=== PATIENT | female | born 1930 | race African-American/Black ===

== ENCOUNTER 2018-11-14 20:14 | Inpatient (IN) | payer MEDICARE, OTHER ==
[~2018-11-14] VITALS: Ht 172.7 cm; Wt 60.8 kg
[2018-11-14 11:00] VITALS: BP 108/63
[2018-11-14] MEDS ORDERED: ASPIRIN81 MG ORAL (20:19)
[2018-11-14] MEDS ORDERED: CATAPRES0.1 MG ORAL (20:19)
[2018-11-14] MEDS ORDERED: COLACE100 MG ORAL (20:19)
[2018-11-14] MEDS ORDERED: CRANBERRY450 M4 PO (20:19)
[2018-11-14] MEDS ORDERED: LEXAPRO10 MG ORAL (20:26)
[2018-11-14] MEDS ORDERED: ACETAMINOPHEN325 M1 ORAL (20:26)
[2018-11-14] MEDS ORDERED: ROBITUSSIN NIG237 ML PO (20:26)
[2018-11-14] MEDS ORDERED: MULTIVITAMINS1 EAC8 ORAL (20:26)
[2018-11-14] MEDS ORDERED: Nitroglycerin 2% oint pkt TOPIC ONE (20:30)
[2018-11-14] MEDS ORDERED: Sodium Chloride 500ML 550 ML IV SCH (20:30)
[2018-11-14 20:58] VITALS: BP 167/101
[2018-11-14 21:02] LABS: APPEARANCE,URINE SLIGHTLY CLOUDY; BILIRUBIN, URINE NEGATIVE (NEGATIVE); COLOR,URINE PALE YELLOW; GLUCOSE, URINE (UA) NEGATIVE (NEGATIVE); KETONES,URINE NEGATIVE (NEGATIVE); LEUKOCYTE ESTERASE ,URINE 2+ (NEGATIVE); NITRITE,URINE NEGATIVE (NEGATIVE); PH,URINE 7 (4.5-8.0); PROTEIN,URINE NEGATIVE (NEGATIVE); UROBILINOGEN,URINE NORMAL MG/DL (0.0-1.0)
--- NOTE | 2018-11-14 21:02 | NUR ---
ED Nurse Note: [facility] Patient sent to [facility] ED for evaluation of CP by PCP. Patient AOx3, VSS, no s/s of acute distress noted at this time. Patient denies chest pain at this time. Patient seen by ERMD at bedside.
[2018-11-14 21:04] LABS: BASOPHILS % (AUTO) 1.6 % (0.0-2.0); EOSINOPHILS % (AUTO) 3.5 % (0.0-3.0); HEMATOCRIT 38.7 % (37.0-47.0); HEMOGLOBIN 12.4 G/DL (12.0-16.0); LYMPHOCYTES % (AUTO) 20.9 % (20.0-45.0); MEAN CORPUSCULAR VOLUME 93 FL (80-99); MONOCYTES % (AUTO) 9.4 % (1.0-10.0); NEUTROPHILS % (AUTO) 64.6 % (45.0-75.0); PLATELET COUNT 237 K/UL (150-450); RED BLOOD COUNT 4.17 M/UL (4.20-5.40); RED CELL DISTRIBUTION WIDTH 12.4 % (11.6-14.8); WHITE BLOOD COUNT 9.6 K/UL (4.8-10.8)
[2018-11-14 21:13] LABS: ANION GAP 7 mmol/L (5-15); BLOOD UREA NITROGEN 9 mg/dL (7-18); CALCIUM 9.5 MG/DL (8.5-10.1); CARBON DIOXIDE 29 MMOL/L (21-32); CHLORIDE 99 MMOL/L (98-107); CREATININE 0.6 MG/DL (0.55-1.30); SODIUM 135 MMOL/L (136-145)
[2018-11-14 21:18] LABS: ALANINE AMINOTRANSFERASE 21 U/L (12-78); ALBUMIN 2.9 G/DL (3.4-5.0); ALBUMIN/GLOBULIN RATIO 0.6 (1.0-2.7); ALKALINE PHOSPHATASE 114 U/L (46-116); ASPARTATE AMINO TRANSFERASE 21 U/L (15-37); BILIRUBIN,TOTAL 0.3 MG/DL (0.2-1.0); CREATINE KINASE 59 U/L (26-308)
[2018-11-14] MEDS ORDERED: cefTRIAXone 1 GM in NS 55 ML IVPB ONE (21:45)
--- NOTE | 2018-11-14 21:57 | Emergency Room Report ---
History of Present Illness General Chief Complaint: Chest Pain Source: Patient, EMS Present Illness HPI Patient brought by EMS for c/o chest pain. She is pain free now and due to dementia, unable to describe the pain she had very well. Denies cough, dyspnea , sore throat, NVD. Denies NVD, dysuria, joint pain, headache, leg pain. H/O COPD H/O dementia H/O muscle weakness Allergies: Coded Allergies: No Known Allergies (Unverified , 11/14/18) Patient History Limited by: medical condition Past Medical History: see triage record, old chart reviewed Social History: Denies: smoking Social History Narrative never , [facility] Reviewed Nursing Documentation: PMH: Agreed; PSxH: Agreed Nursing Documentation-PMH Hx Hypertension: Yes Hx Neurological Problems: Yes - dementia Review of Systems All Other Systems: limited Physical Exam Vital Signs Date Time Temp Pulse Resp B/P (MAP) Pulse Ox O2 Delivery O2 Flow Rate FiO2 11/14/18 20:03 97.9 62 18 182/70 99 Room Air Sp02 EP Interpretation: reviewed, normal General Appearance: no apparent distress, thin, other - GCS 14, Chronically Ill Head: normocephalic Eyes: bilateral eye normal inspection, bilateral eye PERRL ENT: moist mucus membranes Neck: supple Respiratory: chest non-tender, lungs clear, normal breath sounds Cardiovascular #1: regular rate, rhythm, no edema, no murmur Cardiovascular #2: 2+ radial (L) Gastrointestinal: normal inspection, normal bowel sounds, non tender, no mass, non-distended, scaphoid Genitourinary: no CVA tenderness Musculoskeletal: back normal, normal range of motion, other - atrophy Neurologic: alert, motor strength/tone normal, DTRs symmetric, sensory intact, oriented - X2 Psychiatric: mood/affect normal, other - poor recent memory Skin: normal inspection, warm/dry Medical Decision Making Diagnostic Impression: Primary Impression: Chest pain Qualified Codes: R07.9 - Chest pain, unspecified Additional Impressions: UTI (urinary tract infection) Qualified Codes: N39.0 - Urinary tract infection, site not specified Protein calorie malnutrition Qualified Codes: E44.0 - Moderate protein-calorie malnutrition Dementia Qualified Codes: F03.90 - Unspecified dementia without behavioral disturbance ER Course Patient presents with chest pain. DDX: AMI, ACS, GERD amongst others. Difficult to assess due to dementia and poor ability to remember specifics of event. Evaluation with EKG, CXR, labs. As pain free now, treatment with nitro paste and aspirin. conveyor monitor. EKG with LAD and NSSTTW changes. CXR with increased raymundo. CBC normal. CMP with min low sodium, low albumen. Initial troponin negative. BNP min elevated. UA with pyuria. Rocephin started in ED. Patient continues to be pain free but needs cardiac rule out. Admit telemetry. Dr. Britton requests admit to Dr. Abebe. Laboratory Tests Test 11/14/18 20:45 White Blood Count 9.6 K/UL (4.8-10.8) Red Blood Count 4.17 M/UL (4.20-5.40) L Hemoglobin 12.4 G/DL (12.0-16.0) Hematocrit 38.7 % (37.0-47.0) Mean Corpuscular Volume 93 FL (80-99) Mean Corpuscular Hemoglobin 29.8 PG (27.0-31.0) Mean Corpuscular Hemoglobin Concent 32.2 G/DL (32.0-36.0) Red Cell Distribution Width 12.4 % (11.6-14.8) Platelet Count 237 K/UL (150-450) Mean Platelet Volume 6.5 FL (6.5-10.1) Neutrophils (%) (Auto) 64.6 % (45.0-75.0) Lymphocytes (%) (Auto) 20.9 % (20.0-45.0) Monocytes (%) (Auto) 9.4 % (1.0-10.0) Eosinophils (%) (Auto) 3.5 % (0.0-3.0) H Basophils (%) (Auto) 1.6 % (0.0-2.0) Prothrombin Time 10.2 SEC (9.30-11.50) Prothrombin Time INR 1.0 (0.9-1.1) PTT 28 SEC (23-33) Urine Color Pale yellow Urine Appearance Slightly cloudy Urine pH 7 (4.5-8.0) Urine Specific [place] 1.010 (1.005-1.035) Urine Protein Negative (NEGATIVE) Urine Glucose (UA) Negative (NEGATIVE) Urine Ketones Negative (NEGATIVE) Urine Blood 2+ (NEGATIVE) H Urine Nitrite Negative (NEGATIVE) Urine Bilirubin Negative (NEGATIVE) Urine Urobilinogen Normal MG/DL (0.0-1.0) Urine Leukocyte Esterase 2+ (NEGATIVE) H Urine RBC 10-15 /HPF (0 - 2) H Urine WBC 5-10 /HPF (0 - 2) H Urine Squamous Epithelial Cells Few /LPF (NONE/OCC) Urine Bacteria Many /HPF (NONE) H Sodium Level 135 MMOL/L (136-145) L Potassium Level 4.0 MMOL/L (3.5-5.1) Chloride Level 99 MMOL/L (98-107) Carbon Dioxide Level 29 MMOL/L (21-32) Anion Gap 7 mmol/L (5-15) Blood Urea Nitrogen 9 mg/dL (7-18) Creatinine 0.6 MG/DL (0.55-1.30) Estimate Glomerular Filtration Rate mL/min (>60) Glucose Level 115 MG/DL (74-106) H Calcium Level 9.5 MG/DL (8.5-10.1) Total Bilirubin 0.3 MG/DL (0.2-1.0) Aspartate Amino Transferase (AST) 21 U/L (15-37) Alanine Aminotransferase (ALT) 21 U/L (12-78) Alkaline Phosphatase 114 U/L (46-116) Total Creatine Kinase 59 U/L (26-308) Troponin I 0.012 ng/mL (0.000-0.056) Pro-B-Type Natriuretic Peptide 223 pg/mL (0-125) H Total Protein 7.4 G/DL (6.4-8.2) Albumin 2.9 G/DL (3.4-5.0) L Globulin 4.5 g/dL Albumin/Globulin Ratio 0.6 (1.0-2.7) L EKG Diagnostic Results Rate: normal Rhythm: NSR ST Segments: no acute changes - LAD and NSSTTW changes Rhythm Strip Diag. Results EP Interpretation: yes Rhythm: NSR, no PVC's, no ectopy Chest X-Ray Diagnostic Results Chest X-Ray Diagnostic Results : Chest X-Ray Ordered: Yes # of Views/Limited/Complete: 1 View Indication: Chest Pain EP Interpretation: Yes Interpretation: no effusion, no pneumothorax, other - CHF Last Vital Signs Date Time Temp Pulse Resp B/P (MAP) Pulse Ox O2 Delivery O2 Flow Rate FiO2 11/14/18 20:58 97.9 65 18 167/101 99 Room Air Status: improved Disposition: ADMITTED INPATIENT Condition: Serious Referrals: Matthew Britton MD (PCP) Eligio Frausto MD Nov 14, 2018 21:57
--- NOTE | 2018-11-14 22:45 | NUR ---
NURSE NOTES: Received report from Taran ESCOBEDO from ED.
[2018-11-14 22:53] VITALS: BP 163/73
--- NOTE | 2018-11-14 22:54 | NUR ---
ED Nurse Note: Patient transferred to telemetry unit. Patient transferred on [employer] [employer], connected to beer still runner compounder, by radio television technical director and executive staff assistant. Patient report given to Negra ESCOBEDO at bedside. Patient AOx3, VSS, non ambulatory due to weakness, no s/s of acute distress noted at this time. Patient tolerated transfer well.
[2018-11-14 23:00] VITALS: BP 108/63
[2018-11-15 04:00] VITALS: BP 148/77
[2018-11-15 05:40] VITALS: BP 148/77
[2018-11-15] MEDS: Heparin 5000 units/ml inj SUBQ SCH ×3 (06:16→21:12)
[2018-11-15] MEDS ORDERED: Guaifenesin/DM 10ml syrup ORAL PRN (06:30)
[2018-11-15 07:24] LABS: BASOPHILS % (AUTO) 1.6 % (0.0-2.0); EOSINOPHILS % (AUTO) 5.5 % (0.0-3.0); HEMATOCRIT 37.7 % (37.0-47.0); HEMOGLOBIN 12.4 G/DL (12.0-16.0); LYMPHOCYTES % (AUTO) 19.7 % (20.0-45.0); MEAN CORPUSCULAR VOLUME 91 FL (80-99); MONOCYTES % (AUTO) 7.9 % (1.0-10.0); NEUTROPHILS % (AUTO) 65.3 % (45.0-75.0); PLATELET COUNT 231 K/UL (150-450); RED BLOOD COUNT 4.12 M/UL (4.20-5.40); RED CELL DISTRIBUTION WIDTH 12.5 % (11.6-14.8); WHITE BLOOD COUNT 7.6 K/UL (4.8-10.8)
--- NOTE | 2018-11-15 07:31 | NUR ---
NURSE NOTES: received patient report from raul dupont. patient is on bed. asleep. no acute distress noted. denies pain. aox1-2. bed is in low position. call light within reach. will continue to monitor.
[2018-11-15 07:33] LABS: ALANINE AMINOTRANSFERASE 20 U/L (12-78); ALBUMIN 2.9 G/DL (3.4-5.0); ALBUMIN/GLOBULIN RATIO 0.6 (1.0-2.7); ALKALINE PHOSPHATASE 107 U/L (46-116); ANION GAP 7 mmol/L (5-15); ASPARTATE AMINO TRANSFERASE 22 U/L (15-37); BILIRUBIN,TOTAL 0.4 MG/DL (0.2-1.0); BLOOD UREA NITROGEN 6 mg/dL (7-18); CALCIUM 9.6 MG/DL (8.5-10.1); CARBON DIOXIDE 27 MMOL/L (21-32); CHLORIDE 105 MMOL/L (98-107); CREATININE 0.6 MG/DL (0.55-1.30); PHOSPHORUS 3.3 MG/DL (2.5-4.9); SODIUM 139 MMOL/L (136-145)
[2018-11-15 08:00] VITALS: BP 134/82
[2018-11-15] MEDS: Multivitamin w/Minerals tab ORAL SCH (08:36)
[2018-11-15] MEDS: Aspirin Baby 81mg ORAL SCH (08:36)
[2018-11-15] MEDS: Docusate 100mg cap ORAL SCH (08:44)
--- NOTE | 2018-11-15 10:50 | NUR ---
CASE MANAGEMENT: REVIEW /F BIBA FROM [facility] CC: CHEST PAIN SI: ACS . UTI T 97.9 HR 62 RR 18 BP 182/70 SAT 99% ROOM AIR NA 135 TROPONIN I 0.012 IS: NS IVF BOLUS X1 NITRO TOPICAL X1 ASA PO X1 CEFTRIAXONE IV X1 INTERQUAL CRITERIA MET: PATIENT ADMITTED TO TELEMETRY UNIT 11/14/2018 DCP: PATIENT IS FROM [facility]
--- NOTE | 2018-11-15 11:21 | Diagnostic Imaging Report ---
Indication: Chest pain Technique: One view of the chest Comparison: none Findings: There is bilateral interstitial disease and central bronchial wall thickening and likely bronchiectasis. Some atelectasis or scarring is seen in the right perihilar region No definite focal airspace consolidation. No effusions. The heart is borderline enlarged with a left ventricular hypertrophy configuration. The aorta is tortuous and calcified. Impression: Bilateral interstitial disease, suspect on the basis of chronic fibrotic and/or senescent changes. Acute interstitial edema not completely excludable. Correlation with clinical findings is recommended. Borderline cardiomegaly Right perihilar atelectasis versus scarring
[2018-11-15 12:00] VITALS: BP 121/66
--- NOTE | 2018-11-15 13:04 | History & Physical ---
History and Physical History & Physicial Vincenzo bAebe MD Nov 15, 2018 13:04
--- NOTE | 2018-11-15 14:11 | Cardiac Electrophysiology PN ---
Subjective Subjective [id number] Objective Last 24 Hour Vital Signs Date Time Temp Pulse Resp B/P (MAP) Pulse Ox O2 Delivery O2 Flow Rate FiO2 11/15/18 09:00 Room Air 11/15/18 08:00 72 11/15/18 08:00 96.3 59 18 134/82 (99) 96 11/15/18 04:00 97.2 88 18 148/77 (100) 94 11/14/18 23:00 96.9 62 18 108/63 (78) 96 11/14/18 22:55 97.9 60 21 163/73 100 Room Air 11/14/18 22:55 Room Air 11/14/18 22:53 97.9 60 21 163/73 100 Room Air 11/14/18 20:58 97.9 65 18 167/101 99 Room Air 11/14/18 20:58 62 18 Room Air 11/14/18 20:47 167/101 11/14/18 20:03 97.9 62 18 182/70 99 Room Air Intake and Output 11/14/18 11/15/18 19:00 07:00 # Voids 3 # Bowel Movements 1 Laboratory Tests Test 11/14/18 20:45 11/15/18 06:15 White Blood Count 9.6 K/UL (4.8-10.8) 7.6 K/UL (4.8-10.8) Red Blood Count 4.17 M/UL (4.20-5.40) L 4.12 M/UL (4.20-5.40) L Hemoglobin 12.4 G/DL (12.0-16.0) 12.4 G/DL (12.0-16.0) Hematocrit 38.7 % (37.0-47.0) 37.7 % (37.0-47.0) Mean Corpuscular Volume 93 FL (80-99) 91 FL (80-99) Mean Corpuscular Hemoglobin 29.8 PG (27.0-31.0) 30.1 PG (27.0-31.0) Mean Corpuscular Hemoglobin Concent 32.2 G/DL (32.0-36.0) 32.9 G/DL (32.0-36.0) Red Cell Distribution Width 12.4 % (11.6-14.8) 12.5 % (11.6-14.8) Platelet Count 237 K/UL (150-450) 231 K/UL (150-450) Mean Platelet Volume 6.5 FL (6.5-10.1) 6.4 FL (6.5-10.1) L Neutrophils (%) (Auto) 64.6 % (45.0-75.0) 65.3 % (45.0-75.0) Lymphocytes (%) (Auto) 20.9 % (20.0-45.0) 19.7 % (20.0-45.0) L Monocytes (%) (Auto) 9.4 % (1.0-10.0) 7.9 % (1.0-10.0) Eosinophils (%) (Auto) 3.5 % (0.0-3.0) H 5.5 % (0.0-3.0) H Basophils (%) (Auto) 1.6 % (0.0-2.0) 1.6 % (0.0-2.0) Prothrombin Time 10.2 SEC (9.30-11.50) Prothromb Time International Ratio 1.0 (0.9-1.1) Activated Partial Thromboplast Time 28 SEC (23-33) Urine Color Pale yellow Urine Appearance Slightly cloudy Urine pH 7 (4.5-8.0) Urine Specific [place] 1.010 (1.005-1.035) Urine Protein Negative (NEGATIVE) Urine Glucose (UA) Negative (NEGATIVE) Urine Ketones Negative (NEGATIVE) Urine Blood 2+ (NEGATIVE) H Urine Nitrite Negative (NEGATIVE) Urine Bilirubin Negative (NEGATIVE) Urine Urobilinogen Normal MG/DL (0.0-1.0) Urine Leukocyte Esterase 2+ (NEGATIVE) H Urine RBC 10-15 /HPF (0 - 2) H Urine WBC 5-10 /HPF (0 - 2) H Urine Squamous Epithelial Cells Few /LPF (NONE/OCC) Urine Bacteria Many /HPF (NONE) H Sodium Level 135 MMOL/L (136-145) L 139 MMOL/L (136-145) Potassium Level 4.0 MMOL/L (3.5-5.1) 4.0 MMOL/L (3.5-5.1) Chloride Level 99 MMOL/L (98-107) 105 MMOL/L (98-107) Carbon Dioxide Level 29 MMOL/L (21-32) 27 MMOL/L (21-32) Anion Gap 7 mmol/L (5-15) 7 mmol/L (5-15) Blood Urea Nitrogen 9 mg/dL (7-18) 6 mg/dL (7-18) L Creatinine 0.6 MG/DL (0.55-1.30) 0.6 MG/DL (0.55-1.30) Estimat Glomerular Filtration Rate mL/min (>60) mL/min (>60) Glucose Level 115 MG/DL (74-106) H 85 MG/DL (74-106) Calcium Level 9.5 MG/DL (8.5-10.1) 9.6 MG/DL (8.5-10.1) Total Bilirubin 0.3 MG/DL (0.2-1.0) 0.4 MG/DL (0.2-1.0) Aspartate Amino Transf (AST/SGOT) 21 U/L (15-37) 22 U/L (15-37) Alanine Aminotransferase (ALT/SGPT) 21 U/L (12-78) 20 U/L (12-78) Alkaline Phosphatase 114 U/L (46-116) 107 U/L (46-116) Total Creatine Kinase 59 U/L (26-308) Troponin I 0.012 ng/mL (0.000-0.056) 0.017 ng/mL (0.000-0.056) Pro-B-Type Natriuretic Peptide 223 pg/mL (0-125) H 269 pg/mL (0-125) H Total Protein 7.4 G/DL (6.4-8.2) 7.6 G/DL (6.4-8.2) Albumin 2.9 G/DL (3.4-5.0) L 2.9 G/DL (3.4-5.0) L Globulin 4.5 g/dL 4.7 g/dL Albumin/Globulin Ratio 0.6 (1.0-2.7) L 0.6 (1.0-2.7) L Phosphorus Level 3.3 MG/DL (2.5-4.9) Magnesium Level 1.8 MG/DL (1.8-2.4) Microbiology Date/Time Source Procedure Growth Status 11/14/18 20:45 Urine,Clean Catch Urine Culture - Preliminary Resulted Buzz Rodrigues MD Nov 15, 2018 14:11
[2018-11-15] MEDS: cefTRIAXone 1 GM in D5W 50 ML IVPB SCH (14:58)
[2018-11-15 16:00] VITALS: BP 153/90
--- NOTE | 2018-11-15 18:30 | History and Physical Report ---
DATE OF ADMISSION: 11/14/2018 CHIEF COMPLAINT: Transferred from the [facility] due to chest pain. 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 The patient stated the chest pain radiated to the chin. No nausea or vomiting. Level of pain was noted to be 6/10. The patient is a poor historian. Most of the history is taken from [facility] documentation as well as the ER chart. Shortly after initial evaluation in the emergency, the patient was admitted to the hospital with chest pain, possible acute coronary syndrome as well as urinary tract infection. PAST MEDICAL HISTORY/PAST SURGICAL HISTORY: As above, history of COPD, oropharyngeal dysphagia, dementia, history of severe protein-calorie malnutrition, paroxysmal atrial fibrillation, osteoarthritis, hypertensive urgency, degenerative joint disease of the spine, and prior history of encephalopathy. MEDICATIONS: At the nursing facility is significant for aspirin 81 mg daily, clonidine 0.1 mg every six hours p.r.n. for systolic greater than 160, Colace 100 mg once a day, cranberry tablets, Lexapro 10 mg, multivitamin, Robitussin DM p.r.n., and p.r.n. ALLERGIES: No known drug allergies. SOCIAL HISTORY: half-way resident. No smoking, alcohol, or drugs. FAMILY HISTORY: Noncontributory. REVIEW OF SYSTEMS: Very limited secondary to the patient's status. No fever or chills. No nausea or vomiting. Complained about the back pain, arthritis, and joint pain. Denies any loss of consciousness. Denies any fall or head trauma. PHYSICAL EXAMINATION: VITAL SIGNS: On admission from the ER, temperature 97.9, pulse 62, respirations 18, and blood pressure 182/70. GENERAL: The patient is awake and responsive, in no acute distress, forgetful, and chronic ill-looking. HEAD AND NECK: Pupils are equal and reactive to light. Extraocular movements intact. Neck was supple. No JVD. Mouth has poor dentition. Neck was supple. No JVD. LUNGS: Good air entry. No wheezes or rales. Decreased air in the bases. HEART: S1, S2. Distant heart sounds. No murmurs, gallops, or rubs appreciated. ABDOMEN: Soft, nondistended, and nontender. Positive bowel sounds. EXTREMITIES: No cyanosis, clubbing, or edema. NEUROLOGIC: Cranial nerves II through XII grossly intact. The patient is moving all the extremities spontaneously. Gait was not assessed due to the patient's status. RECTAL: Refused and deferred. GENITOURINARY: Refused and deferred. PSYCHIATRIC: Mood and affect is intact. LABORATORY AND DIAGNOSTIC DATA: On admission from the ER, WBC of 9.6, hemoglobin 12, hematocrit 38, and platelet 237,000. Sodium 135, potassium 4.0, chloride 99, bicarbonate 29, BUN 9, and creatinine 0.6. Glucose is 115. Calcium is 9.5. First troponin is 0.012, second troponin 0.017. Pro-BNP of 223. PT 10, INR 1.0, and PTT 28. UA with + 2 blood, negative nitrite, +2 leukocytes, and many bacteria. Chest x-ray shows borderline cardiomegaly, bilateral interstitial disease suspected on the basis of chronic fibrotic and/or changes acute interstitial edema not completely excluded. ASSESSMENT: 1. Chest pain, possible acute coronary syndrome. 2. Paroxysmal atrial fibrillation. 3. Hypertension. 4. History of advanced dementia. 5. Hyponatremia. 6. Urinary tract infection. PLAN: 1. Admit the patient to monitored unit. 2. We will follow up with Dr. Rodrigues from Cardiology and Dr. Britton from Nephrology. 3. Broad spectrum antibiotic with Rocephin. 4. Monitor serial cardiac enzymes. 5. Code status, Full Code at this time. 6. DVT prophylaxis, heparin subcutaneous. Vincenzo Abebe M.D. DR: LEANDRO JOB#: [id number] CC:
--- NOTE | 2018-11-15 19:00 | Consultation ---
DATE OF CONSULTATION: 11/15/2018 CARDIOLOGY CONSULTATION CONSULTING PHYSICIAN: Buzz Rodrigues M.D. REFERRING PHYSICIAN: Vincenzo Abebe M.D. REASON FOR CONSULTATION: Chest pain and accelerated hypertension. HISTORY OF PRESENT ILLNESS: The patient is an 88-year-old lady with history of hypertension and dementia, was brought in from long-term for chest pain by paramedics. The patient also has history of COPD. The patient's blood pressure in the ER was 182/70, pulse was 62. The patient was admitted and a Cardiology consultation was obtained for further evaluation and management. REVIEW OF SYSTEMS: Negative other than what is mentioned in the history of present illness PAST MEDICAL HISTORY: As mentioned above. FAMILY HISTORY: Noncontributory. SOCIAL HISTORY: senior living resident. Does not smoke or drink alcohol. PHYSICAL EXAMINATION: VITAL SIGNS: Blood pressure was 162/76, currently 134/82; pulse 69; respirations 18; and temperature 96.3. HEAD AND NECK: No JVD or carotid bruits. LUNGS: Clear. CARDIOVASCULAR: Regular S1 and S2 with no gallop or murmur. ABDOMEN: Soft. EXTREMITIES: No pitting edema. LABORATORY AND DIAGNOSTIC DATA: Her labs show white count of 7.7, hemoglobin 12.4, hematocrit 37.7, and platelet count 231,000. Sodium 139, potassium 4.0, BUN 6, and creatinine 0.6. Troponin is negative x2. ASSESSMENT AND PLAN: 1. Chest pain. The pain is atypical. The patient was ruled out for myocardial infarction. Currently, she does not have any chest pain. We will get echocardiogram to evaluate for ejection fraction and wall motion abnormality. In the meantime continue the patient on aspirin 81 mg daily. 2. Hypertension. Start the patient on Lopressor 25 mg b.i.d. to chest pain as well. 3. Dementia. 4. Questionable history of atrial fibrillation, currently remain in sinus rhythm. Thank you very much, Dr. Abebe, for allowing me to participate in the care of this patient. Please do not hesitate to contact me for any questions regarding my evaluation. Buzz Rodrigues M.D. DR: JONA JOB#: [id number] CC:
--- NOTE | 2018-11-15 19:32 | NUR ---
HAND-OFF: Report given to joseilto dupont.
--- NOTE | 2018-11-15 19:50 | NUR ---
NURSE NOTES: Pt received from GREGG Muñoz alert and oriented x4 with no s/s of pain, SOB, or n/v. IV site lost per night RN "pt d/mitzy IV in her confusion". RN will attempt to put in IV for patient at a later time. Bed in lowest position, call light and belongings within reach.
[2018-11-15 20:00] VITALS: BP 131/77
[2018-11-16] VITALS: BP 145/88
[2018-11-16 04:00] VITALS: BP 131/67
[2018-11-16] MEDS: Heparin 5000 units/ml inj SUBQ SCH ×3 (05:47→21:23)
--- NOTE | 2018-11-16 07:11 | Cardiology Report ---
APPROVED REPORT EXAM: Two-dimensional and M-mode echocardiogram with Doppler and color Doppler. INDICATION Bradycardia M-Mode DIMENSIONS IVSd0.7 (0.7-1.1cm)Left Atrium (MM)3.5 (1.6-4.0cm) LVDd4.8 (3.5-5.6cm)Aortic Root3.1 (2.0-3.7cm) PWd0.7 (0.7-1.1cm)Aortic Cusp Exc.1.9 (1.5-2.0cm) LVDs3.0 (2.5-4.0cm) PWs1.0 cm Technically difficult study due to poor apical windows. Study quality precludes accurate assessment of regional wall motion. Normal left ventricular chamber size, systolic function and wall motion to extent visualized. Left ventricular ejection fraction estimated to be 60 %. No evidence of left ventricular hypertrophy. No evidence of pericardial effusion. All other cardiac chamber sizes are within normal limits. Mild focal aortic valve sclerosis with adequate cusp excursion. Mildly thickened mitral valve leaflets with normal excursion. Mild mitral annulus and aortic root calcification. Pulmonic valve not well visualized. Normal tricuspid valve structure. Subcostal views not obtainable. A color flow and spectral Doppler study was performed and revealed: Mild aortic insufficiency. No mitral regurgitation. Mitral diastolic velocities suggest mild left ventricular diastolic dysfunction (Grade I). Mild tricuspid regurgitation. Tricuspid systolic velocities suggests peak right ventricular systolic pressure of 37 mmHg, consistent with mild pulmonary hypertension. Mild pulmonic regurgitation present.
[2018-11-16 07:14] LABS: BASOPHILS % (AUTO) 2.1 % (0.0-2.0); EOSINOPHILS % (AUTO) 3.7 % (0.0-3.0); HEMOGLOBIN 12.1 G/DL (12.0-16.0); LYMPHOCYTES % (AUTO) 19.1 % (20.0-45.0); MEAN CORPUSCULAR VOLUME 91 FL (80-99); NEUTROPHILS % (AUTO) 68.1 % (45.0-75.0); PLATELET COUNT 230 K/UL (150-450); RED BLOOD COUNT 4.06 M/UL (4.20-5.40); RED CELL DISTRIBUTION WIDTH 12.4 % (11.6-14.8); WHITE BLOOD COUNT 7.9 K/UL (4.8-10.8)
--- NOTE | 2018-11-16 07:25 | NUR ---
HAND-OFF: Report given to GREGG Valencia.
--- NOTE | 2018-11-16 07:35 | NUR ---
NURSE NOTES: Report received from GREGG Sargent. Patient awake. AO x 1. In RA. Denies any pain or SOB. IV patent. Bed on lowest position, side rails upx2, brakes engaged. Call light within easy reach.
[2018-11-16 08:00] VITALS: BP 116/70
[2018-11-16] MEDS ORDERED: LORazepam Inj 2mg/ml 1ml IV PRN (08:00)
[2018-11-16 08:18] LABS: ALANINE AMINOTRANSFERASE 14 U/L (12-78); ALBUMIN/GLOBULIN RATIO 0.8 (1.0-2.7); ALKALINE PHOSPHATASE 112 U/L (46-116); ANION GAP 7 mmol/L (5-15); ASPARTATE AMINO TRANSFERASE 22 U/L (15-37); BILIRUBIN,TOTAL 0.7 MG/DL (0.2-1.0); BLOOD UREA NITROGEN 11 mg/dL (7-18); CALCIUM 9.2 MG/DL (8.5-10.1); CARBON DIOXIDE 30 MMOL/L (21-32); CHLORIDE 102 MMOL/L (98-107); CHOLESTEROL 207 MG/DL (< 200); CREATININE 0.6 MG/DL (0.55-1.30); HDL CHOLESTEROL 49 MG/DL (40-60); POTASSIUM 4.2 MMOL/L (3.5-5.1); SODIUM 138 MMOL/L (136-145); TRIGLYCERIDES 94 MG/DL (30-150)
[2018-11-16] MEDS: Docusate 100mg cap ORAL SCH (09:00)
[2018-11-16] MEDS: Multivitamin w/Minerals tab ORAL SCH (09:17)
[2018-11-16] MEDS: Aspirin Baby 81mg ORAL SCH (09:18)
[2018-11-16 12:00] VITALS: BP 133/78
--- NOTE | 2018-11-16 14:06 | Cardiac Electrophysiology PN ---
Assessment/Plan Assessment/Plan 1. Chest pain. The pain is atypical. The patient was ruled out for myocardial infarction. Currently, she does not have any chest pain. Echo EF 60%. On aspirin 81 mg daily.Stress test on Sunday 2. Hypertension.On Lasix 20 daily 3. Dementia. 4. Questionable history of atrial fibrillation, currently remain in sinus rhythm. SHERRY RN Subjective Subjective Comfortable in NAD. In SR with no arrhythmias. Pleasantly confused Objective Last 24 Hour Vital Signs Date Time Temp Pulse Resp B/P (MAP) Pulse Ox O2 Delivery O2 Flow Rate FiO2 11/16/18 12:00 58 11/16/18 12:00 97.8 63 18 133/78 (96) 95 11/16/18 09:00 Room Air 11/16/18 08:00 97.7 62 18 116/70 (85) 100 11/16/18 08:00 69 11/16/18 04:00 61 11/16/18 04:00 97.5 72 18 131/67 (88) 98 11/16/18 00:00 97.5 83 18 145/88 (107) 98 11/16/18 00:00 66 11/15/18 21:00 Room Air 11/15/18 20:00 97.0 68 17 131/77 (95) 97 11/15/18 20:00 88 11/15/18 16:00 63 11/15/18 16:00 96.9 66 18 153/90 (111) 98 Intake and Output 11/15/18 11/16/18 19:00 07:00 Intake Total 390 ml 100 ml Output Total 700 ml 450 ml Balance -310 ml -350 ml Intake Oral 390 ml 100 ml Output Urine Total 700 ml 450 ml Laboratory Tests Test 11/16/18 06:15 White Blood Count 7.9 K/UL (4.8-10.8) Red Blood Count 4.06 M/UL (4.20-5.40) L Hemoglobin 12.1 G/DL (12.0-16.0) Hematocrit 37.0 % (37.0-47.0) Mean Corpuscular Volume 91 FL (80-99) Mean Corpuscular Hemoglobin 29.9 PG (27.0-31.0) Mean Corpuscular Hemoglobin Concent 32.7 G/DL (32.0-36.0) Red Cell Distribution Width 12.4 % (11.6-14.8) Platelet Count 230 K/UL (150-450) Mean Platelet Volume 6.0 FL (6.5-10.1) L Neutrophils (%) (Auto) 68.1 % (45.0-75.0) Lymphocytes (%) (Auto) 19.1 % (20.0-45.0) L Monocytes (%) (Auto) 7.0 % (1.0-10.0) Eosinophils (%) (Auto) 3.7 % (0.0-3.0) H Basophils (%) (Auto) 2.1 % (0.0-2.0) H Sodium Level 138 MMOL/L (136-145) Potassium Level 4.2 MMOL/L (3.5-5.1) Chloride Level 102 MMOL/L (98-107) Carbon Dioxide Level 30 MMOL/L (21-32) Anion Gap 7 mmol/L (5-15) Blood Urea Nitrogen 11 mg/dL (7-18) Creatinine 0.6 MG/DL (0.55-1.30) Estimat Glomerular Filtration Rate mL/min (>60) Glucose Level 90 MG/DL (74-106) Calcium Level 9.2 MG/DL (8.5-10.1) Phosphorus Level 3.0 MG/DL (2.5-4.9) Magnesium Level 1.8 MG/DL (1.8-2.4) Total Bilirubin 0.7 MG/DL (0.2-1.0) Aspartate Amino Transf (AST/SGOT) 22 U/L (15-37) Alanine Aminotransferase (ALT/SGPT) 14 U/L (12-78) Alkaline Phosphatase 112 U/L (46-116) Troponin I 0.000 ng/mL (0.000-0.056) Total Protein 7.0 G/DL (6.4-8.2) Albumin 3.0 G/DL (3.4-5.0) L Globulin 4.0 g/dL Albumin/Globulin Ratio 0.8 (1.0-2.7) L Triglycerides Level 94 MG/DL (30-150) Cholesterol Level 207 MG/DL (< 200) H LDL Cholesterol 144 mg/dL (<100) H HDL Cholesterol 49 MG/DL (40-60) Cholesterol/HDL Ratio 4.2 (3.3-4.4) Thyroid Stimulating Hormone (TSH) 1.740 uiU/mL (0.358-3.740) Free Thyroxine 1.14 NG/DL (0.76-1.46) Microbiology Date/Time Source Procedure Growth Status 11/14/18 20:45 Urine,Clean Catch Urine Culture - Preliminary Gram Negative Aravind Resulted Objective HEAD AND NECK: No JVD or carotid bruits. LUNGS: Clear. CARDIOVASCULAR: Regular S1 and S2 with no gallop or murmur. ABDOMEN: Soft. EXTREMITIES: No pitting edema. Buzz Rodrigues MD Nov 16, 2018 14:06
--- NOTE | 2018-11-16 14:19 | Internal Med Progress Note ---
Subjective Date of Service: Nov 16, 2018 Physician Name Jase De La Torre Attending Physician Vincenzo Abebe MD Current Medications Medications (Trade) Dose Ordered Sig/Abiel Route PRN Reason Start Time Stop Time Status Last Admin Dose Admin Acetaminophen (Tylenol) 325 mg Q4H PRN ORAL Mild Pain (Pain Scale 1-3) 11/15/18 01:00 12/15/18 00:59 Aspirin (ASA) 81 mg DAILY ORAL 11/15/18 09:00 12/15/18 08:59 11/16/18 09:18 Ceftriaxone Sodium 1 gm/ Dextrose 50 ml @ 100 mls/hr Q24H IVPB 11/15/18 14:00 11/22/18 13:59 11/15/18 14:58 Clonidine HCl (Catapres Tab) 0.1 mg Q6H PRN ORAL For High Blood Pressure 11/15/18 01:00 12/15/18 00:59 Docusate Sodium (Colace) 100 mg DAILY ORAL 11/15/18 09:00 12/15/18 08:59 11/15/18 08:44 Escitalopram Oxalate (Lexapro) 10 mg DAILY ORAL 11/15/18 09:00 12/15/18 08:59 11/16/18 09:18 Furosemide (Lasix) 20 mg DAILY IV 11/15/18 09:00 12/15/18 08:59 11/16/18 09:18 Guaifenesin/ Dextromethorphan (Robitussin DM Syrup) 10 ml Q4H PRN ORAL For Cough 11/15/18 06:30 12/15/18 06:29 Heparin Sodium (Porcine) (Heparin 5000 units/ml) 5,000 units EVERY 8 HOURS SUBQ 11/15/18 06:00 12/15/18 05:59 11/16/18 05:47 Lorazepam (Ativan 2mg/ml 1ml) 0.5 mg Q6H PRN IV Agitation 11/16/18 08:00 11/23/18 07:59 Multivitamins Therapeutic (Therapeutic Multivitamin) 1 ea DAILY ORAL 11/15/18 09:00 12/15/18 08:59 11/16/18 09:17 Regadenoson (Lexiscan) 0.4 mg ONCE PRN IV stress test 11/17/18 09:00 11/18/18 18:00 Allergies: Coded Allergies: No Known Allergies (Unverified , 11/14/18) ROS Limited/Unobtainable: Yes Subjective 88 YO F admitted with chest pain. Cover for Int Dougie-Dr Abebe Objective Last Vital Signs Date Time Temp Pulse Resp B/P (MAP) Pulse Ox O2 Delivery O2 Flow Rate FiO2 11/16/18 12:00 58 11/16/18 12:00 97.8 18 133/78 (96) 95 11/16/18 09:00 Room Air Laboratory Tests Test 11/16/18 06:15 White Blood Count 7.9 K/UL (4.8-10.8) Red Blood Count 4.06 M/UL (4.20-5.40) L Hemoglobin 12.1 G/DL (12.0-16.0) Hematocrit 37.0 % (37.0-47.0) Mean Corpuscular Volume 91 FL (80-99) Mean Corpuscular Hemoglobin 29.9 PG (27.0-31.0) Mean Corpuscular Hemoglobin Concent 32.7 G/DL (32.0-36.0) Red Cell Distribution Width 12.4 % (11.6-14.8) Platelet Count 230 K/UL (150-450) Mean Platelet Volume 6.0 FL (6.5-10.1) L Neutrophils (%) (Auto) 68.1 % (45.0-75.0) Lymphocytes (%) (Auto) 19.1 % (20.0-45.0) L Monocytes (%) (Auto) 7.0 % (1.0-10.0) Eosinophils (%) (Auto) 3.7 % (0.0-3.0) H Basophils (%) (Auto) 2.1 % (0.0-2.0) H Sodium Level 138 MMOL/L (136-145) Potassium Level 4.2 MMOL/L (3.5-5.1) Chloride Level 102 MMOL/L (98-107) Carbon Dioxide Level 30 MMOL/L (21-32) Anion Gap 7 mmol/L (5-15) Blood Urea Nitrogen 11 mg/dL (7-18) Creatinine 0.6 MG/DL (0.55-1.30) Estimat Glomerular Filtration Rate mL/min (>60) Glucose Level 90 MG/DL (74-106) Calcium Level 9.2 MG/DL (8.5-10.1) Phosphorus Level 3.0 MG/DL (2.5-4.9) Magnesium Level 1.8 MG/DL (1.8-2.4) Total Bilirubin 0.7 MG/DL (0.2-1.0) Aspartate Amino Transf (AST/SGOT) 22 U/L (15-37) Alanine Aminotransferase (ALT/SGPT) 14 U/L (12-78) Alkaline Phosphatase 112 U/L (46-116) Troponin I 0.000 ng/mL (0.000-0.056) Total Protein 7.0 G/DL (6.4-8.2) Albumin 3.0 G/DL (3.4-5.0) L Globulin 4.0 g/dL Albumin/Globulin Ratio 0.8 (1.0-2.7) L Triglycerides Level 94 MG/DL (30-150) Cholesterol Level 207 MG/DL (< 200) H LDL Cholesterol 144 mg/dL (<100) H HDL Cholesterol 49 MG/DL (40-60) Cholesterol/HDL Ratio 4.2 (3.3-4.4) Thyroid Stimulating Hormone (TSH) 1.740 uiU/mL (0.358-3.740) Free Thyroxine 1.14 NG/DL (0.76-1.46) Microbiology Date/Time Source Procedure Growth Status 11/14/18 20:45 Urine,Clean Catch Urine Culture - Preliminary Gram Negative Aravind Resulted Intake and Output 11/15/18 11/16/18 19:00 07:00 Intake Total 390 ml 100 ml Output Total 700 ml 450 ml Balance -310 ml -350 ml Intake Oral 390 ml 100 ml Output Urine Total 700 ml 450 ml Objective PHYSICAL EXAMINATION: GENERAL: The patient is awake and responsive, in no acute distress, forgetful, and chronic ill-looking. HEAD AND NECK: Pupils are equal and reactive to light. Extraocular movements intact. Neck was supple. No JVD. Mouth has poor dentition. Neck was supple. No JVD. LUNGS: Good air entry. No wheezes or rales. Decreased air in the bases. HEART: S1, S2. Distant heart sounds. No murmurs, gallops, or rubs appreciated. ABDOMEN: Soft, nondistended, and nontender. Positive bowel sounds. EXTREMITIES: No cyanosis, clubbing, or edema. NEUROLOGIC: Cranial nerves II through XII grossly intact. The patient is moving all the extremities spontaneously. Gait was not assessed due to the patient's status. RECTAL: Refused and deferred. GENITOURINARY: Refused and deferred. PSYCHIATRIC: Mood and affect is intact. Assessment/Plan Assessment/Plan ASSESSMENT: 1. Chest pain, possible acute coronary syndrome. 2. Paroxysmal atrial fibrillation. 3. Hypertension. 4. History of advanced dementia. 5. Hyponatremia. 6. Urinary tract infection. PLAN: 1. Admit the patient to monitored unit. 2. We will follow up with Dr. Rodrigues from Cardiology and Dr. Britton from Nephrology. 3. Broad spectrum antibiotic with Rocephin. 4. Monitor serial cardiac enzymes. 5. Code status, Full Code at this time. 6. DVT prophylaxis, heparin subcutaneous. Jase De La Torre MD Nov 16, 2018 14:19
[2018-11-16] MEDS: cefTRIAXone 1 GM in D5W 50 ML IVPB SCH (15:14)
[2018-11-16 16:00] VITALS: BP 121/70
--- NOTE | 2018-11-16 17:04 | NUR ---
PT Note PT dwaine completed, treatment initiated. Patient can benefit from PT services to address deficits in ROM, balance, strength to improve her functional mobility. Recommend for patient to bed DC'd back to SNF. Addendum: 11/16/18 at 1705 by JUANITA ESPINO PT Amended: Links added.
--- NOTE | 2018-11-16 19:38 | NUR ---
HAND-OFF: Report given to GREGG Pendleton. Patient in stable condition. Addendum: 11/16/18 at 1940 by Annie Dhaliwal RN HAND-OFF: Report given to GREGG Sethi. Patient in stable condition.
--- NOTE | 2018-11-16 19:44 | NUR ---
NURSE NOTES: Report received from GREGG Valencia. Pt is lying comfortably in bed in semi-fowlers position with no signs of distress. Pt is A+Ox2 and denies pain/SOB. IV site is patent, intact, and saline locked. Respirations are even and unlabored on room air. Bed is at lowest position, brakes engaged, siderailsx2, bed alarm on, and call light within reach. Pt is in stable condition at this time; will continue to monitor.
[2018-11-16 20:00] VITALS: BP 128/65
[2018-11-17] VITALS: BP 133/74
[2018-11-17 04:00] VITALS: BP 159/80
[2018-11-17] MEDS: Heparin 5000 units/ml inj SUBQ SCH ×3 (06:04→22:00)
--- NOTE | 2018-11-17 07:24 | NUR ---
HAND-OFF: Report given to GREGG Valencia. Pt is in stable condition; plan of care endorsed.
--- NOTE | 2018-11-17 07:24 | NUR ---
NURSE NOTES: Report received from GREGG Nathan. Pt is lying comfortably in bed in semi-fowlers position with no signs of distress. Pt is AOx1-2. In RA, denies pain or SOB. IV site is patent, intact, and saline locked. Bed at lowest position, brakes engaged, siderails upx2, bed alarm on, and call light within reach.
[2018-11-17 07:50] LABS: BASOPHILS % (AUTO) 1.7 % (0.0-2.0); EOSINOPHILS % (AUTO) 5.2 % (0.0-3.0); HEMATOCRIT 39.4 % (37.0-47.0); HEMOGLOBIN 12.8 G/DL (12.0-16.0); LYMPHOCYTES % (AUTO) 19.2 % (20.0-45.0); MEAN CORPUSCULAR VOLUME 92 FL (80-99); MONOCYTES % (AUTO) 9.4 % (1.0-10.0); NEUTROPHILS % (AUTO) 64.4 % (45.0-75.0); PLATELET COUNT 210 K/UL (150-450); RED CELL DISTRIBUTION WIDTH 12.8 % (11.6-14.8); WHITE BLOOD COUNT 6.7 K/UL (4.8-10.8)
[2018-11-17 08:00] VITALS: BP 125/73
[2018-11-17 08:24] LABS: ANION GAP 4 mmol/L (5-15); BLOOD UREA NITROGEN 14 mg/dL (7-18); CARBON DIOXIDE 30 MMOL/L (21-32); CHLORIDE 103 MMOL/L (98-107); CREATININE 0.6 MG/DL (0.55-1.30); POTASSIUM 4.1 MMOL/L (3.5-5.1); SODIUM 136 MMOL/L (136-145)
[2018-11-17 08:36] LABS: CALCIUM 9.6 MG/DL (8.5-10.1)
[2018-11-17] MEDS ORDERED: Lexiscan 0.4mg/5ml syringe IV PRN (09:00)
[2018-11-17] MEDS: Multivitamin w/Minerals tab ORAL SCH (09:40)
[2018-11-17] MEDS: Docusate 100mg cap ORAL SCH (09:40)
[2018-11-17] MEDS: Aspirin Baby 81mg ORAL SCH (09:40)
[2018-11-17 12:00] VITALS: BP 125/72
[2018-11-17] MEDS ORDERED: Docusate 100mg/10ml Liq ORAL SCH (14:00)
[2018-11-17] MEDS: cefTRIAXone 1 GM in D5W 50 ML IVPB SCH (14:22)
--- NOTE | 2018-11-17 15:17 | Internal Med Progress Note ---
Subjective Date of Service: Nov 17, 2018 Physician Name Jase De La Torre Attending Physician Vincenzo Abebe MD Current Medications Medications (Trade) Dose Ordered Sig/Abiel Route PRN Reason Start Time Stop Time Status Last Admin Dose Admin Acetaminophen (Tylenol) 325 mg Q4H PRN ORAL Mild Pain (Pain Scale 1-3) 11/15/18 01:00 12/15/18 00:59 Aspirin (ASA) 81 mg DAILY ORAL 11/15/18 09:00 12/15/18 08:59 11/17/18 09:40 Ceftriaxone Sodium 1 gm/ Dextrose 50 ml @ 100 mls/hr Q24H IVPB 11/15/18 14:00 11/22/18 13:59 11/17/18 14:22 Clonidine HCl (Catapres Tab) 0.1 mg Q6H PRN ORAL For High Blood Pressure 11/15/18 01:00 12/15/18 00:59 Docusate Sodium (Colace) 100 mg DAILY ORAL 11/18/18 09:00 12/18/18 08:59 Escitalopram Oxalate (Lexapro) 10 mg DAILY ORAL 11/15/18 09:00 12/15/18 08:59 11/17/18 09:40 Furosemide (Lasix) 20 mg DAILY IV 11/15/18 09:00 12/15/18 08:59 11/17/18 09:41 Guaifenesin/ Dextromethorphan (Robitussin DM Syrup) 10 ml Q4H PRN ORAL For Cough 11/15/18 06:30 12/15/18 06:29 Heparin Sodium (Porcine) (Heparin 5000 units/ml) 5,000 units EVERY 8 HOURS SUBQ 11/15/18 06:00 12/15/18 05:59 11/17/18 14:28 Lorazepam (Ativan 2mg/ml 1ml) 0.5 mg Q6H PRN IV Agitation 11/16/18 08:00 11/23/18 07:59 Multivitamins Therapeutic (Therapeutic Multivitamin) 1 ea DAILY ORAL 11/15/18 09:00 12/15/18 08:59 11/17/18 09:40 Regadenoson (Lexiscan) 0.4 mg ONCE PRN IV stress test 11/17/18 09:00 11/18/18 18:00 Allergies: Coded Allergies: No Known Allergies (Unverified , 11/14/18) ROS Limited/Unobtainable: No Constitutional: Reports: no symptoms HEENT: Reports: no symptoms Cardiovascular: Reports: no symptoms Respiratory: Reports: no symptoms Gastrointestinal/Abdominal: Reports: nausea Genitourinary: Reports: no symptoms Neurologic/Psychiatric: Reports: no symptoms Subjective 88 YO F admitted with chest pain. Cover for Int Dougie-Dr Abebe. C/O nausea Objective Last Vital Signs Date Time Temp Pulse Resp B/P (MAP) Pulse Ox O2 Delivery O2 Flow Rate FiO2 11/17/18 12:00 56 11/17/18 12:00 97.0 20 125/72 (89) 94 11/17/18 09:00 Room Air Laboratory Tests Test 11/17/18 06:02 White Blood Count 6.7 K/UL (4.8-10.8) Red Blood Count 4.30 M/UL (4.20-5.40) Hemoglobin 12.8 G/DL (12.0-16.0) Hematocrit 39.4 % (37.0-47.0) Mean Corpuscular Volume 92 FL (80-99) Mean Corpuscular Hemoglobin 29.7 PG (27.0-31.0) Mean Corpuscular Hemoglobin Concent 32.4 G/DL (32.0-36.0) Red Cell Distribution Width 12.8 % (11.6-14.8) Platelet Count 210 K/UL (150-450) Mean Platelet Volume 5.6 FL (6.5-10.1) L Neutrophils (%) (Auto) 64.4 % (45.0-75.0) Lymphocytes (%) (Auto) 19.2 % (20.0-45.0) L Monocytes (%) (Auto) 9.4 % (1.0-10.0) Eosinophils (%) (Auto) 5.2 % (0.0-3.0) H Basophils (%) (Auto) 1.7 % (0.0-2.0) Sodium Level 136 MMOL/L (136-145) Potassium Level 4.1 MMOL/L (3.5-5.1) Chloride Level 103 MMOL/L (98-107) Carbon Dioxide Level 30 MMOL/L (21-32) Anion Gap 4 mmol/L (5-15) L Blood Urea Nitrogen 14 mg/dL (7-18) Creatinine 0.6 MG/DL (0.55-1.30) Estimat Glomerular Filtration Rate mL/min (>60) Glucose Level 91 MG/DL (74-106) Calcium Level 9.6 MG/DL (8.5-10.1) Microbiology Date/Time Source Procedure Growth Status 11/14/18 21:30 Nasal Nares MRSA Culture - Final NO METHICILLIN RESISTANT STAPH AUREUS... Complete 11/14/18 20:45 Urine,Clean Catch Urine Culture - Final Escherichia Coli Complete 11/14/18 21:30 Rectum - Final NO CARBAPENEM-RESISTANT ENTEROBACTERI... Complete 11/14/18 21:30 Rectum VRE Culture - Final NO VANCOMYCIN RESISTANT ENTEROCOCCUS ... Complete Intake and Output 11/16/18 11/17/18 19:00 07:00 Intake Total 200 ml Output Total 900 ml Balance -700 ml Intake Oral 200 ml Output Urine Total 900 ml # Voids 4 1 # Bowel Movements 2 1 Objective PHYSICAL EXAMINATION: GENERAL: The patient is awake and responsive, in no acute distress, forgetful, and chronic ill-looking. HEAD AND NECK: Pupils are equal and reactive to light. Extraocular movements intact. Neck was supple. No JVD. Mouth has poor dentition. Neck was supple. No JVD. LUNGS: Good air entry. No wheezes or rales. Decreased air in the bases. HEART: S1, S2. Distant heart sounds. No murmurs, gallops, or rubs appreciated. ABDOMEN: Soft, nondistended, and nontender. Positive bowel sounds. EXTREMITIES: No cyanosis, clubbing, or edema. NEUROLOGIC: Cranial nerves II through XII grossly intact. The patient is moving all the extremities spontaneously. Gait was not assessed due to the patient's status. RECTAL: Refused and deferred. GENITOURINARY: Refused and deferred. PSYCHIATRIC: Mood and affect is intact. Assessment/Plan Assessment/Plan ASSESSMENT: 1. Chest pain, possible acute coronary syndrome. 2. Paroxysmal atrial fibrillation. 3. Hypertension. 4. History of advanced dementia. 5. Hyponatremia. 6. Urinary tract infection. 7. Nausea PLAN: 1. Admit the patient to monitored unit. 2. We will follow up with Dr. Rodrigues from Cardiology and Dr. Britton from Nephrology. 3. Broad spectrum antibiotic with Rocephin. 4. Monitor serial cardiac enzymes. 5. Code status, Full Code at this time. 6. DVT prophylaxis, heparin subcutaneous. Jase De La Torre MD Nov 17, 2018 15:17
[2018-11-17 16:00] VITALS: BP 124/70
--- NOTE | 2018-11-17 16:23 | NUR ---
CASE MANAGEMENT: REVIEW 11/17/2018 SI: ACS . UTI T 97 HR 60 B/P 125/72 SATS 94% ON RA NO LABS TODAY IS: LASIX IV QD ASA PO QD LEXAPRO PO QD CEFTRIAXONE IV Q24H PLAN OF CARE: CXR STRESS TEST W/ MEDS
--- NOTE | 2018-11-17 19:35 | NUR ---
HAND-OFF: Report given to GREGG Nathan. Patient in stable condition.
[2018-11-17 20:00] VITALS: BP 131/78
[2018-11-18] VITALS: BP 145/72
[2018-11-18 04:00] VITALS: BP 155/62
[2018-11-18] MEDS: Heparin 5000 units/ml inj SUBQ SCH ×5 (06:40→23:12)
--- NOTE | 2018-11-18 07:28 | NUR ---
HAND-OFF: Report given to GREGG Muñoz. Pt is in stable condition; plan of care endorsed.
--- NOTE | 2018-11-18 07:29 | NUR ---
NURSE NOTES: Left message with Dr. Rodrigues regarding pt's family refusing cardiac stress test. MD aware and okay to D/C order.
--- NOTE | 2018-11-18 07:32 | NUR ---
NURSE NOTES: received patient report from fadia dupont. patient is on bed awake.no acute distress noted. comfortably eating breakfast. will continue to monitor.
[2018-11-18 08:00] VITALS: BP 120/59
[2018-11-18 08:29] LABS: BASOPHILS % (AUTO) 1.4 % (0.0-2.0); EOSINOPHILS % (AUTO) 7.5 % (0.0-3.0); HEMATOCRIT 39.1 % (37.0-47.0); HEMOGLOBIN 12.7 G/DL (12.0-16.0); LYMPHOCYTES % (AUTO) 13.7 % (20.0-45.0); MEAN CORPUSCULAR VOLUME 91 FL (80-99); MONOCYTES % (AUTO) 9.9 % (1.0-10.0); NEUTROPHILS % (AUTO) 67.5 % (45.0-75.0); PLATELET COUNT 217 K/UL (150-450); RED BLOOD COUNT 4.27 M/UL (4.20-5.40); RED CELL DISTRIBUTION WIDTH 12.8 % (11.6-14.8); WHITE BLOOD COUNT 6.4 K/UL (4.8-10.8)
[2018-11-18] MEDS: Aspirin Baby 81mg ORAL SCH (08:38)
[2018-11-18] MEDS: Multivitamin w/Minerals tab ORAL SCH (08:38)
[2018-11-18 08:44] LABS: ANION GAP 7 mmol/L (5-15); BLOOD UREA NITROGEN 9 mg/dL (7-18); CALCIUM 9.6 MG/DL (8.5-10.1); CARBON DIOXIDE 28 MMOL/L (21-32); CHLORIDE 99 MMOL/L (98-107); CREATININE 0.6 MG/DL (0.55-1.30); SODIUM 134 MMOL/L (136-145)
[2018-11-18] MEDS ORDERED: Docusate 100mg/10ml Liq ORAL SCH (09:00)
--- NOTE | 2018-11-18 09:57 | Cardiac Electrophysiology PN ---
Assessment/Plan Assessment/Plan 1. Chest pain. The pain is atypical. The patient was ruled out for myocardial infarction. Currently, she does not have any chest pain. Echo EF 60%. On aspirin 81 mg daily.Family Stress test 2. Hypertension. DC Lasix 3. Dementia. 4. Questionable history of atrial fibrillation, currently remain in sinus rhythm. SHERRY RN Subjective Subjective Comfortable in NAD. In SR with no arrhythmias. Pleasantly confused. Granddaughter at bedside and refused stress test. Objective Last 24 Hour Vital Signs Date Time Temp Pulse Resp B/P (MAP) Pulse Ox O2 Delivery O2 Flow Rate FiO2 11/18/18 08:55 Room Air 11/18/18 08:00 96.3 64 18 120/59 (79) 92 11/18/18 07:23 89 11/18/18 04:00 97.9 69 20 155/62 (93) 96 11/18/18 04:00 65 11/18/18 00:00 66 11/18/18 00:00 97.3 72 20 145/72 (96) 94 11/17/18 21:00 Room Air 11/17/18 20:00 97.7 64 22 131/78 (95) 97 11/17/18 20:00 66 11/17/18 16:00 97.6 62 20 124/70 (88) 95 11/17/18 16:00 71 11/17/18 12:00 56 11/17/18 12:00 97.0 60 20 125/72 (89) 94 Intake and Output 11/17/18 11/18/18 18:59 06:59 Intake Total 120 ml 50 ml Balance 120 ml 50 ml Intake Oral 120 ml 50 ml # Voids 2 Laboratory Tests Test 11/18/18 07:05 White Blood Count 6.4 K/UL (4.8-10.8) Red Blood Count 4.27 M/UL (4.20-5.40) Hemoglobin 12.7 G/DL (12.0-16.0) Hematocrit 39.1 % (37.0-47.0) Mean Corpuscular Volume 91 FL (80-99) Mean Corpuscular Hemoglobin 29.8 PG (27.0-31.0) Mean Corpuscular Hemoglobin Concent 32.6 G/DL (32.0-36.0) Red Cell Distribution Width 12.8 % (11.6-14.8) Platelet Count 217 K/UL (150-450) Mean Platelet Volume 6.3 FL (6.5-10.1) L Neutrophils (%) (Auto) 67.5 % (45.0-75.0) Lymphocytes (%) (Auto) 13.7 % (20.0-45.0) L Monocytes (%) (Auto) 9.9 % (1.0-10.0) Eosinophils (%) (Auto) 7.5 % (0.0-3.0) H Basophils (%) (Auto) 1.4 % (0.0-2.0) Sodium Level 134 MMOL/L (136-145) L Potassium Level 4.0 MMOL/L (3.5-5.1) Chloride Level 99 MMOL/L (98-107) Carbon Dioxide Level 28 MMOL/L (21-32) Anion Gap 7 mmol/L (5-15) Blood Urea Nitrogen 9 mg/dL (7-18) Creatinine 0.6 MG/DL (0.55-1.30) Estimat Glomerular Filtration Rate mL/min (>60) Glucose Level 96 MG/DL (74-106) Calcium Level 9.6 MG/DL (8.5-10.1) Objective HEAD AND NECK: No JVD or carotid bruits. LUNGS: Clear. CARDIOVASCULAR: Regular S1 and S2 with no gallop or murmur. ABDOMEN: Soft. EXTREMITIES: No pitting edema. Buzz Rodrigues MD Nov 18, 2018 09:57
--- NOTE | 2018-11-18 11:00 | Diagnostic Imaging Report ---
Indication: Cough Technique: One view of the chest Comparison: 11/14/2018 Findings: Bronchial wall thickening and atelectasis at the right lung base persists. The heart size is borderline enlarged. The aorta is tortuous and calcified. Linear opacities in the left perihilar region persists. The pleural spaces are grossly clear. Findings are unchanged Impression: Unchanged, over 3 days, findings as above.
--- NOTE | 2018-11-18 11:23 | NUR ---
ST NOTE: BESIDE SWALLOW EVAL RECEIVED BEDSIDE SWALLOW EVAL CHART REVIEWED PRIOR THE EVAL PT IS A 88-YEAR-OLD FEMALE WHO WAS ADMITTED DUE TO CHEST PAIN. DYSPHAGIA RISK FACTORS: H/O DYSPHAGIA, DEMENTIA, COPD, SEVERE PROTEIN-CALORIE MALNUTRITION. PLOF: PT RESIDES AT SNF. PER CHART, PT WAS ON PUREE WITH THIN LIQUIDS. PT IS FULL CODE. CURRENT STATUS: PT SEEN AT BEDSIDE IN AM WITH PT'S GRANDDAUGHTER AT BEDSIDE. PT ALERT, COOPERATIVE, FOLLOWS DIRECTIONS, SEEMS [id number]. PT WITH NC(1L). PER PT AND PT'S GRANDDAUGHTER, PT DISLIKES THICKENED LIQUIDS AND WOULD NOT DRINK THE LIQUIDS. 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 MILD INCREASED ORAL TRANSIT TIME AND OROPHARYNGEAL TRANSIT TIME, FAIR LARYNGEAL ELEVATION, NO OVERT S/S OF ASPIRATION. DUE TO PT HAS H/O DEMENTIA, PT HAS RISK FOR (SILENT) ASPIRATION. RECOMMENDATIONS: 1. FOR QUALITY OF LIFE, CONTINUE ORAL DIET. DUE TO PT DISLIKES THICKENED LIQUIDS, CHANGED DIET TO MOIST PUREE WITH THIN LIQUIDS. 2. STRICT ASPIRATION PRECAUTIONS WITH 1TO1 SUPERVISION 3. VIDEOSWALLOW STUDY IF NEEDED IP OR OP D/W PT AND GRANDDAUGHTER. POSTED ASPIRATION PRECAUTIONS SIGN.
[2018-11-18 12:00] VITALS: BP 118/62
[2018-11-18] MEDS: cefTRIAXone 1 GM in D5W 50 ML IVPB SCH (14:01)
--- NOTE | 2018-11-18 14:22 | NUR ---
NURSE NOTES: left a message to dr cevallos regarding patients Na level of 134. awaits new order.
--- NOTE | 2018-11-18 15:07 | Internal Med Progress Note ---
Subjective Date of Service: Nov 18, 2018 Physician Name Jase De La Torre Attending Physician Vincenzo Abebe MD Current Medications Medications (Trade) Dose Ordered Sig/Abiel Route PRN Reason Start Time Stop Time Status Last Admin Dose Admin Acetaminophen (Tylenol) 325 mg Q4H PRN ORAL Mild Pain (Pain Scale 1-3) 11/15/18 01:00 12/15/18 00:59 Aspirin (ASA) 81 mg DAILY ORAL 11/15/18 09:00 12/15/18 08:59 11/18/18 08:38 Ceftriaxone Sodium 1 gm/ Dextrose 50 ml @ 100 mls/hr Q24H IVPB 11/15/18 14:00 11/22/18 13:59 11/18/18 14:01 Clonidine HCl (Catapres Tab) 0.1 mg Q6H PRN ORAL For High Blood Pressure 11/15/18 01:00 12/15/18 00:59 Docusate Sodium (Colace) 100 mg DAILY ORAL 11/18/18 09:00 12/18/18 08:59 11/18/18 08:38 Escitalopram Oxalate (Lexapro) 10 mg DAILY ORAL 11/15/18 09:00 12/15/18 08:59 11/18/18 08:38 Guaifenesin/ Dextromethorphan (Robitussin DM Syrup) 10 ml Q4H PRN ORAL For Cough 11/15/18 06:30 12/15/18 06:29 Heparin Sodium (Porcine) (Heparin 5000 units/ml) 5,000 units EVERY 8 HOURS SUBQ 11/15/18 06:00 12/15/18 05:59 11/18/18 14:03 Lorazepam (Ativan 2mg/ml 1ml) 0.5 mg Q6H PRN IV Agitation 11/16/18 08:00 11/23/18 07:59 Multivitamins Therapeutic (Therapeutic Multivitamin) 1 ea DAILY ORAL 11/15/18 09:00 12/15/18 08:59 11/18/18 08:38 Regadenoson (Lexiscan) 0.4 mg ONCE PRN IV stress test 11/17/18 09:00 11/18/18 18:00 Allergies: Coded Allergies: No Known Allergies (Unverified , 11/14/18) ROS Limited/Unobtainable: No Constitutional: Reports: no symptoms HEENT: Reports: no symptoms Cardiovascular: Reports: no symptoms Respiratory: Reports: no symptoms Gastrointestinal/Abdominal: Reports: nausea Genitourinary: Reports: no symptoms Neurologic/Psychiatric: Reports: no symptoms Subjective 88 YO F admitted with chest pain. Cover for Int Dougie-Dr Abebe. Objective Last Vital Signs Date Time Temp Pulse Resp B/P (MAP) Pulse Ox O2 Delivery O2 Flow Rate FiO2 11/18/18 12:00 96.5 62 18 118/62 (80) 91 11/18/18 08:55 Room Air Laboratory Tests Test 11/18/18 07:05 White Blood Count 6.4 K/UL (4.8-10.8) Red Blood Count 4.27 M/UL (4.20-5.40) Hemoglobin 12.7 G/DL (12.0-16.0) Hematocrit 39.1 % (37.0-47.0) Mean Corpuscular Volume 91 FL (80-99) Mean Corpuscular Hemoglobin 29.8 PG (27.0-31.0) Mean Corpuscular Hemoglobin Concent 32.6 G/DL (32.0-36.0) Red Cell Distribution Width 12.8 % (11.6-14.8) Platelet Count 217 K/UL (150-450) Mean Platelet Volume 6.3 FL (6.5-10.1) L Neutrophils (%) (Auto) 67.5 % (45.0-75.0) Lymphocytes (%) (Auto) 13.7 % (20.0-45.0) L Monocytes (%) (Auto) 9.9 % (1.0-10.0) Eosinophils (%) (Auto) 7.5 % (0.0-3.0) H Basophils (%) (Auto) 1.4 % (0.0-2.0) Sodium Level 134 MMOL/L (136-145) L Potassium Level 4.0 MMOL/L (3.5-5.1) Chloride Level 99 MMOL/L (98-107) Carbon Dioxide Level 28 MMOL/L (21-32) Anion Gap 7 mmol/L (5-15) Blood Urea Nitrogen 9 mg/dL (7-18) Creatinine 0.6 MG/DL (0.55-1.30) Estimat Glomerular Filtration Rate mL/min (>60) Glucose Level 96 MG/DL (74-106) Calcium Level 9.6 MG/DL (8.5-10.1) Intake and Output 11/17/18 11/18/18 19:00 07:00 Intake Total 120 ml 50 ml Balance 120 ml 50 ml Intake Oral 120 ml 50 ml # Voids 2 Objective PHYSICAL EXAMINATION: GENERAL: The patient is awake and responsive, in no acute distress, forgetful, and chronic ill-looking. HEAD AND NECK: Pupils are equal and reactive to light. Extraocular movements intact. Neck was supple. No JVD. Mouth has poor dentition. Neck was supple. No JVD. LUNGS: Good air entry. No wheezes or rales. Decreased air in the bases. HEART: S1, S2. Distant heart sounds. No murmurs, gallops, or rubs appreciated. ABDOMEN: Soft, nondistended, and nontender. Positive bowel sounds. EXTREMITIES: No cyanosis, clubbing, or edema. NEUROLOGIC: Cranial nerves II through XII grossly intact. The patient is moving all the extremities spontaneously. Gait was not assessed due to the patient's status. RECTAL: Refused and deferred. GENITOURINARY: Refused and deferred. PSYCHIATRIC: Mood and affect is intact. Assessment/Plan Assessment/Plan ASSESSMENT: 1. Atypical Chest pain 2. Paroxysmal atrial fibrillation. 3. Hypertension. 4. History of advanced dementia. 5. Hyponatremia. 6. Urinary tract infection. 7. Nausea PLAN: 1. Transfer to Med/surg 2. We will follow up with Dr. Rodrigues from Cardiology and Dr. Britton from Nephrology. 3. Broad spectrum antibiotic with Rocephin. 4. Monitor serial cardiac enzymes. 5. Code status, Full Code at this time. 6. DVT prophylaxis, heparin subcutaneous. 7. UTI=E. Coli-continue ceftriaxone Jase De La Torre MD Nov 18, 2018 15:07
[2018-11-18 16:00] VITALS: BP 145/89
--- NOTE | 2018-11-18 16:42 | NUR ---
NURSE NOTES: dr cevallos acknowledged the report for Na level 134.no new orders received.
--- NOTE | 2018-11-18 19:10 | NUR ---
NURSE NOTES: Received pt. and report from GREGG Muñoz. Observe pt. asleep in bed. IV site intact, asymptomatic, and patent. Bed is in the lowest position and locked. Call light within reach. No acute distress noted at this time. Pt. has order to be transfer to Med Surg. Awaiting room assignment. conveyor monitor removed. Will continue plan of care until transfer.
--- NOTE | 2018-11-18 19:18 | NUR ---
HAND-OFF: Report given to lucrecia dupont.
[2018-11-18 20:00] VITALS: BP 153/88
--- NOTE | 2018-11-18 22:05 | NUR ---
TRANSFER TO FLOOR: Patient transferred to [facility], room [address] De La Torre's order. Pt. transferred to floor without incident. Report given to LUCILA Ramires. Belongings list checked and orders transferred. Called granddaughter, Aleena, and left a voicemail regarding transferred. Plan of care endorsed.
--- NOTE | 2018-11-18 22:10 | NUR ---
NURSE NOTES:Patient received from MY Jessica Patient in bed awake, alert and oriented x3. patient denies any pain . no sob/no n/v noted . patient incontinent of urine . kept clean and dry at all times . RFA g#22 H/L patent and intact . call light within reach . bed in low position at all times . will continue to monitor patient . Addendum: 11/19/18 at 0018 by JAMES OLEARY LVN Patient skin is intact . no personal belongings .Elvie Chen (granddaughter) notified and aware patient location 303 bed 1. Addendum: 11/20/18 at 1831 by JAMES OLEARY LVN Patient from [address] [place], [place] [address]etry room 202 bed1 to 303 bed 1
[2018-11-19] VITALS (7 sets, daily range): BP systolic 126–153; BP diastolic 68–77
--- NOTE | 2018-11-19 01:20 | Consultation ---
History of Present Illness General Chief Complaint: Chest Pain Present Illness HPI 88-year-old female with past medical history of advanced dementia, and degenerative joint disease of the spine, knees, paroxysmal atrial fibrillation, hypertension, COPD, , who presented to the hospital from a snf [facility] for chest pain. the pt is well known to me from . the pt has been anxious and depressed. the pt has been withdrawn the pt is unable to provide hx. Allergies: Coded Allergies: No Known Allergies (Unverified , 11/14/18) Medication History Scheduled Aspirin* (Aspirin*), 81 MG ORAL DAILY, (Reported) Clonidine Hcl* (Catapres*), 0.1 MG ORAL EVERY 6 HOURS, (Reported) Cranberry Fruit Concentrate (Cranberry), 450 MG PO BID, (Reported) Docusate Sodium* (Colace*), 100 MG ORAL DAILY, (Reported) Escitalopram Oxalate* (Lexapro*), 10 MG ORAL DAILY, (Reported) Multivitamin With Minerals (Multivitamins With Minerals*), 1 TAB ORAL DAILY, ( Reported) Scheduled PRN Acetaminophen* (Acetaminophen 325MG Tablet*), 325 MG ORAL Q4H PRN for Mild Pain (Pain Scale 1-3), (Reported) Dextromethorphan Hb/Doxylamine (Robitussin Nighttime Cough Dm), 10 ML PO EVERY 4 HOURS PRN for For Cough, (Reported) Patient History Limited by: medical condition History Provided By: Patient, Medical Record, PMD Healthcare decision maker Resuscitation status Full Code Advanced Directive on File Past Medical/Surgical History Past Medical/Surgical History: (1) ACS (acute coronary syndrome) (2) Dementia (3) Protein calorie malnutrition (4) UTI (urinary tract infection) (5) Chest pain Review of Systems Psychiatric: Reports: prior hx, anxiety, depressed feelings, emotional problems Physical Exam General Appearance: alert, confused Neurologic: depressed affect Last 24 Hour Vital Signs Date Time Temp Pulse Resp B/P (MAP) Pulse Ox O2 Delivery O2 Flow Rate FiO2 11/19/18 00:00 97.4 78 20 126/70 (88) 97 11/18/18 22:00 Room Air 11/18/18 21:00 Room Air 11/18/18 20:00 97.7 68 18 153/88 (109) 94 11/18/18 16:00 63 11/18/18 16:00 96.3 72 18 145/89 (107) 98 11/18/18 12:00 96.5 62 18 118/62 (80) 91 11/18/18 12:00 56 11/18/18 08:55 Room Air 11/18/18 08:00 96.3 64 18 120/59 (79) 92 11/18/18 07:23 89 11/18/18 04:00 97.9 69 20 155/62 (93) 96 11/18/18 04:00 65 Intake and Output 11/18/18 11/19/18 19:00 07:00 Intake Total 730 ml 240 ml Output Total 800 ml 200 ml Balance -70 ml 40 ml Intake Oral 630 ml 240 ml IV Total 100 ml Output Urine Total 800 ml 200 ml # Voids 1 2 Laboratory Tests Test 11/18/18 07:05 White Blood Count 6.4 K/UL (4.8-10.8) Red Blood Count 4.27 M/UL (4.20-5.40) Hemoglobin 12.7 G/DL (12.0-16.0) Hematocrit 39.1 % (37.0-47.0) Mean Corpuscular Volume 91 FL (80-99) Mean Corpuscular Hemoglobin 29.8 PG (27.0-31.0) Mean Corpuscular Hemoglobin Concent 32.6 G/DL (32.0-36.0) Red Cell Distribution Width 12.8 % (11.6-14.8) Platelet Count 217 K/UL (150-450) Mean Platelet Volume 6.3 FL (6.5-10.1) L Neutrophils (%) (Auto) 67.5 % (45.0-75.0) Lymphocytes (%) (Auto) 13.7 % (20.0-45.0) L Monocytes (%) (Auto) 9.9 % (1.0-10.0) Eosinophils (%) (Auto) 7.5 % (0.0-3.0) H Basophils (%) (Auto) 1.4 % (0.0-2.0) Sodium Level 134 MMOL/L (136-145) L Potassium Level 4.0 MMOL/L (3.5-5.1) Chloride Level 99 MMOL/L (98-107) Carbon Dioxide Level 28 MMOL/L (21-32) Anion Gap 7 mmol/L (5-15) Blood Urea Nitrogen 9 mg/dL (7-18) Creatinine 0.6 MG/DL (0.55-1.30) Estimat Glomerular Filtration Rate mL/min (>60) Glucose Level 96 MG/DL (74-106) Calcium Level 9.6 MG/DL (8.5-10.1) Height (Feet): 5 Height (Inches): 8.00 Weight (Pounds): 134 Medications Current Medications Medications (Trade) Dose Ordered Sig/Abiel Route PRN Reason Start Time Stop Time Status Last Admin Dose Admin Acetaminophen (Tylenol) 325 mg Q4H PRN ORAL Mild Pain (Pain Scale 1-3) 11/19/18 01:00 12/15/18 00:59 Aspirin (ASA) 81 mg DAILY ORAL 11/19/18 09:00 12/15/18 08:59 Ceftriaxone Sodium 1 gm/ Dextrose 50 ml @ 100 mls/hr Q24H IVPB 11/19/18 14:00 11/22/18 13:59 Clonidine HCl (Catapres Tab) 0.1 mg Q6H PRN ORAL For High Blood Pressure 11/19/18 01:00 12/15/18 00:59 Docusate Sodium (Colace) 100 mg DAILY ORAL 11/19/18 09:00 12/18/18 08:59 Escitalopram Oxalate (Lexapro) 10 mg DAILY ORAL 11/19/18 09:00 12/15/18 08:59 Guaifenesin/ Dextromethorphan (Robitussin DM Syrup) 10 ml Q4H PRN ORAL For Cough 11/19/18 02:30 12/15/18 06:29 Heparin Sodium (Porcine) (Heparin 5000 units/ml) 5,000 units EVERY 8 HOURS SUBQ 11/18/18 22:45 12/15/18 05:59 Lorazepam (Ativan 2mg/ml 1ml) 0.5 mg Q6H PRN IV Agitation 11/19/18 02:00 11/23/18 07:59 Multivitamins Therapeutic (Therapeutic Multivitamin) 1 ea DAILY ORAL 11/19/18 09:00 12/15/18 08:59 Assessment/Plan Problem List: (1) MDD (major depressive disorder) ICD Codes: F32.9 - Major depressive disorder, single episode, unspecified SNOMED: 242633029 (2) Dementia with behavioral disturbance ICD Codes: F03.91 - Unspecified dementia with behavioral disturbance SNOMED: 4076648371603 (3) Dementia ICD Codes: F03.90 - Unspecified dementia without behavioral disturbance SNOMED: 73291450 Qualifiers: Qualified Codes: F03.90 - Unspecified dementia without behavioral disturbance Assessment/Plan lexapro 10mg qam Gus Soto MD Nov 19, 2018 01:19
[2018-11-19] MEDS ORDERED: LORazepam Inj 2mg/ml 1ml IV PRN (02:00)
[2018-11-19] MEDS ORDERED: Guaifenesin/DM 10ml syrup ORAL PRN (02:30)
[2018-11-19] MEDS: Heparin 5000 units/ml inj SUBQ SCH ×3 (06:00→23:43)
--- NOTE | 2018-11-19 07:40 | NUR ---
NURSE NOTES: WALKING ROUNDS DONE WITH OUTGOING RN. PATIENT AWAKE IN BED.QUESTIONS ANSWERED; NEEDS MET. ATE BREAKFAST WITH RESTAURANT SERVER ASSISTANCE. TOLERATED WELL. DISCUSSED PLAN OF CARE FOR THE ACKNOWLEDGED UNDERSTANDING. CALL LIGHT WITHIN REACH. WILL CONTINUE TO MONITOR.
--- NOTE | 2018-11-19 07:40 | NUR ---
HAND-OFF: Report given to kimberli Lopez
[2018-11-19 07:52] LABS: EOSINOPHILS % (AUTO) 6.9 % (0.0-3.0); HEMOGLOBIN 12.5 G/DL (12.0-16.0); LYMPHOCYTES % (AUTO) 11.8 % (20.0-45.0); MEAN CORPUSCULAR VOLUME 91 FL (80-99); MONOCYTES % (AUTO) 14.4 % (1.0-10.0); NEUTROPHILS % (AUTO) 64.8 % (45.0-75.0); PLATELET COUNT 189 K/UL (150-450); RED BLOOD COUNT 4.27 M/UL (4.20-5.40); RED CELL DISTRIBUTION WIDTH 12.7 % (11.6-14.8); WHITE BLOOD COUNT 6.8 K/UL (4.8-10.8)
[2018-11-19 08:01] LABS: ANION GAP 4 mmol/L (5-15); BLOOD UREA NITROGEN 7 mg/dL (7-18); CALCIUM 9.5 MG/DL (8.5-10.1); CARBON DIOXIDE 30 MMOL/L (21-32); CHLORIDE 97 MMOL/L (98-107); CREATININE 0.7 MG/DL (0.55-1.30); POTASSIUM 4.7 MMOL/L (3.5-5.1); SODIUM 131 MMOL/L (136-145)
[2018-11-19] MEDS: Docusate 100mg/10ml Liq ORAL SCH (09:28)
[2018-11-19] MEDS: Multivitamin w/Minerals tab ORAL SCH (09:29)
[2018-11-19] MEDS: Aspirin Baby 81mg ORAL SCH (09:29)
--- NOTE | 2018-11-19 14:05 | Internal Med Progress Note ---
Subjective Date of Service: Nov 19, 2018 Physician Name Jase De La Torre Attending Physician Vincenzo Abebe MD Current Medications Medications (Trade) Dose Ordered Sig/Abiel Route PRN Reason Start Time Stop Time Status Last Admin Dose Admin Acetaminophen (Tylenol) 325 mg Q4H PRN ORAL Mild Pain (Pain Scale 1-3) 11/19/18 01:00 12/15/18 00:59 Aspirin (ASA) 81 mg DAILY ORAL 11/19/18 09:00 12/15/18 08:59 11/19/18 09:29 Ceftriaxone Sodium 1 gm/ Dextrose 50 ml @ 100 mls/hr Q24H IVPB 11/19/18 14:00 11/22/18 13:59 Clonidine HCl (Catapres Tab) 0.1 mg Q6H PRN ORAL For High Blood Pressure 11/19/18 01:00 12/15/18 00:59 Docusate Sodium (Colace) 100 mg DAILY ORAL 11/19/18 09:00 12/18/18 08:59 11/19/18 09:28 Escitalopram Oxalate (Lexapro) 10 mg DAILY ORAL 11/19/18 09:00 12/15/18 08:59 11/19/18 09:29 Guaifenesin/ Dextromethorphan (Robitussin DM Syrup) 10 ml Q4H PRN ORAL For Cough 11/19/18 02:30 12/15/18 06:29 11/19/18 03:20 Heparin Sodium (Porcine) (Heparin 5000 units/ml) 5,000 units EVERY 8 HOURS SUBQ 11/18/18 22:45 12/15/18 05:59 Lorazepam (Ativan 2mg/ml 1ml) 0.5 mg Q6H PRN IV Agitation 11/19/18 02:00 11/23/18 07:59 Multivitamins Therapeutic (Therapeutic Multivitamin) 1 ea DAILY ORAL 11/19/18 09:00 12/15/18 08:59 11/19/18 09:29 Allergies: Coded Allergies: No Known Allergies (Unverified , 11/14/18) ROS Limited/Unobtainable: No Constitutional: Reports: no symptoms HEENT: Reports: no symptoms Cardiovascular: Reports: no symptoms Respiratory: Reports: no symptoms Gastrointestinal/Abdominal: Reports: no symptoms Genitourinary: Reports: no symptoms Neurologic/Psychiatric: Reports: no symptoms Subjective 88 YO F admitted with chest pain. Cover for Int Dougie-Dr Abebe. Objective Last Vital Signs Date Time Temp Pulse Resp B/P (MAP) Pulse Ox O2 Delivery O2 Flow Rate FiO2 11/19/18 11:51 97.7 64 20 135/72 (93) 98 11/19/18 09:00 Room Air Laboratory Tests Test 11/19/18 07:25 White Blood Count 6.8 K/UL (4.8-10.8) Red Blood Count 4.27 M/UL (4.20-5.40) Hemoglobin 12.5 G/DL (12.0-16.0) Hematocrit 39.0 % (37.0-47.0) Mean Corpuscular Volume 91 FL (80-99) Mean Corpuscular Hemoglobin 29.4 PG (27.0-31.0) Mean Corpuscular Hemoglobin Concent 32.2 G/DL (32.0-36.0) Red Cell Distribution Width 12.7 % (11.6-14.8) Platelet Count 189 K/UL (150-450) Mean Platelet Volume 6.5 FL (6.5-10.1) Neutrophils (%) (Auto) 64.8 % (45.0-75.0) Lymphocytes (%) (Auto) 11.8 % (20.0-45.0) L Monocytes (%) (Auto) 14.4 % (1.0-10.0) H Eosinophils (%) (Auto) 6.9 % (0.0-3.0) H Basophils (%) (Auto) 2.0 % (0.0-2.0) Sodium Level 131 MMOL/L (136-145) L Potassium Level 4.7 MMOL/L (3.5-5.1) Chloride Level 97 MMOL/L (98-107) L Carbon Dioxide Level 30 MMOL/L (21-32) Anion Gap 4 mmol/L (5-15) L Blood Urea Nitrogen 7 mg/dL (7-18) Creatinine 0.7 MG/DL (0.55-1.30) Estimat Glomerular Filtration Rate mL/min (>60) Glucose Level 94 MG/DL (74-106) Calcium Level 9.5 MG/DL (8.5-10.1) Intake and Output 11/18/18 11/19/18 18:59 06:59 Intake Total 730 ml 720 ml Output Total 800 ml 400 ml Balance -70 ml 320 ml Intake Oral 630 ml 720 ml IV Total 100 ml Output Urine Total 800 ml 400 ml # Voids 1 5 Objective PHYSICAL EXAMINATION: GENERAL: The patient is awake and responsive, in no acute distress, forgetful, and chronic ill-looking. HEAD AND NECK: Pupils are equal and reactive to light. Extraocular movements intact. Neck was supple. No JVD. Mouth has poor dentition. Neck was supple. No JVD. LUNGS: Good air entry. No wheezes or rales. Decreased air in the bases. HEART: S1, S2. Distant heart sounds. No murmurs, gallops, or rubs appreciated. ABDOMEN: Soft, nondistended, and nontender. Positive bowel sounds. EXTREMITIES: No cyanosis, clubbing, or edema. NEUROLOGIC: Cranial nerves II through XII grossly intact. The patient is moving all the extremities spontaneously. Gait was not assessed due to the patient's status. RECTAL: Refused and deferred. GENITOURINARY: Refused and deferred. PSYCHIATRIC: Mood and affect is intact. Assessment/Plan Assessment/Plan ASSESSMENT: 1. Atypical Chest pain 2. Paroxysmal atrial fibrillation. 3. Hypertension. 4. History of advanced dementia. 5. Hyponatremia. 6. Urinary tract infection. 7. Nausea PLAN: 1. Transfer to Med/surg 2. We will follow up with Dr. Rodrigues from Cardiology and Dr. Britton from Nephrology. 3. Broad spectrum antibiotic with Rocephin. 4. Monitor serial cardiac enzymes. 5. Code status, Full Code at this time. 6. DVT prophylaxis, heparin subcutaneous. 7. UTI=E. Coli-continue ceftriaxone 8. Discharge planning Jase De La Torre MD Nov 19, 2018 14:05
[2018-11-19] MEDS: cefTRIAXone 1 GM in D5W 50 ML IVPB SCH (14:26)
--- NOTE | 2018-11-19 15:47 | Cardiac Electrophysiology PN ---
Assessment/Plan Assessment/Plan 1. Chest pain. The pain is atypical. Ruled out for myocardial infarction. Currently, she does not have any chest pain. Echo EF 60%. On aspirin 81 mg daily.Family refused Stress test 2. Hypertension. 3. Dementia. 4. Questionable history of atrial fibrillation, currently remain in sinus rhythm. DW RN DC planning to SNIF tomorrow Subjective Subjective Comfortable in NAD. Pleasantly confused.Family refused stress test. Objective Last 24 Hour Vital Signs Date Time Temp Pulse Resp B/P (MAP) Pulse Ox O2 Delivery O2 Flow Rate FiO2 11/19/18 11:51 97.7 64 20 135/72 (93) 98 11/19/18 09:00 Room Air 11/19/18 08:00 97.1 68 20 135/73 (93) 100 11/19/18 04:00 97.8 72 20 130/77 (94) 98 11/19/18 00:02 97.4 78 20 126/70 (88) 97 11/18/18 22:00 Room Air 11/18/18 21:00 Room Air 11/18/18 20:00 97.7 68 18 153/88 (109) 94 11/18/18 16:00 63 11/18/18 16:00 96.3 72 18 145/89 (107) 98 Intake and Output 11/18/18 11/19/18 19:00 07:00 Intake Total 730 ml 720 ml Output Total 800 ml 400 ml Balance -70 ml 320 ml Intake Oral 630 ml 720 ml IV Total 100 ml Output Urine Total 800 ml 400 ml # Voids 1 5 Laboratory Tests Test 11/19/18 07:25 White Blood Count 6.8 K/UL (4.8-10.8) Red Blood Count 4.27 M/UL (4.20-5.40) Hemoglobin 12.5 G/DL (12.0-16.0) Hematocrit 39.0 % (37.0-47.0) Mean Corpuscular Volume 91 FL (80-99) Mean Corpuscular Hemoglobin 29.4 PG (27.0-31.0) Mean Corpuscular Hemoglobin Concent 32.2 G/DL (32.0-36.0) Red Cell Distribution Width 12.7 % (11.6-14.8) Platelet Count 189 K/UL (150-450) Mean Platelet Volume 6.5 FL (6.5-10.1) Neutrophils (%) (Auto) 64.8 % (45.0-75.0) Lymphocytes (%) (Auto) 11.8 % (20.0-45.0) L Monocytes (%) (Auto) 14.4 % (1.0-10.0) H Eosinophils (%) (Auto) 6.9 % (0.0-3.0) H Basophils (%) (Auto) 2.0 % (0.0-2.0) Sodium Level 131 MMOL/L (136-145) L Potassium Level 4.7 MMOL/L (3.5-5.1) Chloride Level 97 MMOL/L (98-107) L Carbon Dioxide Level 30 MMOL/L (21-32) Anion Gap 4 mmol/L (5-15) L Blood Urea Nitrogen 7 mg/dL (7-18) Creatinine 0.7 MG/DL (0.55-1.30) Estimat Glomerular Filtration Rate mL/min (>60) Glucose Level 94 MG/DL (74-106) Calcium Level 9.5 MG/DL (8.5-10.1) Objective HEAD AND NECK: No JVD or carotid bruits. LUNGS: Clear. CARDIOVASCULAR: Regular S1 and S2 with no gallop or murmur. ABDOMEN: Soft. EXTREMITIES: No pitting edema. Buzz Rodrigues MD Nov 19, 2018 15:47
[2018-11-19] MEDS ORDERED: Tubing IV Secondary IV ONE (17:44)
[2018-11-19] MEDS ORDERED: NS 275ml ONE (17:45)
--- NOTE | 2018-11-19 19:12 | NUR ---
NURSE NOTES: PATIENT REMAINS STABLE. APPETITE VERY GOOD.TURN SCHEDULE IN PROGRESS. SEEN BY DR. GILMAN. PER MD, PATIENT WILL BE DC'D TO SNF TOMORROW PLANNED.
--- NOTE | 2018-11-19 19:40 | NUR ---
HAND-OFF: Report given to NAA ODOM RN.
[2018-11-20] VITALS: BP 136/73
[2018-11-20 04:00] VITALS: BP 109/65
--- NOTE | 2018-11-20 06:00 | NUR ---
pt refused take weight
[2018-11-20] MEDS: Heparin 5000 units/ml inj SUBQ SCH ×2 (06:29→14:56)
--- NOTE | 2018-11-20 07:30 | NUR ---
HAND OFF TO GABRIELE ESCOBEDO
--- NOTE | 2018-11-20 07:30 | NUR ---
NURSE NOTES: Patient is in bed and awake. Patient denies pain at this time. Patient is stable with no s/s acute distress. Patient is in bed in locked and lowest position and call light within reach. All safety measures provided. Will continue to monitor.
[2018-11-20 08:00] VITALS: BP 129/60
[2018-11-20] MEDS: Docusate 100mg/10ml Liq ORAL SCH (08:35)
[2018-11-20] MEDS: Aspirin Baby 81mg ORAL SCH (08:36)
[2018-11-20] MEDS: Multivitamin w/Minerals tab ORAL SCH (08:36)
[2018-11-20 09:19] LABS: BASOPHILS % (AUTO) 2.4 % (0.0-2.0); EOSINOPHILS % (AUTO) 7.8 % (0.0-3.0); HEMATOCRIT 38.7 % (37.0-47.0); HEMOGLOBIN 12.5 G/DL (12.0-16.0); LYMPHOCYTES % (AUTO) 21.5 % (20.0-45.0); MEAN CORPUSCULAR VOLUME 92 FL (80-99); MONOCYTES % (AUTO) 15.8 % (1.0-10.0); NEUTROPHILS % (AUTO) 52.6 % (45.0-75.0); PLATELET COUNT 177 K/UL (150-450); RED BLOOD COUNT 4.22 M/UL (4.20-5.40); RED CELL DISTRIBUTION WIDTH 12.9 % (11.6-14.8); WHITE BLOOD COUNT 5.7 K/UL (4.8-10.8)
[2018-11-20 09:32] LABS: ANION GAP 6 mmol/L (5-15); BLOOD UREA NITROGEN 5 mg/dL (7-18); CALCIUM 9.4 MG/DL (8.5-10.1); CARBON DIOXIDE 30 MMOL/L (21-32); CHLORIDE 94 MMOL/L (98-107); CREATININE 0.7 MG/DL (0.55-1.30); POTASSIUM 4.1 MMOL/L (3.5-5.1); SODIUM 130 MMOL/L (136-145)
[2018-11-20 12:00] VITALS: BP 126/64
--- NOTE | 2018-11-20 12:49 | General Progress Note ---
Assessment/Plan Problem List: (1) MDD (major depressive disorder) ICD Codes: F32.9 - Major depressive disorder, single episode, unspecified SNOMED: 137883160 (2) Dementia with behavioral disturbance ICD Codes: F03.91 - Unspecified dementia with behavioral disturbance SNOMED: 0042894621442 (3) Dementia ICD Codes: F03.90 - Unspecified dementia without behavioral disturbance SNOMED: 17916713 Qualifiers: Qualified Codes: F03.90 - Unspecified dementia without behavioral disturbance Assessment/Plan lexapro 10mg qam ativan prn Subjective Neurologic/Psychiatric: Reports: anxiety, depressed Allergies: Coded Allergies: No Known Allergies (Unverified , 11/14/18) Subjective the pt is the same episodes of agitation Objective Last 24 Hour Vital Signs Date Time Temp Pulse Resp B/P (MAP) Pulse Ox O2 Delivery O2 Flow Rate FiO2 11/20/18 12:00 97.7 59 18 126/64 (84) 96 11/20/18 09:00 Room Air 11/20/18 08:00 97.8 60 18 129/60 (83) 96 11/20/18 04:00 97.6 66 20 109/65 (80) 96 11/20/18 00:00 97.5 71 20 136/73 (94) 98 11/19/18 21:00 Room Air 11/19/18 20:00 97.1 64 20 153/68 (96) 97 11/19/18 16:00 97.6 63 20 144/76 (98) 99 Intake and Output 11/19/18 11/20/18 18:59 06:59 Intake Total 650 ml 100 ml Output Total 200 ml 700 ml Balance 450 ml -600 ml Intake Oral 600 ml 100 ml IV Total 50 ml Output Urine Total 200 ml 700 ml # Voids 2 Laboratory Tests 11/20/18 08:55: White Blood Count 5.7, Red Blood Count 4.22, Hemoglobin 12.5, Hematocrit 38.7, Mean Corpuscular Volume 92, Mean Corpuscular Hemoglobin 29.7, Mean Corpuscular Hemoglobin Concent 32.4, Red Cell Distribution Width 12.9, Platelet Count 177, Mean Platelet Volume 6.6, Neutrophils (%) (Auto) 52.6, Lymphocytes (%) (Auto) 21.5, Monocytes (%) (Auto) 15.8H, Eosinophils (%) (Auto) 7.8H, Basophils (%) ( Auto) 2.4H, Sodium Level 130L, Potassium Level 4.1, Chloride Level 94L, Carbon Dioxide Level 30, Anion Gap 6, Blood Urea Nitrogen 5L, Creatinine 0.7, Estimat Glomerular Filtration Rate , Glucose Level 98, Calcium Level 9.4 Height (Feet): 5 Height (Inches): 8.00 Weight (Pounds): 134 General Appearance: alert, confused Gus Randle MD Nov 20, 2018 12:49
--- NOTE | 2018-11-20 13:13 | Cardiac Electrophysiology PN ---
Assessment/Plan Assessment/Plan 1. Atypical Chest pain. Ruled out for myocardial infarction. Currently, she does not have any chest pain. Echo EF 60%. On aspirin 81 mg daily.Family refused Stress test 2. Hypertension. 3. Dementia. 4. Questionable history of atrial fibrillation, currently remain in sinus rhythm. SHERRY RN DC planning to SNIF today Subjective Subjective Comfortable in NAD. Pleasantly confused. Objective Last 24 Hour Vital Signs Date Time Temp Pulse Resp B/P (MAP) Pulse Ox O2 Delivery O2 Flow Rate FiO2 11/20/18 12:00 97.7 59 18 126/64 (84) 96 11/20/18 09:00 Room Air 11/20/18 08:00 97.8 60 18 129/60 (83) 96 11/20/18 04:00 97.6 66 20 109/65 (80) 96 11/20/18 00:00 97.5 71 20 136/73 (94) 98 11/19/18 21:00 Room Air 11/19/18 20:00 97.1 64 20 153/68 (96) 97 11/19/18 16:00 97.6 63 20 144/76 (98) 99 Intake and Output 11/19/18 11/20/18 18:59 06:59 Intake Total 650 ml 100 ml Output Total 200 ml 700 ml Balance 450 ml -600 ml Intake Oral 600 ml 100 ml IV Total 50 ml Output Urine Total 200 ml 700 ml # Voids 2 Laboratory Tests Test 11/20/18 08:55 White Blood Count 5.7 K/UL (4.8-10.8) Red Blood Count 4.22 M/UL (4.20-5.40) Hemoglobin 12.5 G/DL (12.0-16.0) Hematocrit 38.7 % (37.0-47.0) Mean Corpuscular Volume 92 FL (80-99) Mean Corpuscular Hemoglobin 29.7 PG (27.0-31.0) Mean Corpuscular Hemoglobin Concent 32.4 G/DL (32.0-36.0) Red Cell Distribution Width 12.9 % (11.6-14.8) Platelet Count 177 K/UL (150-450) Mean Platelet Volume 6.6 FL (6.5-10.1) Neutrophils (%) (Auto) 52.6 % (45.0-75.0) Lymphocytes (%) (Auto) 21.5 % (20.0-45.0) Monocytes (%) (Auto) 15.8 % (1.0-10.0) H Eosinophils (%) (Auto) 7.8 % (0.0-3.0) H Basophils (%) (Auto) 2.4 % (0.0-2.0) H Sodium Level 130 MMOL/L (136-145) L Potassium Level 4.1 MMOL/L (3.5-5.1) Chloride Level 94 MMOL/L (98-107) L Carbon Dioxide Level 30 MMOL/L (21-32) Anion Gap 6 mmol/L (5-15) Blood Urea Nitrogen 5 mg/dL (7-18) L Creatinine 0.7 MG/DL (0.55-1.30) Estimat Glomerular Filtration Rate mL/min (>60) Glucose Level 98 MG/DL (74-106) Calcium Level 9.4 MG/DL (8.5-10.1) Objective HEAD AND NECK: No JVD . LUNGS: Clear. CARDIOVASCULAR: Regular S1 and S2 with no gallop or murmur. ABDOMEN: Soft. EXTREMITIES: No pitting edema. Buzz Rodrigues MD Nov 20, 2018 13:13
[2018-11-20] MEDS: cefTRIAXone 1 GM in D5W 50 ML IVPB SCH (14:55)
[2018-11-20] MEDS ORDERED: ACETAMINOPHEN325 M1 ORAL (15:24)
[2018-11-20] MEDS ORDERED: CEFTRIAXON1 GM/50 ML IV (15:30)
[2018-11-20] MEDS ORDERED: CLONIDINE HCL0.1 MG PO (15:31)
[2018-11-20] MEDS ORDERED: LEXAPRO10 MG ORAL (15:32)
[2018-11-20] MEDS ORDERED: DOCUSATE SODIU100 M2 ORAL (15:32)
[2018-11-20] MEDS ORDERED: ADULT ROBITUSS118 ML ORAL (15:33)
[2018-11-20] MEDS ORDERED: HEPARIN SO5000 UNIT2 SUBQ (15:34)
[2018-11-20] MEDS ORDERED: MULTIVITAMINS1 EAC8 ORAL (15:35)
[2018-11-20] MEDS ORDERED: LORAZEPAM0.5 MG ORAL (15:35)
[2018-11-20] MEDS ORDERED: SODIUM CHLORIDE50 M1 IV (15:39)
[2018-11-20 16:00] VITALS: BP 122/73
--- NOTE | 2018-11-20 16:57 | NUR ---
CASE MANAGEMENT: REVIEW SI: ACS T 97.7 HR 59 RR 18 BP 126/64 SAT 96% ROOM AIR MONO 15.8 EOS 7.8 BASO 2.4 IS: NS IVF @50ML/HR CEFTRIAXONE IV Q24HR ASA PO QD MED/SURG STATUS DCP: PATIENT IS FROM [facility]
--- NOTE | 2018-11-20 17:00 | NUR ---
CASE MANAGEMENT: DCPNOTE UPON DISCHARGE PATIENT WILL TRANSFER BACK TO [facility] [phone] [facility] ROOM [address] PATIENT AND FAMILY CHARITY POLANCO [phone] IN AGREEMENT TO TRANSFER BACK TO THIS FACILITY TRANSPORTATION VIA [facility] [id number] ETA 18:00
--- NOTE | 2018-11-20 17:36 | NUR ---
NURSE NOTES: Patient to be transferred to [facility] per doctor's order. Gave report to Terry ESCOBEDO at [facility]. Will continue to monitor patient until transfer.
--- NOTE | 2018-11-20 17:49 | Internal Med Progress Note ---
Subjective Date of Service: Nov 20, 2018 Physician Name Jase De La Torre Attending Physician Vincenzo Abebe MD Current Medications Medications (Trade) Dose Ordered Sig/Abiel Route PRN Reason Start Time Stop Time Status Last Admin Dose Admin Acetaminophen (Tylenol) 325 mg Q4H PRN ORAL Mild Pain (Pain Scale 1-3) 11/19/18 01:00 12/15/18 00:59 Aspirin (ASA) 81 mg DAILY ORAL 11/19/18 09:00 12/15/18 08:59 11/20/18 08:36 Ceftriaxone Sodium 1 gm/ Dextrose 50 ml @ 100 mls/hr Q24H IVPB 11/19/18 14:00 11/22/18 13:59 11/20/18 14:55 Clonidine HCl (Catapres Tab) 0.1 mg Q6H PRN ORAL For High Blood Pressure 11/19/18 01:00 12/15/18 00:59 Docusate Sodium (Colace) 100 mg DAILY ORAL 11/19/18 09:00 12/18/18 08:59 11/20/18 08:35 Escitalopram Oxalate (Lexapro) 10 mg DAILY ORAL 11/19/18 09:00 12/15/18 08:59 11/20/18 08:36 Guaifenesin/ Dextromethorphan (Robitussin DM Syrup) 10 ml Q4H PRN ORAL For Cough 11/19/18 02:30 12/15/18 06:29 11/19/18 03:20 Heparin Sodium (Porcine) (Heparin 5000 units/ml) 5,000 units EVERY 8 HOURS SUBQ 11/18/18 22:45 12/15/18 05:59 11/20/18 14:56 Lorazepam (Ativan 2mg/ml 1ml) 0.5 mg Q6H PRN IV Agitation 11/19/18 02:00 11/23/18 07:59 Multivitamins Therapeutic (Therapeutic Multivitamin) 1 ea DAILY ORAL 11/19/18 09:00 12/15/18 08:59 11/20/18 08:36 Sodium Chloride 1,000 ml @ 50 mls/hr Q20H IV 11/20/18 11:00 12/20/18 10:59 11/20/18 11:25 Allergies: Coded Allergies: No Known Allergies (Unverified , 12/27/18) ROS Limited/Unobtainable: No Constitutional: Reports: no symptoms HEENT: Reports: no symptoms Cardiovascular: Reports: no symptoms Respiratory: Reports: no symptoms Gastrointestinal/Abdominal: Reports: no symptoms Genitourinary: Reports: no symptoms Neurologic/Psychiatric: Reports: no symptoms Subjective 88 YO F admitted with chest pain. Now UTI. Cover for Int Dougie-Dr Abebe. Objective Last Vital Signs Date Time Temp Pulse Resp B/P (MAP) Pulse Ox O2 Delivery O2 Flow Rate FiO2 11/20/18 16:00 97.9 66 19 122/73 (89) 98 11/20/18 09:00 Room Air Laboratory Tests Test 11/20/18 08:55 White Blood Count 5.7 K/UL (4.8-10.8) Red Blood Count 4.22 M/UL (4.20-5.40) Hemoglobin 12.5 G/DL (12.0-16.0) Hematocrit 38.7 % (37.0-47.0) Mean Corpuscular Volume 92 FL (80-99) Mean Corpuscular Hemoglobin 29.7 PG (27.0-31.0) Mean Corpuscular Hemoglobin Concent 32.4 G/DL (32.0-36.0) Red Cell Distribution Width 12.9 % (11.6-14.8) Platelet Count 177 K/UL (150-450) Mean Platelet Volume 6.6 FL (6.5-10.1) Neutrophils (%) (Auto) 52.6 % (45.0-75.0) Lymphocytes (%) (Auto) 21.5 % (20.0-45.0) Monocytes (%) (Auto) 15.8 % (1.0-10.0) H Eosinophils (%) (Auto) 7.8 % (0.0-3.0) H Basophils (%) (Auto) 2.4 % (0.0-2.0) H Sodium Level 130 MMOL/L (136-145) L Potassium Level 4.1 MMOL/L (3.5-5.1) Chloride Level 94 MMOL/L (98-107) L Carbon Dioxide Level 30 MMOL/L (21-32) Anion Gap 6 mmol/L (5-15) Blood Urea Nitrogen 5 mg/dL (7-18) L Creatinine 0.7 MG/DL (0.55-1.30) Estimat Glomerular Filtration Rate mL/min (>60) Glucose Level 98 MG/DL (74-106) Calcium Level 9.4 MG/DL (8.5-10.1) Intake and Output 11/19/18 11/20/18 18:59 06:59 Intake Total 650 ml 100 ml Output Total 200 ml 700 ml Balance 450 ml -600 ml Intake Oral 600 ml 100 ml IV Total 50 ml Output Urine Total 200 ml 700 ml # Voids 2 Objective PHYSICAL EXAMINATION: GENERAL: The patient is awake and responsive, in no acute distress, forgetful, and chronic ill-looking. HEAD AND NECK: Pupils are equal and reactive to light. Extraocular movements intact. Neck was supple. No JVD. Mouth has poor dentition. Neck was supple. No JVD. LUNGS: Good air entry. No wheezes or rales. Decreased air in the bases. HEART: S1, S2. Distant heart sounds. No murmurs, gallops, or rubs appreciated. ABDOMEN: Soft, nondistended, and nontender. Positive bowel sounds. EXTREMITIES: No cyanosis, clubbing, or edema. NEUROLOGIC: Cranial nerves II through XII grossly intact. The patient is moving all the extremities spontaneously. Gait was not assessed due to the patient's status. RECTAL: Refused and deferred. GENITOURINARY: Refused and deferred. PSYCHIATRIC: Mood and affect is intact. Assessment/Plan Assessment/Plan ASSESSMENT: 1. Atypical Chest pain 2. Paroxysmal atrial fibrillation. 3. Hypertension. 4. History of advanced dementia. 5. Hyponatremia. 6. Urinary tract infection. 7. Nausea PLAN: 1. Transfer to Med/surg 2. We will follow up with Dr. Rodrigues from Cardiology and Dr. Britton from Nephrology. 3. Broad spectrum antibiotic with Rocephin. 4. Monitor serial cardiac enzymes. 5. Code status, Full Code at this time. 6. DVT prophylaxis, heparin subcutaneous. 7. UTI=E. Coli-continue ceftriaxone 8. Discharge to [facility] long-term [facility] Jase De La Torre MD Nov 20, 2018 17:49
--- NOTE | 2018-11-20 18:37 | NUR ---
NURSE NOTES: patient removed her IV, no complications noted. Patient denies pain and discomfort. Cleaned IV site, no dressing needed. Will continue to monitor.
--- NOTE | 2018-11-20 19:07 | Pulmonology Progress Note ---
Assessment/Plan Problems: (1) Costochondritis (2) Dementia with behavioral disturbance (3) MDD (major depressive disorder) (4) ACS (acute coronary syndrome) (5) Protein calorie malnutrition (6) Dementia Assessment/Plan symptomatic treatment on DVT prophylaxis, low risk for PE respiratory treatment check electrolytes, Na. pain management pt/ot f/u by psych Subjective ROS Limited/Unobtainable: No Constitutional: Reports: no symptoms HEENT: Repors: no symptoms Respiratory: Reports: no symptoms Allergies: Coded Allergies: No Known Allergies (Unverified , 11/14/18) Objective Last 24 Hour Vital Signs Date Time Temp Pulse Resp B/P (MAP) Pulse Ox O2 Delivery O2 Flow Rate FiO2 11/20/18 16:00 97.9 66 19 122/73 (89) 98 11/20/18 12:00 97.7 59 18 126/64 (84) 96 11/20/18 09:00 Room Air 11/20/18 08:00 97.8 60 18 129/60 (83) 96 11/20/18 04:00 97.6 66 20 109/65 (80) 96 11/20/18 00:00 97.5 71 20 136/73 (94) 98 11/19/18 21:00 Room Air 11/19/18 20:00 97.1 64 20 153/68 (96) 97 Intake and Output 11/19/18 11/20/18 19:00 07:00 Intake Total 650 ml 100 ml Output Total 200 ml 700 ml Balance 450 ml -600 ml Intake Oral 600 ml 100 ml IV Total 50 ml Output Urine Total 200 ml 700 ml # Voids 2 General Appearance: WD/WN, no acute distress HEENT: normocephalic, atraumatic Respiratory/Chest: chest wall non-tender, lungs clear Cardiovascular: normal peripheral pulses, normal rate Abdomen: normal bowel sounds, no organomegaly Genitourinary: normal external genitalia Laboratory Tests 11/20/18 08:55: White Blood Count 5.7, Red Blood Count 4.22, Hemoglobin 12.5, Hematocrit 38.7, Mean Corpuscular Volume 92, Mean Corpuscular Hemoglobin 29.7, Mean Corpuscular Hemoglobin Concent 32.4, Red Cell Distribution Width 12.9, Platelet Count 177, Mean Platelet Volume 6.6, Neutrophils (%) (Auto) 52.6, Lymphocytes (%) (Auto) 21.5, Monocytes (%) (Auto) 15.8H, Eosinophils (%) (Auto) 7.8H, Basophils (%) ( Auto) 2.4H, Sodium Level 130L, Potassium Level 4.1, Chloride Level 94L, Carbon Dioxide Level 30, Anion Gap 6, Blood Urea Nitrogen 5L, Creatinine 0.7, Estimat Glomerular Filtration Rate , Glucose Level 98, Calcium Level 9.4 Current Medications Medications (Trade) Dose Ordered Sig/Abiel Route PRN Reason Start Time Stop Time Status Last Admin Dose Admin Acetaminophen (Tylenol) 325 mg Q4H PRN ORAL Mild Pain (Pain Scale 1-3) 11/19/18 01:00 12/15/18 00:59 Aspirin (ASA) 81 mg DAILY ORAL 11/19/18 09:00 12/15/18 08:59 11/20/18 08:36 Ceftriaxone Sodium 1 gm/ Dextrose 50 ml @ 100 mls/hr Q24H IVPB 11/19/18 14:00 11/22/18 13:59 11/20/18 14:55 Clonidine HCl (Catapres Tab) 0.1 mg Q6H PRN ORAL For High Blood Pressure 11/19/18 01:00 12/15/18 00:59 Docusate Sodium (Colace) 100 mg DAILY ORAL 11/19/18 09:00 12/18/18 08:59 11/20/18 08:35 Escitalopram Oxalate (Lexapro) 10 mg DAILY ORAL 11/19/18 09:00 12/15/18 08:59 11/20/18 08:36 Guaifenesin/ Dextromethorphan (Robitussin DM Syrup) 10 ml Q4H PRN ORAL For Cough 11/19/18 02:30 12/15/18 06:29 11/19/18 03:20 Heparin Sodium (Porcine) (Heparin 5000 units/ml) 5,000 units EVERY 8 HOURS SUBQ 11/18/18 22:45 12/15/18 05:59 11/20/18 14:56 Lorazepam (Ativan 2mg/ml 1ml) 0.5 mg Q6H PRN IV Agitation 11/19/18 02:00 11/23/18 07:59 Multivitamins Therapeutic (Therapeutic Multivitamin) 1 ea DAILY ORAL 1/1/19 09:00 12/15/18 08:59 11/20/18 08:36 Sodium Chloride 1,000 ml @ 50 mls/hr Q20H IV 11/20/18 11:00 12/20/18 10:59 11/20/18 11:25 Aaron Nash MD Nov 20, 2018 19:07
--- NOTE | 2018-11-20 19:46 | NUR ---
HAND-OFF: Report given to Kellie ESCOBEDO. Patient is stable.
[2018-11-20 20:00] VITALS: BP 134/69
--- NOTE | 2018-11-20 21:33 | NUR ---
NURSE NOTES: Pt discharged via [facility] w/ [facility]. Pt VSS, no pain, no signs of distress. Belongings w/ Pt & belongings list signed. Pt in stable condition.
--- NOTE | 2018-11-21 10:32 | Discharge Summary ---
Discharge Summary Discharge Summary _ DATE OF ADMISSION: 11/14/2018 DATE OF DISCHARGE: 11/20/2018 DISCHARGED BY: Dr. Vincenzo Abebe CONSULTANTS: Dr. 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 Patient stated chest pain radiated to the chin. There was no nausea or vomiting. Level of pain was noted to be 6 out of 10. Patient is a poor historian. On evaluation at the ED, blood pressure was 182/70, pulse rate 62, she was saturating 99% on room air. 1. EKG showed LAD with NSSTTW changes. Chest x-ray showed bilateral interstitial disease. CBC was normal. CMP showed sodium level 135. Troponin was negative. BNP 223. Albumin 2.9. Urinalysis with 2+ blood, negative nitrite, 2+ leukocyte esterase, 10-15 RBC, 5-10 WBC and many bacteria. She was given Nitropaste and aspirin. She was then admitted for evaluation of chest pain, possible acute coronary syndrome. She was admitted to the telemetry. She was given broad-spectrum antibiotics with Rocephin. She was given IV hydration. Cardiac evaluation was done. Troponin was negative x2. Chest pain was atypical. Patient was ruled out for NE. She was continued on aspirin 81 mg daily and Lasix for blood pressure control. Echocardiogram done showed ejection fraction of 60%. She was ordered Lexiscan stress test however family refused. She remained in sinus rhythm on the monitor. She underwent speech therapy. She had mild or worsened oropharyngeal dysphasia. She was recommended moist pured diet with thin liquids. Strict aspiration precaution. Patient was anxious and depressed. Psychiatrist was consulted. She was diagnosed with dementia. She was given Lexapro every morning and Ativan as needed. Patient was assessed to be low risk for PE. She was given DVT prophylaxis. She was given respiratory treatment. Urine showed growth of E. coli which is pansensitive. She remained chest pain- free. She was eventually discharged back to [facility]. FINAL DIAGNOSES: Atypical chest pain, ruled out for myocardial infarction E. coli UTI Questionable history of atrial fibrillation, in sinus rhythm. hypertension advanced dementia Hyponatremia Major depressive disorder DISPOSITION: Patient was discharged to a SNF. DISCHARGE MEDICATIONS: Refer to Discharge Medication List. I have been assigned to dictate discharge summary on this account, and I was not involved in the patient's management. Nettie Daniels NP Nov 21, 2018 10:32
== END 2018-11-20 21:45 | DRG 313 ==
LOC: EDBD 20:14 → EMR 20:25 → 2E 20:50 → EDBEDREQ 21:02 → 2E 11-15 06:06 → 3E 11-18 22:09
DX: R07.89 Other chest pain (principal); E87.1 Hypo-osmolality and hyponatremia; N39.0 Urinary tract infection, site not specified; R13.12 Dysphagia, oropharyngeal phase; B96.20 Unspecified Escherichia coli [E. coli] as the cause of diseases classified elsewhere; I10 Essential (primary) hypertension; F03.90 Unspecified dementia, unspecified severity, without behavioral disturbance, psychotic disturbance, mood disturbance, and anxiety; F32.9 Major depressive disorder, single episode, unspecified; J44.9 Chronic obstructive pulmonary disease, unspecified; I48.91 Unspecified atrial fibrillation; Z79.82 Long term (current) use of aspirin
CPT/HCPCS: 36415; 71045; 80048; 80053; 80061; 81003; 82550; 83735; 83880; 84100; 84439; 84443; 84484; 85025; 85610; 85730; 87081; 87086; 87181; 93005; 93306; 96361; 96365; 99285

== ENCOUNTER 2019-06-04 14:34 | Inpatient (IN) | payer MEDICARE, OTHER ==
[~2019-06-04] VITALS: Ht 165.1 cm; Wt 57.3 kg
[~2019-06-04 14:34] MED LIST: ACETAMINOPHEN325 M1 ORAL; ADULT ROBITUSS118 ML ORAL; ASPIRIN81 MG ORAL; CATAPRES0.1 MG ORAL; CEFTRIAXON1 GM/50 ML IV; CLONIDINE HCL0.1 MG PO; COLACE100 MG ORAL; CRANBERRY450 M4 PO; DOCUSATE SODIU100 M2 ORAL; HEPARIN SO5000 UNIT2 SUBQ; LEXAPRO10 MG ORAL; LORAZEPAM0.5 MG ORAL; MULTIVITAMINS1 EAC8 ORAL; ROBITUSSIN NIG237 ML PO; SODIUM CHLORIDE50 M1 IV
--- NOTE | 2019-06-04 14:44 | NUR ---
ED Nurse Note: Pt BIBA from [facility] due to "not able to eat anything since today". Pt appears combative, uncooperative at arrival. Vital signs stable. Will cont to monitor.
--- NOTE | 2019-06-04 14:51 | Emergency Room Report ---
History of Present Illness General Chief Complaint: Generalized Weakness Source: Medical Record Present Illness HPI 89 old female history of dementia hypertension, presents with failure to thrive , patient not tolerating p.o. at retirement, patient refusing to eat, patient has no complaints however history is limited to her dementia. No history of fevers per EMS. Allergies: Coded Allergies: No Known Allergies (Unverified , 06/04/19) Patient History Past Medical History: see triage record Reviewed Nursing Documentation: PMH: Agreed; PSxH: Agreed Nursing Documentation-PMH Past Medical History: No History, Except For Hx Cardiac Problems: Yes - A-fib, CP, Hx Hypertension: Yes Hx COPD: Yes Hx Gastrointestinal Problems: Yes - Dysphagia Hx Neurological Problems: Yes - Degenerative diseases of Nervous system Hx Dementia: Yes Review of Systems All Other Systems: limited - Demented patient Physical Exam Vital Signs Date Time Temp Pulse Resp B/P (MAP) Pulse Ox O2 Delivery O2 Flow Rate FiO2 06/04/19 14:35 98.2 78 16 130/70 (90) 96 Room Air Sp02 EP Interpretation: reviewed, normal General Appearance: no apparent distress, alert, cachetic Head: normocephalic, atraumatic Eyes: bilateral eye PERRL, bilateral eye EOMI ENT: uvula midline, dry mucus membranes Neck: supple, thyroid normal, supple/symm/no masses Respiratory: lungs clear, no respiratory distress, no retraction, no accessory muscle use Cardiovascular #1: normal peripheral pulses, regular rate, rhythm, no edema, no gallop, no murmur Gastrointestinal: non tender, soft, no guarding, no rebound Musculoskeletal: normal inspection Neurologic: alert, other - Moving all 4 extremities, Psychiatric: mood/affect normal Skin: no rash, warm/dry Medical Decision Making Diagnostic Impression: Primary Impression: Failure to thrive Additional Impression: Lactic acid acidosis ER Course 89-year-old female possible history of COPD, hypertension, dementia presents with not eating x1 day, patient is uncooperative, history is limited, however she has a elevated lactic acid, and positive urine ketones, which is consistent with her history of not eating. Lactic acid improved with hydration Patient admitted to Dr. Padilla Laboratory Tests Test 06/04/19 15:20 06/04/19 16:20 06/04/19 17:50 White Blood Count 8.4 K/UL (4.8-10.8) Red Blood Count 4.40 M/UL (4.20-5.40) Hemoglobin 12.6 G/DL (12.0-16.0) Hematocrit 40.5 % (37.0-47.0) Mean Corpuscular Volume 92 FL (80-99) Mean Corpuscular Hemoglobin 28.6 PG (27.0-31.0) Mean Corpuscular Hemoglobin Concent 31.1 G/DL (32.0-36.0) L Red Cell Distribution Width 14.8 % (11.6-14.8) Platelet Count 313 K/UL (150-450) Mean Platelet Volume 6.0 FL (6.5-10.1) L Neutrophils (%) (Auto) 58.3 % (45.0-75.0) Lymphocytes (%) (Auto) 29.0 % (20.0-45.0) Monocytes (%) (Auto) 8.5 % (1.0-10.0) Eosinophils (%) (Auto) 1.6 % (0.0-3.0) Basophils (%) (Auto) 2.7 % (0.0-2.0) H Prothrombin Time 10.5 SEC (9.30-11.50) Prothrombin Time INR 1.0 (0.9-1.1) PTT 26 SEC (23-33) Sodium Level 139 MMOL/L (136-145) Potassium Level 5.0 MMOL/L (3.5-5.1) Chloride Level 106 MMOL/L (98-107) Carbon Dioxide Level 22 MMOL/L (21-32) Anion Gap 11 mmol/L (5-15) Blood Urea Nitrogen 8 mg/dL (7-18) Creatinine 0.7 MG/DL (0.55-1.30) Estimate Glomerular Filtration Rate mL/min (>60) Glucose Level 99 MG/DL (74-106) Lactic Acid Level 2.50 mmol/L (0.4-2.0) H 1.20 mmol/L (0.66-2.22) Calcium Level 9.5 MG/DL (8.5-10.1) Phosphorus Level 3.2 MG/DL (2.5-4.9) Magnesium Level 2.0 MG/DL (1.8-2.4) Total Bilirubin 0.6 MG/DL (0.2-1.0) Aspartate Amino Transferase (AST) 38 U/L (15-37) H Alanine Aminotransferase (ALT) 13 U/L (12-78) Alkaline Phosphatase 107 U/L (46-116) Total Creatine Kinase 166 U/L (26-308) Creatine Kinase MB 4.1 NG/ML (0.0-3.6) H Creatine Kinase MB Relative Index 2.4 Troponin I 0.054 ng/mL (0.000-0.056) Pro-B-Type Natriuretic Peptide 857 pg/mL (0-125) H Total Protein 8.0 G/DL (6.4-8.2) Albumin 3.2 G/DL (3.4-5.0) L Globulin 4.8 g/dL Albumin/Globulin Ratio 0.7 (1.0-2.7) L Lipase 76 U/L (73-393) Urine Color Pale yellow Urine Appearance Clear Urine pH 7 (4.5-8.0) Urine Specific [place] 1.010 (1.005-1.035) Urine Protein Negative (NEGATIVE) Urine Glucose (UA) Negative (NEGATIVE) Urine Ketones 2+ (NEGATIVE) H Urine Blood Negative (NEGATIVE) Urine Nitrite Negative (NEGATIVE) Urine Bilirubin Negative (NEGATIVE) Urine Urobilinogen Normal MG/DL (0.0-1.0) Urine Leukocyte Esterase Negative (NEGATIVE) EKG Diagnostic Results EKG Time: 17:26 EP Interpretation: 92 Rate: normal Rhythm: NSR ST Segments: no acute changes ASA given to the pt in ED: No Rhythm Strip Diag. Results Rhythm Strip Time: 17:32 EP Interpretation: yes Rate: 90 Rhythm: NSR, no PVC's, no ectopy Last Vital Signs Date Time Temp Pulse Resp B/P (MAP) Pulse Ox O2 Delivery O2 Flow Rate FiO2 06/04/19 14:35 98.2 78 16 130/70 (90) 96 Room Air Disposition: ADMITTED INPATIENT Condition: Improved Nav Haines M.D. Jun 04, 2019 14:51
--- NOTE | 2019-06-04 15:23 | NUR ---
attempted to take EKG, patient became combative. ERMD notified.
--- NOTE | 2019-06-04 15:23 | NUR ---
ED Nurse Note: Pt is really aggresive toward staffs verbally and trying to scratch staffs.
[2019-06-04] MEDS ORDERED: DiphenhydrAMINE 50mg/ml Inj IVP ONE (15:30)
[2019-06-04] MEDS ORDERED: LORazepam Inj 2mg/ml 1ml IV ONE (15:30)
[2019-06-04 15:48] LABS: BASOPHILS % (AUTO) 2.7 % (0.0-2.0); EOSINOPHILS % (AUTO) 1.6 % (0.0-3.0); HEMATOCRIT 40.5 % (37.0-47.0); HEMOGLOBIN 12.6 G/DL (12.0-16.0); MEAN CORPUSCULAR VOLUME 92 FL (80-99); MONOCYTES % (AUTO) 8.5 % (1.0-10.0); NEUTROPHILS % (AUTO) 58.3 % (45.0-75.0); PLATELET COUNT 313 K/UL (150-450); RED CELL DISTRIBUTION WIDTH 14.8 % (11.6-14.8); WHITE BLOOD COUNT 8.4 K/UL (4.8-10.8)
--- NOTE | 2019-06-04 15:51 | Diagnostic Imaging Report ---
Indication: Dyspnea Comparison: 11/17/2018 A single view chest radiograph was obtained. Findings: There is some prominence of the interstitium and pulmonary vascularity but this is unchanged from last study. Heart is also prominent. Aorta is moderately calcified and enlarged. The bones are osteopenic. IMPRESSION: Some degree of mild chronic CHF is not excluded. Correlate clinically. No significant change.
[2019-06-04 15:55] LABS: ANION GAP 11 mmol/L (5-15); BLOOD UREA NITROGEN 8 mg/dL (7-18); CALCIUM 9.5 MG/DL (8.5-10.1); CARBON DIOXIDE 22 MMOL/L (21-32); CHLORIDE 106 MMOL/L (98-107); CREATININE 0.7 MG/DL (0.55-1.30); SODIUM 139 MMOL/L (136-145)
--- NOTE | 2019-06-04 16:00 | NUR ---
PAGED DR HSU REGARDING ADMISSION
[2019-06-04 16:15] LABS: ALANINE AMINOTRANSFERASE 13 U/L (12-78); ALBUMIN 3.2 G/DL (3.4-5.0); ALBUMIN/GLOBULIN RATIO 0.7 (1.0-2.7); ALKALINE PHOSPHATASE 107 U/L (46-116); ASPARTATE AMINO TRANSFERASE 38 U/L (15-37); BILIRUBIN,TOTAL 0.6 MG/DL (0.2-1.0); CKMB 4.1 NG/ML (0.0-3.6); CREATINE KINASE 166 U/L (26-308); PHOSPHORUS 3.2 MG/DL (2.5-4.9)
[2019-06-04 16:47] LABS: APPEARANCE,URINE CLEAR; BILIRUBIN, URINE NEGATIVE (NEGATIVE); COLOR,URINE PALE YELLOW; GLUCOSE, URINE (UA) NEGATIVE (NEGATIVE); KETONES,URINE 2+ (NEGATIVE); LEUKOCYTE ESTERASE ,URINE NEGATIVE (NEGATIVE); NITRITE,URINE NEGATIVE (NEGATIVE); PH,URINE 7 (4.5-8.0); PROTEIN,URINE NEGATIVE (NEGATIVE); UROBILINOGEN,URINE NORMAL MG/DL (0.0-1.0)
[2019-06-04 17:12] VITALS: BP 149/74
--- NOTE | 2019-06-04 17:59 | NUR ---
PAGED DR HSU FOR ADMISSION
[2019-06-04 18:06] VITALS: BP 132/79
--- NOTE | 2019-06-04 18:10 | NUR ---
ED Nurse Note: Aleena Nino, grand daughter,
--- NOTE | 2019-06-04 18:35 | NUR ---
NURSE NOTES: telephone report was received from Lakisha ESCOBEDO from ER.Patient is Tele overflow under the care of Dr Beltran. Patient is not on the floor yet. Patient will come up @ 1900 per instruction by KANNAN Samuels.will endorse accordingly.
--- NOTE | 2019-06-04 18:36 | NUR ---
ED Nurse Note: Report given to GREGG Muñoz at ext [phone]. Pt to be transfered to room 237-1 on [facility] per protocol after 1900 per GONZALO RN's instruction.
--- NOTE | 2019-06-04 19:20 | NUR ---
NURSE NOTES: Patient arrived via gurney from the ED. On room air and does not show signs and symptoms of pain and distress. Linens are changed, patient is cleaned. New gown and vascular manager placed. Bed on lowest position and bed alarm is activated. Will call Dr. Merrill for admitting orders. Patient report received from GREGG JIMENEZ. Will initiate plan of care
--- NOTE | 2019-06-04 19:27 | NUR ---
HAND-OFF: Report given to funmilayo dupont.
[2019-06-04] MEDS ORDERED: HydrALAZINE 25mg tab ORAL PRN (19:45)
[2019-06-04 20:00] VITALS: BP 140/94
[2019-06-04] MEDS: D5 1/2NS 1,000 ML IV SCH (20:33)
[2019-06-04] MEDS: Heparin 5000 units/ml inj SUBQ SCH (20:34)
[2019-06-05] VITALS: BP 145/79
[2019-06-05 04:00] VITALS: BP 133/72
[2019-06-05 04:59] LABS: BASOPHILS % (AUTO) 1.4 % (0.0-2.0); EOSINOPHILS % (AUTO) 2.4 % (0.0-3.0); HEMATOCRIT 35.8 % (37.0-47.0); HEMOGLOBIN 11.1 G/DL (12.0-16.0); LYMPHOCYTES % (AUTO) 22.8 % (20.0-45.0); MEAN CORPUSCULAR VOLUME 92 FL (80-99); NEUTROPHILS % (AUTO) 62.5 % (45.0-75.0); PLATELET COUNT 247 K/UL (150-450); RED BLOOD COUNT 3.89 M/UL (4.20-5.40); RED CELL DISTRIBUTION WIDTH 15.3 % (11.6-14.8); WHITE BLOOD COUNT 5.9 K/UL (4.8-10.8)
[2019-06-05 05:22] LABS: AMMONIA < 10 umol/L (11-32)
[2019-06-05 05:25] LABS: ALANINE AMINOTRANSFERASE 13 U/L (12-78); ALBUMIN 2.8 G/DL (3.4-5.0); ALBUMIN/GLOBULIN RATIO 0.8 (1.0-2.7); ALKALINE PHOSPHATASE 88 U/L (46-116); ANION GAP 12 mmol/L (5-15); ASPARTATE AMINO TRANSFERASE 44 U/L (15-37); BILIRUBIN,TOTAL 0.8 MG/DL (0.2-1.0); BLOOD UREA NITROGEN 6 mg/dL (7-18); CALCIUM 8.6 MG/DL (8.5-10.1); CARBON DIOXIDE 24 MMOL/L (21-32); CHLORIDE 103 MMOL/L (98-107); CHOLESTEROL 186 MG/DL (< 200); CREATININE 0.5 MG/DL (0.55-1.30); FERRITIN 30 NG/ML (8-388); GAMMA GLUTAMYL TRANSPEPTIDASE < 3 U/L (5-85); HDL CHOLESTEROL 42 MG/DL (40-60); PHOSPHORUS 2.4 MG/DL (2.5-4.9); POTASSIUM 2.9 MMOL/L (3.5-5.1); SODIUM 139 MMOL/L (136-145); TRIGLYCERIDES 64 MG/DL (30-150)
[2019-06-05 05:57] LABS: % IRON SATURATION 12 % (15-50); IRON 30 ug/dL (50-175); TOTAL IRON BINDING CAPACITY 246 ug/dL (250-450)
--- NOTE | 2019-06-05 07:10 | NUR ---
HAND-OFF: Report given to GREGG ALMANZA.
--- NOTE | 2019-06-05 07:11 | NUR ---
NURSE NOTES: Received report from GREGG Sheffield. Observed patient in bed, asleep, arousable to verbal stimuli. Patient on room air, no acute respiratory distress noted. electronic device monitor shows sinus rhythm. NPO at this time per MD order. Left forearm 22g intact, patent, and wrapped with IV fluids running at prescribed rate. No c/o pain/discomfort at this time. Safety precautions in place - bed locked, alarmed, and in lowest position, padded side rails up x3, and call light left within reach. Will continue to monitor patient.
[2019-06-05 08:00] VITALS: BP 142/94
[2019-06-05] MEDS ORDERED: LORazepam Inj 2mg/ml 1ml IV PRN ×2 (08:45→19:00)
[2019-06-05] MEDS ORDERED: Aspirin Baby 81mg ORAL SCH (09:00)
[2019-06-05] MEDS: Docusate 100mg cap ORAL SCH ×2 (09:15→12:40)
[2019-06-05] MEDS: Heparin 5000 units/ml inj SUBQ SCH ×2 (09:28→22:14)
--- NOTE | 2019-06-05 09:42 | NUR ---
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 LACTIC ACID ACIDOSIS VS: BP 130/70, P 93, T 98.3, RR 16, SpO2 96 AST 38, LACTIC ACID 2.50 IS:LORAZEPAM 1mg IV BENADRYL 25mg IVP NS x1L IV ADMITTED TO [facility] DCP: RETURN TO [facility]
[2019-06-05] MEDS ORDERED: cefTRIAXone 1 GM in D5W 55 ML IVPB SCH (10:00)
--- NOTE | 2019-06-05 11:13 | NUR ---
RD ASSESSMENT & RECOMMENDATIONS SEE CARE ACTIVITY FOR COMPLETE ASSESSMENT DAILY ESTIMATED NEEDS: Needs based on Cardiac, advanced age 59kg 25-30 kcals/kg 1956-0124 total kcals 1-1.2 g protein/kg 57-68 g total protein 20-25 mL/kg 2372-1826 total fluid mLs NUTRITION DIAGNOSIS: Altered nutrition related lab values r/t clinical status as evidenced by low lyes: K 2.9, MG 1.7, Phos 2.4. CURRENT DIET:NPO PO DIET RECOMMENDATIONS: LOW NA diet, texture per PHYSICAL THERAPY TEACHER ADDITIONAL RECOMMENDATIONS: 1) Obtain a calibrated bed scale wt 2) Replete lytes ELECTRONIC WARFARE TECHNICIAN diet 3) Non oral TF recs if part of POC w/ poor po intake 4) Rec Ensure w/ diet order Monitor BG/ need for carb control supplement
[2019-06-05 12:00] VITALS: BP 113/56
--- NOTE | 2019-06-05 14:10 | NUR ---
NURSE NOTES: Unable to do swallow eval, Dr Britton at bedside, informed and made aware.
--- NOTE | 2019-06-05 14:53 | History & Physical ---
History and Physical History & Physicial 89 old female history of dementia hypertension, presents with failure to thrive , patient not tolerating p.o. at [facility], patient refusing to eat, patient has no complaints however history is limited to her dementia. No history of fevers per EMS. No Known Allergies (Unverified , 06/04/19) Past Medical History: No History, Except For Hx Cardiac Problems: Yes - A-fib, CP, Hx Hypertension: Yes Hx COPD: Yes Hx Gastrointestinal Problems: Yes - Dysphagia Hx Neurological Problems: Yes - Degenerative diseases of Nervous system Hx Dementia: Yes PAST MEDICAL HISTORY/PAST SURGICAL HISTORY: As above, history of COPD, oropharyngeal dysphagia, dementia, history of severe protein-calorie malnutrition, paroxysmal atrial fibrillation, osteoarthritis, hypertension , degenerative joint disease of the spine, and prior history of encephalopathy. Encephalopathy Elevated lactic acid FTT malnutrition PAF HTN ? UTI Per orders [facility] # [id number] Matthew Britton MD Jun 05, 2019 14:53
[2019-06-05] MEDS: D5 1/2NS 1,000 ML IV SCH ×2 (15:30→19:00)
--- NOTE | 2019-06-05 15:59 | NUR ---
SPEECH PATHOLOGY: S: PATIENT CHART REVIEWED, PATIENT SEEN AT BEDSIDE. O: BEDSIDE SWALLOW EVALUATION A: PATIENT SEDATED SECONDARY TO AGITATION/RESTLESSNESS AND UNABLE TO SAFELY PARTICIPATE IN P.O. TRIALS THIS AFTERNOON. P: BSE DEFERRED TO 06/06/19
[2019-06-05 16:00] VITALS: BP 126/60
[2019-06-05] MEDS ORDERED: Potassium Phosphate 20 MM in NS 275 ML IV ONE ×2 (16:00→19:00)
--- NOTE | 2019-06-05 18:00 | NUR ---
TRANSFER TO FLOOR: Patient transferred to telemetry room 201-1. Report given to Gayatri. Belongings list acknowledged and signed by receiving nurse. Aleena, granddaughter aware of transfer. Patient in stable condition.
[2019-06-05] MEDS ORDERED: HydrALAZINE 25mg tab ORAL PRN (19:00)
--- NOTE | 2019-06-05 19:27 | NUR ---
NURSE NOTES: received pt from GONZALO GREGG Benitez. pt sleeping and calm. Pt on alarm security or surveillance monitor no signs of distress cardiac or respiratory. bed is locked and in lowest position. Side rails are padded. Call light is in lowest position. Iv is running pt has 3 IV sites they are all patent.
--- NOTE | 2019-06-05 19:47 | Consultation ---
Consult Note Consult Note NEUROLOGY CONSULTATION: Full note dictated #[id number] 89-year-old, black lady, of unknown handedness, with past history of hypertension, chronic obstructive pulmonary disease, dementia of unknown type, protein calorie malnutrition, who lives in the group home. She was hospitalized for an alteration in her mental state. Unfortunately it is unclear as to what her baseline mental state is. ON EXAM: Awake but not alert. Unable to cooperate for further mental status testing. Significantly aphasic. Significantly dysarthric. Keeps eyes closed. Significantly negativistic when eyes are pried open. Quadriparetic with the left side being weaker than the right Globally absent deep tendon reflexes. Equivocal plantar responses bilaterally. IMPRESSION: Patient with unknown baseline mental state who was brought in for an altered mental state. Significant cognitive and motor dysfunction noted. Focal neurological findings more marked over the left body than right body. Laboratory data revealed anemia, hypoalbuminemia. RECOMMENDATIONS: CT of brain without contrast to evaluate for intracranial pathology EEG to evaluate degree and type of cerebral dysfunction. Treatment of medical problems as per Dr. Britton. Treatment of agitation with neuroleptics rather than benzodiazepines. Michael Lovett M.D., M.S.P.H. Michael Lovett MD Jun 05, 2019 19:47
[2019-06-05 20:00] VITALS: BP 145/78
--- NOTE | 2019-06-05 20:41 | NUR ---
HAND-OFF: Report given to Magdalena ESCOBEDO. pt is stable an on restrains because pt was pulling out multiple IV's.
--- NOTE | 2019-06-05 20:43 | NUR ---
NURSE NOTES: Received a Tele over flow pt from GONZALO. While in the process of transferring meds from GONZALO to tele. seroquel was discontinued by another nurse. Therefore, I was not able to give pt seroquel so pt had to be put on restrains since there was no other way to prevent pt to take off multiple Iv's.
--- NOTE | 2019-06-05 20:44 | NUR ---
NURSE NOTES: Pt is lying awake, supine, appears restless and agitated. Pt on farm service adviser no signs of distress cardiac or respiratory. bed is locked and in lowest position. Side rails are padded. Call light within reach. Iv is running pt has 3 IV sites, all patent. will continue to monitor patient.
--- NOTE | 2019-06-05 22:15 | Consultation ---
DATE OF CONSULTATION: 06/05/2019 NEUROLOGY CONSULTATION CONSULTING PHYSICIAN: Michael Lovett M.D. REFERRING PHYSICIAN: Matthew Britton M.D. HISTORY: Ms Elvie Hunt is an 89-year-old, black lady, of unknown handedness, with a past history of hypertension, chronic obstructive pulmonary disease, dementia of unknown type, and protein-calorie malnutrition, who lives in a long-term. She was hospitalized for alteration in the mental state. Unfortunately, it is unclear as to what her baseline mental state is. It was thought that she may have had an infectious process and as a result of that she has been started on antibiotics. This consultation was requested to evaluate the patient for her altered mental state. PAST MEDICAL HISTORY: Significant for hypertension, chronic obstructive pulmonary disease, dementia of unknown type, and protein-calorie malnutrition. FAMILY HISTORY: Unavailable. PERSONAL HISTORY: Home: She lives in a long-term. Work: Unknown. Habits: Unknown. MEDICATIONS: Ceftriaxone, aspirin 81 mg daily, DSS, Seroquel 25 mg twice a day, heparin for DVT prophylaxis, pantoprazole, Tylenol p.r.n., hydralazine p.r.n., and lorazepam p.r.n. PHYSICAL EXAMINATION: GENERAL: She is a well-developed, lean and cachectic looking black lady, lying in bed quite restless at times, mumbling and not making any sense. VITAL SIGNS: Pulse 69/minute, blood pressure 126/60 mmHg, respirations 20/minute, and temperature 97 degrees Fahrenheit. HEAD: Nnormocephalic and atraumatic. EENT:Examination benign except for inability to examine her eyes because she kept her eyes shut and would not open them. NECK: No neck rigidity was observed. NEUROLOGICAL EXAMINATION: MENTAL STATUS EXAMINATION: She was awake, but not alert. She was unable to cooperate for further mental status testing. SPEECH: She was dysarthric. LANGUAGE: She had problems with comprehension, repetition, and expression of language and spoke in a jargon. CRANIAL NERVES EXAMINATION: II: Could not be tested because she kept her eyes closed and was significantly negativistic when attempts were made to open her eyes. III, IV & : Could not be tested because she kept her eyes shut. V & VII: The corneal reflexes were present, but diminished on the left side compared to the right. In addition, she also had flattening of the left nasolabial fold. VIII: She seemed to be able to hear. IX & X: The gag reflex was present, but diminished. XI: The sternocleidomastoids and trapezii did function. XII: The tongue was in the midline. MOTOR SYSTEM: The tone was increased in all four extremities with a combination of spasticity and gegenhalten. Examination of muscle mass revealed generalized muscle wasting. Examination of power was impossible to perform on individual muscle groups. She seemed to be quadriparetic with the left side being weaker than the right and the lower extremities being weaker than the upper extremities. SENSORY EXAMINATION: She responded appropriately to deep pain. She was unable to cooperate for other sensory modalities. REFLEXES: 0 at the biceps, triceps, brachioradialis, knees, and ankles. The plantar responses were equivocal bilaterally. COORDINATION, STANCE & GAIT: Could not be tested. DIAGNOSTIC IMPRESSION: 1. Ms Elvie Hunt is an 89-year-old, black lady, of unknown handedness, who does have a past history of hypertension, chronic obstructive pulmonary disease, dementia of unknown type, and protein-calorie malnutrition, who lives in a long-term. She was hospitalized for an alteration in her mental state. Unfortunately, it is unclear what her baseline mental state is. 2. On neurological examination at this time, she is awake but not alert. She is unable to cooperate for further mental status testing. She is significantly dysarthric and aphasic. She keeps her eyes closed and is quite negativistic when attempts are made to open her eyes. She has left greater than right quadriparesis associated with spasticity in all four extremities and in addition gegenhalten. The deep tendon reflexes are globally absent and her plantar responses are equivocal. 3. Laboratory data obtained thus far have revealed that she was anemic with a hemoglobin of 11.1 G. The chemistry panel revealed that she was hypokalemic with a potassium of 2.9. The BUN was low at 6 and creatinine was low at 0.5. Her phosphorus was low at 2.4. Magnesium was low at 1.7. Her AST was elevated at 44. Her ammonia was less than 10. Her CRP was elevated at 2.3. Her proBNP was elevated at 1425. Her Albumin was low at 2.8. Her B12 level was normal at 853. Her folate was normal at 16.7. Her TSH was normal at 0.62. Her urinalysis revealed a negative leukocyte esterase. Unfortunately, there is no cell count performed on the urine. 4. The patient's history and neurological examination are most consistent with significant alteration in her mental state. However, unfortunately it is unclear as to what her baseline mental state is. She also exhibits significant cognitive and motor dysfunction. She does have focal neurological findings with her left body affected more than the right and the lower extremities affected more than the upper extremities. 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 She may now have a superimposed encephalopathy. RECOMMENDATIONS: 1. Agree with management thus far. 2. Treatment of behavioral problems with neuroleptics rather than benzodiazepines. 3. A CT scan of the brain will be ordered to evaluate the patient for intracranial pathology. 4. An EEG will be ordered to evaluate the patient for the degree and type of cerebral dysfunction. 5. The patient will be observed closely and depending on how she fares over the next day or so, further recommendations will be given. Thank you for entrusting me with the care of Ms. Hunt. I shall her follow with you. Michael Lovett M.D., M.S.P.H. DR: SILKE JOB#: [id number] MTDD
[2019-06-06] VITALS: BP 106/67
[2019-06-06 04:00] VITALS: BP 135/63
--- NOTE | 2019-06-06 06:36 | NUR ---
CASE MANAGEMENT:REVIEW 06/06/19 SI: ENCEPHALOPATHY. FTT. MALNUTRITION 97.4 89 22 106/67 92% ON RA IS: IV ROCEPHIN QD ASA PO QD HEPARIN SQ Q12 PROTONIX PO QD IPU412/HR : TELEMETRY STATUS DCP: FROM [facility]
--- NOTE | 2019-06-06 07:24 | NUR ---
HAND-OFF: Report given to GREGG Mortensen .
--- NOTE | 2019-06-06 07:59 | NUR ---
NURSE NOTES: Patient is asleep. No s/s of distress. Patient is on room air. Side rails are upx3 and padded. Bed is locked and in lowest position. Will continue to monitor.
[2019-06-06 08:00] VITALS: BP 111/79
[2019-06-06] MEDS: Heparin 5000 units/ml inj SUBQ SCH ×2 (08:26→20:43)
[2019-06-06] MEDS: Docusate 100mg cap ORAL SCH ×3 (08:29→17:48)
[2019-06-06] MEDS: Aspirin Baby 81mg ORAL SCH (08:29)
[2019-06-06] MEDS: cefTRIAXone 1 GM in D5W 55 ML IVPB SCH (09:46)
[2019-06-06] MEDS ORDERED: D5 1/2NS 1000ml IV ONE (11:13)
[2019-06-06] MEDS ORDERED: Tubing IV Secondary IV ONE (11:13)
[2019-06-06] MEDS ORDERED: D5W 275ml ONE (11:13)
[2019-06-06] MEDS ORDERED: NS 275ml ONE (11:18)
[2019-06-06] MEDS: D5 1/2NS 1,000 ML IV SCH (11:21)
--- NOTE | 2019-06-06 11:43 | Diagnostic Imaging Report ---
Indications: Altered mental status Technique: Spiral acquisitions obtained through the brain. Angled axial and coronal 5 x 5 mm slices were reconstructed. Total dose length product 1548.51 mGycm. CTDI vol(s) 70.38 mGy. Dose reduction achieved using automated exposure control Comparison: None. Findings: Low-attenuation is seen in the right occipital lobe extending cephalad into the adjacent posterior parasagittal parietal lobe, likely representing a late subacute infarct. There is minimal local mass effect, manifested by attenuation of the adjacent sulci. There is no associated hemorrhage. There is encephalomalacia of the high left posterior parietal lobe. There is fairly intense low attenuation of the periventricular deep white matter posteriorly, less intense periventricular deep white matter low-attenuation generally. There is a small focus of encephalomalacia in the high left frontal lobe extending to the cortex. There is marked enlargement of the ventricles and to a lesser extent the extra-axial CSF spaces, ventriculomegaly slightly out of proportion to the degree of cortical volume loss. The remainder the shannon-white differentiation is preserved. No acute intracranial hemorrhage. No midline shift. Impression: Low-attenuation in the right occipital and posterior parietal lobes with slight mass effect manifested by attenuation of the adjacent sulci. 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 Ventriculomegaly. Probably secondary to central volume loss, but somewhat out of proportion to the degree of sulcal dilatation and the possibility of normal pressure hydrocephalus should be considered Negative for acute intracranial bleed or mass effect The CT scanner at [facility] is accredited by the [employer] and the scans are performed using protocols designed to limit radiation exposure to as low as reasonably achievable to attain images of sufficient resolution adequate for diagnostic evaluation.
--- NOTE | 2019-06-06 11:55 | General Progress Note ---
Assessment/Plan Problem List: (1) Lactic acid acidosis Assessment & Plan: ? UTI ICD Codes: E87.2 - Acidosis SNOMED: 23028884 (2) Failure to thrive SNOMED: 33354611 (3) Acute encephalopathy ICD Codes: G93.40 - Encephalopathy, unspecified SNOMED: 93518222, 915581388 (4) Dementia with behavioral disturbance ICD Codes: F03.91 - Unspecified dementia with behavioral disturbance SNOMED: 7478510864850 Status: unchanged Status Narrative Encephalopathy Elevated lactic acid FTT malnutrition PAF HTN ? UTI Assessment/Plan: Per orders Neuro appreciated ST eval Rocephin Subjective ROS Limited/Unobtainable: No Constitutional: Reports: malaise, weakness Allergies: Coded Allergies: No Known Allergies (Unverified , 06/04/19) Objective Last 24 Hour Vital Signs Date Time Temp Pulse Resp B/P (MAP) Pulse Ox O2 Delivery O2 Flow Rate FiO2 06/06/19 08:00 78 06/06/19 08:00 Room Air 06/06/19 08:00 96.3 75 18 111/79 (90) 100 06/06/19 04:00 88 06/06/19 04:00 97.9 86 20 135/63 (87) 92 06/06/19 00:00 76 06/06/19 00:00 97.4 89 22 106/67 (80) 91 06/05/19 21:00 Room Air 06/05/19 20:00 97.2 98 22 145/78 (100) 92 06/05/19 20:00 86 06/05/19 16:00 97.0 69 20 126/60 (82) 98 06/05/19 15:13 70 06/05/19 12:00 97.6 64 20 113/56 (75) 100 Intake and Output 06/05/19 06/06/19 19:00 07:00 Intake Total 1104.80279 ml Balance 1104.25550 ml Intake IV Total 1104.74465 ml # Voids 2 2 # Bowel Movements 1 1 Height (Feet): 5 Height (Inches): 5.00 Weight (Pounds): 126 General Appearance: mild distress Neck: limited range of motion Cardiovascular: tachycardia Respiratory/Chest: decreased breath sounds Abdomen: distended Matthew Britton MD Jun 06, 2019 11:55
[2019-06-06 12:00] VITALS: BP 121/60
--- NOTE | 2019-06-06 12:19 | NUR ---
REFERRED BY DR HSU FOR A SWALLOW EVALUATION, TOO LETHARGIC YESTERDAY. SEE FULL REPORT IN ST CARE ACTIVITY SECTION. DYSPHAGIA RISK FACTORS FOR THIS 89 Y.O. 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 H/O dementia, op dysphagia, COPD, ENCEPHALOPATHY, PROTEIN-ERIN MALNUTRTION, CP, AF. NO POLST NOR AD IN CHART REGARDING TF PREFERENCES GRANDDTRS NOT SURE ABOUT FEEDING TUBE AT THIS TIME. AT [facility] SEEN FOR SWALLOW EVAL 10/2018 AND HAD DYSPHAGIA BUT APPEARED TO TOLERATE PUREED AND NECTAR THICK LIQUIDS MORE SAFELY. SINCE PT REFUSED NECTAR THICK LIQUIDS, PATIENT UPGRADED TO THIN LIQUIDS AND HAD GOOD INTAKE PRIOR TO D/C. MOD BARIUM SWALLOW STUDY WAS ORDERED BUT NOT COMPLETED DUE TO SCHEDULE CONFLICTS. AT SNF ON A NINI VEGAN PUREED AND THIN LIQUID DIET (THOUGH DISLIKES IT) NOW NPO EXCEPT ICE CHIPS AND MEDS NONE GIVEN PER TAKE DOWN SORTER SAID SHE HAS BEEN EATING WELL AND HAS BEEN ON PUREED DIET FOR A LONG TIME. PRESENTLY THE PATIENT IS UNABLE TO TOLERATE PO TRIALS DUE TO NOT ALERT (PER RNALFONSO, SHE MAY HAVE HAD ATIVAN MORE RECENTLY SINCE SHE WAS AGITATED AND TRYING TO GET OUT OF THE BED. PER FAMILY, THE PATIENT DID NOT HAVE PROBLEMS WITH THIN LIQUIDS AND PUREED FOOD AT THE SNF BUT DISLIKED NECTAR THICK LIQUIDS (SO UPGRADED TO THIN). PT HAS A H/O COUGHING W/O PO (HAS COPD BUT NO H/O SMOKING PER FAMILY). FAMILY DID NOT HAVE A LOT OF INFORMATION ON HER DEMENTIA DIAGNOSIS BUT PATIENT WAS ABLE TO COMMUNICATE HER NEEDS SO HER STAGE IS NOT ADVANCED AND SHE LIKES TO EAT AND HAS A GOOD APPETITE. EDENTULOUS NO DENTURES AND HAS SPONTANEOUS COUGH W/O PO FOR A LONG TIME PER FAMILY. DID NOT WAKE UP NOR OPEN EYES AND ON ROOM AIR. INITIAL IMPRESSIONS: NOT ALERT FOR PO INTAKE (DAY 3 NO PO) HIGH RISK FOR PERSISTENT AND WORSENED (HAD LATE SUBACUTE CVA AND H/O MULTIPLE PRIOR CVAS) DYSPHAGIA AND SILENT ASPIRATION RECOMMENDATIONS: CONSERVATIVELY, CONSIDER NGT SMALL 12 UPPER SORBIAN IF PT IS STILL NOT ALERT FOR PO INTAKE OVER THE WEEKEND AND IF FAMILY IS RECEPTIVE. MODIFIED BARIUM SWALLOW STUDY TO FURTHER ASSESS SWALLOW, DETERMINE SILENT ASP RISK AND ETIOLOGY, AND ATTEMPT TRIAL TX TECHNIQUES. DYSPHAGIA MANAGEMENT AND TX AND COG-COM EVAL/TX D/W GREGG HAMILTON AND AND LEFT MESSAGE WITH DR HSU. Addendum: 06/06/19 at 1232 by FABIO CASTRO BREWER HELPER PER DR ARACELIS SOLANO TO INSERT NGT FOR NOW LEFT MESSAGE WITH RD FOR FORMULA
--- NOTE | 2019-06-06 12:55 | NUR ---
NURSE NOTES: Patient not alert enough to participate in PO trials with ST. Dr. Britton notified. New order received to inset NGT.
--- NOTE | 2019-06-06 13:34 | NUR ---
RD ASSESSMENT & RECOMMENDATIONS SEE CARE ACTIVITY FOR COMPLETE ASSESSMENT DAILY ESTIMATED NEEDS: Needs based on Cardiac, advanced age 59kg 25-30 kcals/kg 8887-8013 total kcals 1-1.2 g protein/kg 57-68 g total protein 20-25 mL/kg 9053-3538 total fluid mLs NUTRITION DIAGNOSIS: Altered nutrition related lab values r/t clinical status as evidenced by low lyes: K 2.9, MG 1.7, Phos 2.4. CURRENT DIET: NPO ENTERAL NUTRITION RECOMMENDATIONS: Glucerna 1.2 @50ml /hr x24 hrs to provide 1200ml, 1440 kcal, 72g pro, 966ml free H2O - Obtain GI access, initiate Glucerna 1.2 @20ml for 6 hrs - Advance as tolerated 10ml/hr q4-6 hrs to goal - Flush per MD/ HOB over 30 degrees ------- ADDITIONAL RECOMMENDATIONS: 1) Obtain a calibrated bed scale wt 2) Replete lytes DEPUTY CHIEF MAGISTRATE diet 3) Non oral TF recs if part of POC w/ poor po intake 4) MONITOR LYTES CLOSELY W/ TF/ AT HIGH RISK FOR REFEEDING MONITOR BG/ NEED FOR NISS
--- NOTE | 2019-06-06 13:55 | Neurology Progress Note ---
Interim History Interim History Interim History Ms. Hunt is calm today. As per Dr Britton her baseline is being calm and unable to communicate in a meaningful manner. She is unable to tell me how she feels. She follows a few non-verbal commands but cannot follow verbal commands. She continues to be cognitively impoverished. She continues to be motorically challenged. Review of Systems Neuro Review of Systems Unable to obtain. Objective Physical Exam Last Vital Signs Date Time Temp Pulse Resp B/P (MAP) Pulse Ox O2 Delivery O2 Flow Rate FiO2 06/06/19 12:00 78 06/06/19 12:00 97.2 20 121/60 (80) 97 06/06/19 08:00 Room Air Neurologic Exam Objective PHYSICAL EXAMINATION: GENERAL: She is a well-developed, lean and cachectic looking black lady, lying in bed, calmly, in no acute distress. HEAD: Normocephalic and atraumatic. EENT:Examination benign except for inability to examine her eyes because she kept her eyes shut and would not open them. NECK: No neck rigidity was observed. NEUROLOGICAL EXAMINATION: MENTAL STATUS EXAMINATION: She was awake, but not alert. She was unable to cooperate for further mental status testing. SPEECH: She was dysarthric. LANGUAGE: She had problems with comprehension, repetition, and expression of language and spoke in a jargon. CRANIAL NERVES EXAMINATION: II: Could not be tested because she kept her eyes closed and was significantly negativistic when attempts were made to open her eyes. III, IV & : Could not be tested because she kept her eyes shut. V & VII: The corneal reflexes were present, but diminished on the left side compared to the right. In addition, she also had flattening of the left nasolabial fold. VIII: She seemed to be able to hear. IX & X: The gag reflex was present, but diminished. XI: The sternocleidomastoids and trapezii did function. XII: The tongue was in the midline. MOTOR SYSTEM: The tone was increased in all four extremities with a combination of spasticity and gegenhalten. Examination of muscle mass revealed generalized muscle wasting. Examination of power was impossible to perform on individual muscle groups. She was quadriparetic with the left side being weaker than the right and the lower extremities being weaker than the upper extremities. SENSORY EXAMINATION: She responded appropriately to deep pain. She was unable to cooperate for other sensory modalities. REFLEXES: 0 at the biceps, triceps, brachioradialis, knees, and ankles. The plantar responses were equivocal bilaterally. COORDINATION, STANCE & GAIT: Could not be tested. Impression/Recommendations Diagnostic Impression 1. Ms Elvie Hunt is an 89-year-old, black lady, of unknown handedness, who does have a past history of hypertension, chronic obstructive pulmonary disease, dementia of unknown type, and protein-calorie malnutrition, who lives in a mcc. She was hospitalized for an alteration in her mental state. 2. She is calm today. As per Dr Britton her baseline is being calm and unable to communicate in a meaningful manner. She is unable to tell me how she feels. She follows a few non-verbal commands but cannot follow verbal commands. She continues to be cognitively impoverished. She continues to be motorically challenged. 3. On neurological examination at this time, she is awake but not alert. She is unable to cooperate for further mental status testing. She is significantly dysarthric and aphasic. She keeps her eyes closed and is quite negativistic when attempts are made to open her eyes. She has left greater than right quadriparesis associated with spasticity in all four extremities and in addition gegenhalten. The deep tendon reflexes are globally absent and her plantar responses are equivocal. 4. Laboratory data on my initial evaluation revealed that she was anemic with a hemoglobin of 11.1 G. The chemistry panel revealed that she was hypokalemic with a potassium of 2.9. The BUN was low at 6 and creatinine was low at 0.5. Her phosphorus was low at 2.4. Magnesium was low at 1.7. Her AST was elevated at 44. Her ammonia was less than 10. Her CRP was elevated at 2.3. Her proBNP was elevated at 1425. Her Albumin was low at 2.8. Her B12 level was normal at 853. Her folate was normal at 16.7. Her TSH was normal at 0.62. Her urinalysis revealed a negative leukocyte esterase. Unfortunately, there is no cell count performed on the urine. Further laboratory tests were benign. 5. The CT of the brain done on 06/06/19 revealed low-attenuation in the right occipital and posterior parietal lobes with slight mass effect manifested by attenuation of the adjacent sulci, the appearance is highly suggestive of a nonhemorrhagic late subacute occipital/parietal infarct. 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 Extensive chronic deep white matter microvascular ischemic changes noted. 6. The patient's history and neurological examination are most consistent with a significant decline in her mental state. She also exhibits significant cognitive and motor dysfunction. She does have focal neurological findings with her left body affected more than the right and the lower extremities affected more than the upper extremities. The patient has an underlying primary degenerative dementia and superadded cerebrovascular disease. She may now have a superimposed encephalopathy which may be due to a recent right parieto- occipital infarct. Recommendations 1. Continue present management. 2. Treatment of behavioral problems with neuroleptics rather than benzodiazepines. 3. Await EEG to evaluate the patient for the degree and type of cerebral dysfunction. 4. Observe. Michael Lovett M.D., M.S.P.H. Michael Lovett MD Jun 06, 2019 13:55
--- NOTE | 2019-06-06 14:18 | NUR ---
SWALLOW/SPEECH THERAPY NOTE: REFERRED BY DR HSU FOR A SWALLOW EVALUATION, TOO LETHARGIC YESTERDAY. SEE FULL REPORT IN ST CARE ACTIVITY SECTION. DYSPHAGIA RISK FACTORS FOR THIS 89 Y.O. 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 H/O dementia, op dysphagia, COPD, ENCEPHALOPATHY, PROTEIN-ERIN MALNUTRTION, CP, AF. NO POLST NOR AD IN CHART REGARDING TF PREFERENCES GRANDDTRS NOT SURE ABOUT FEEDING TUBE AT THIS TIME. AT [facility] SEEN FOR SWALLOW EVAL 10/2018 AND HAD DYSPHAGIA BUT APPEARED TO TOLERATE PUREED AND NECTAR THICK LIQUIDS MORE SAFELY. SINCE PT REFUSED NECTAR THICK LIQUIDS, PATIENT UPGRADED TO THIN LIQUIDS AND HAD GOOD INTAKE PRIOR TO D/C. MOD BARIUM SWALLOW STUDY WAS ORDERED BUT NOT COMPLETED DUE TO SCHEDULE CONFLICTS. AT SNF ON A NINI VEGAN PUREED AND THIN LIQUID DIET (THOUGH DISLIKES IT) NOW NPO EXCEPT ICE CHIPS AND MEDS NONE GIVEN PER JEWELSMITH SAID SHE HAS BEEN EATING WELL AND HAS BEEN ON PUREED DIET FOR A LONG TIME. PRESENTLY THE PATIENT IS UNABLE TO TOLERATE PO TRIALS DUE TO NOT ALERT (PER RNALFONSO, SHE MAY HAVE HAD ATIVAN MORE RECENTLY SINCE SHE WAS AGITATED AND TRYING TO GET OUT OF THE BED. PER FAMILY, THE PATIENT DID NOT HAVE PROBLEMS WITH THIN LIQUIDS AND PUREED FOOD AT THE SNF BUT DISLIKED NECTAR THICK LIQUIDS (SO UPGRADED TO THIN). PT HAS A H/O COUGHING W/O PO (HAS COPD BUT NO H/O SMOKING PER FAMILY). FAMILY DID NOT HAVE A LOT OF INFORMATION ON HER DEMENTIA DIAGNOSIS BUT PATIENT WAS ABLE TO COMMUNICATE HER NEEDS SO HER STAGE IS NOT ADVANCED AND SHE LIKES TO EAT AND HAS A GOOD APPETITE. EDENTULOUS NO DENTURES AND HAS SPONTANEOUS COUGH W/O PO FOR A LONG TIME PER FAMILY. DID NOT WAKE UP NOR OPEN EYES AND ON ROOM AIR. INITIAL IMPRESSIONS: NOT ALERT FOR PO INTAKE (DAY 3 NO PO) HIGH RISK FOR PERSISTENT AND WORSENED (HAD LATE SUBACUTE CVA AND H/O MULTIPLE PRIOR CVAS) DYSPHAGIA AND SILENT ASPIRATION RECOMMENDATIONS: CONSERVATIVELY, CONSIDER NGT SMALL 12 GERMAN IF PT IS STILL NOT ALERT FOR PO INTAKE OVER THE WEEKEND AND IF FAMILY IS RECEPTIVE. MODIFIED BARIUM SWALLOW STUDY TO FURTHER ASSESS SWALLOW, DETERMINE SILENT ASP RISK AND ETIOLOGY, AND ATTEMPT TRIAL TX TECHNIQUES. DYSPHAGIA MANAGEMENT AND TX AND COG-COM EVAL/TX D/W GREGG HAMILTON AND FAMILY AND LEFT MESSAGE WITH DR HSU. ADDENDUM: PATIENT MORE ALERT IN AFTERNOON. SINCE RN SAID SHE WAS UNABLE TO GET NGT IN ON FOUR ATTEMPTS, GAVE HER PO TRIALS OF NECTAR THICK LIQUIDS. S/S OF A MILD-MODERATE OROPHARYNGEAL DYSPHAGIA WITH MILD-MODERATE INCREASED TRANSIT TIMES. PATIENT SWALLOWED 2 TIMES WITH 3-5 SECOND DELAYS BUT OVERT S/S OF ASPIRATION. WILL HOLD ON PUREED PO TRIALS SINCE SHE TAKES SO LONG TO SWALLOW NECTAR THICK LIQUID TSP LEVEL. MILD DECREASE IN HYOLARYNGEAL EXCURSION. HAS MIN TEETH AND NO DENTURES. PLAN: HOLD OFF ON NGT FOR NOW, INITIATE LIQUIFIED PUREED LIKE NECTAR THICK SOUP DIET (NO THIN LIQUIDS) AND TSP ONLY VEGAN NINI PER PRIOR SETTING. SEND HIGH ERIN SUP AND COMPLETE CALORIE COUNT PER RD
--- NOTE | 2019-06-06 14:48 | NUR ---
NURSE NOTES: Attempted to place NGT. Patient resistive to placement. Patient awake and alert. Patient vocalizing resistance. Patient alert enough for PO trial. ST notified.
[2019-06-06 16:00] VITALS: BP 152/75
--- NOTE | 2019-06-06 19:30 | NUR ---
NURSE NOTES: RECEIVED PATIENT LYING IN BED, EYES CLOSED, UNABLE TO EFFECTIVELY COMMUNICATE NEEDS, NO SIGNS AND SYMPTOMS OF ACUTE CARDIO RESPIRATORY DISTRESS/SHORTNESS OF BREATH, NO PERIPHERAL EDEMA NOTED. NO SIGNS AND SYMPTOMS OF PAIN, NO FACIAL GRIMACING NOTED. ABDOMEN SOFT/NON TENDER/AUDIBLE BOWEL SOUNDS,, NO N/V/D. PM CARE PROVIDED, REPOSITIONED FOR COMFORT/PRESSURE RELIEF, SKIN INTACT/PROPHYLAXIS TREATMENT ONLY. SIDE RAILS UP X3/BED IN LOWEST POSITION FOR SAFETY. CALL LIGHT WITHIN REACH. FREQUENT ROUNDING FOR SAFETY/NEEDS. NAD.
--- NOTE | 2019-06-06 19:55 | NUR ---
HAND-OFF: Report given to LUCILA Umaña.
[2019-06-06 20:00] VITALS: BP 126/81
[2019-06-07] VITALS: BP 110/63
[2019-06-07 04:00] VITALS: BP 97/61
--- NOTE | 2019-06-07 06:32 | NUR ---
NURSE NOTES: RESTED WELL, NO SIGNIFICANT CHANGE OF CONDITION NOTED THROUGHOUT THE NIGHT. SAFETY MAINTAINED. NAD.
--- NOTE | 2019-06-07 07:07 | NUR ---
HAND-OFF: Report given to GREGG KAISER.
--- NOTE | 2019-06-07 07:08 | NUR ---
NURSE NOTES: Received report from GREGG Ty. Patient is resting in bed, sleeping in stable condition with no signs and symptoms of acute distress at this time. Breathing is unlabored with 2 liter Nasal cannula. Bed is in lowest position with two side rails up, brakes engaged . Call light and bed side table are within reach. Patient will have EEG this morning. Will continue plan of care.
[2019-06-07 08:00] VITALS: BP 118/69
[2019-06-07] MEDS: Aspirin Baby 81mg ORAL SCH (09:26)
[2019-06-07] MEDS: Docusate 100mg cap ORAL SCH ×3 (09:27→17:40)
[2019-06-07] MEDS: Heparin 5000 units/ml inj SUBQ SCH ×2 (09:28→21:19)
[2019-06-07] MEDS: cefTRIAXone 1 GM in D5W 55 ML IVPB SCH (09:31)
[2019-06-07 11:23] LABS: BASOPHILS % (AUTO) 0.9 % (0.0-2.0); EOSINOPHILS % (AUTO) 16.4 % (0.0-3.0); HEMATOCRIT 36.5 % (37.0-47.0); HEMOGLOBIN 11.2 G/DL (12.0-16.0); LYMPHOCYTES % (AUTO) 24.3 % (20.0-45.0); MEAN CORPUSCULAR VOLUME 91 FL (80-99); MONOCYTES % (AUTO) 13.2 % (1.0-10.0); NEUTROPHILS % (AUTO) 45.1 % (45.0-75.0); PLATELET COUNT 242 K/UL (150-450); RED BLOOD COUNT 4.02 M/UL (4.20-5.40); RED CELL DISTRIBUTION WIDTH 14.7 % (11.6-14.8); WHITE BLOOD COUNT 4.1 K/UL (4.8-10.8)
[2019-06-07] MEDS: D5 1/2NS 1,000 ML IV SCH (11:38)
[2019-06-07 11:55] LABS: ANION GAP 7 mmol/L (5-15); BLOOD UREA NITROGEN 3 mg/dL (7-18); CALCIUM 8.5 MG/DL (8.5-10.1); CARBON DIOXIDE 26 MMOL/L (21-32); CHLORIDE 104 MMOL/L (98-107); CREATININE 0.5 MG/DL (0.55-1.30); POTASSIUM 3.5 MMOL/L (3.5-5.1); SODIUM 137 MMOL/L (136-145)
[2019-06-07 11:59] LABS: ALANINE AMINOTRANSFERASE 14 U/L (12-78); ALBUMIN 2.5 G/DL (3.4-5.0); ALBUMIN/GLOBULIN RATIO 0.7 (1.0-2.7); ALKALINE PHOSPHATASE 84 U/L (46-116); ASPARTATE AMINO TRANSFERASE 35 U/L (15-37); BILIRUBIN,TOTAL 0.4 MG/DL (0.2-1.0); PHOSPHORUS 2.4 MG/DL (2.5-4.9)
[2019-06-07 12:00] VITALS: BP 101/50
--- NOTE | 2019-06-07 14:01 | Neurology Progress Note ---
Interim History Interim History Interim History Ms. Hunt was sleeping when I went to see her. She could be aroused. She said she felt "good." She is calm today. She follows a few non-verbal commands but cannot follow verbal commands. She continues to be cognitively impoverished. She continues to be motorically challenged. Review of Systems Neuro Review of Systems Unable to obtain. Objective Physical Exam Last Vital Signs Date Time Temp Pulse Resp B/P (MAP) Pulse Ox O2 Delivery O2 Flow Rate FiO2 06/07/19 12:00 98.3 80 18 101/50 (67) 96 06/07/19 09:00 Room Air Laboratory Tests Test 06/07/19 10:30 White Blood Count 4.1 K/UL (4.8-10.8) L Red Blood Count 4.02 M/UL (4.20-5.40) L Hemoglobin 11.2 G/DL (12.0-16.0) L Hematocrit 36.5 % (37.0-47.0) L Mean Corpuscular Volume 91 FL (80-99) Mean Corpuscular Hemoglobin 27.8 PG (27.0-31.0) Mean Corpuscular Hemoglobin Concent 30.6 G/DL (32.0-36.0) L Red Cell Distribution Width 14.7 % (11.6-14.8) Platelet Count 242 K/UL (150-450) Mean Platelet Volume 6.9 FL (6.5-10.1) Neutrophils (%) (Auto) 45.1 % (45.0-75.0) Lymphocytes (%) (Auto) 24.3 % (20.0-45.0) Monocytes (%) (Auto) 13.2 % (1.0-10.0) H Eosinophils (%) (Auto) 16.4 % (0.0-3.0) H Basophils (%) (Auto) 0.9 % (0.0-2.0) Sodium Level 137 MMOL/L (136-145) Potassium Level 3.5 MMOL/L (3.5-5.1) Chloride Level 104 MMOL/L (98-107) Carbon Dioxide Level 26 MMOL/L (21-32) Anion Gap 7 mmol/L (5-15) Blood Urea Nitrogen 3 mg/dL (7-18) L Creatinine 0.5 MG/DL (0.55-1.30) L Estimat Glomerular Filtration Rate mL/min (>60) Glucose Level 97 MG/DL (74-106) Calcium Level 8.5 MG/DL (8.5-10.1) Phosphorus Level 2.4 MG/DL (2.5-4.9) L Magnesium Level 1.7 MG/DL (1.8-2.4) L Total Bilirubin 0.4 MG/DL (0.2-1.0) Aspartate Amino Transf (AST/SGOT) 35 U/L (15-37) Alanine Aminotransferase (ALT/SGPT) 14 U/L (12-78) Alkaline Phosphatase 84 U/L (46-116) C-Reactive Protein, Quantitative 5.4 mg/dL (0.00-0.90) H Total Protein 6.0 G/DL (6.4-8.2) L Albumin 2.5 G/DL (3.4-5.0) L Globulin 3.5 g/dL Albumin/Globulin Ratio 0.7 (1.0-2.7) L Neurologic Exam Objective PHYSICAL EXAMINATION: GENERAL: She is a well-developed, lean and cachectic looking black lady, lying in bed, calmly, in no acute distress. HEAD: Normocephalic and atraumatic. EENT: Examination benign except for inability to examine her eyes because she kept her eyes shut and would not open them. NECK: No neck rigidity was observed. NEUROLOGICAL EXAMINATION: MENTAL STATUS EXAMINATION: She was awake and more alert. She was unable to cooperate for further mental status testing. SPEECH: She was dysarthric. LANGUAGE: She had problems with comprehension, repetition, and expression of language and spoke in a jargon. CRANIAL NERVES EXAMINATION: II: Could not be tested because she kept her eyes closed and was significantly negativistic when attempts were made to open her eyes. III, IV & : Could not be tested because she kept her eyes shut. V & VII: The corneal reflexes were present, but diminished on the left side compared to the right. In addition, she also had flattening of the left nasolabial fold. VIII: She seemed to be able to hear. IX & X: The gag reflex was present, but diminished. XI: The sternocleidomastoids and trapezii did function. XII: The tongue was in the midline. MOTOR SYSTEM: The tone was increased in all four extremities with a combination of spasticity and gegenhalten. Examination of muscle mass revealed generalized muscle wasting. Examination of power was impossible to perform on individual muscle groups. She was quadriparetic with the left side being weaker than the right and the lower extremities being weaker than the upper extremities. SENSORY EXAMINATION: She responded appropriately to deep pain. She was unable to cooperate for other sensory modalities. REFLEXES: 0 at the biceps, triceps, brachioradialis, knees, and ankles. The plantar responses were equivocal bilaterally. COORDINATION, STANCE & GAIT: Could not be tested. Impression/Recommendations Diagnostic Impression 1. Ms Elvie Hunt is an 89-year-old, black lady, of unknown handedness, who does have a past history of hypertension, chronic obstructive pulmonary disease, dementia of unknown type, and protein-calorie malnutrition, who lives in a [facility]. She was hospitalized for an alteration in her mental state. 2. She was sleeping when I went to see her. She could be aroused. She said she felt "good." She is calm today. She follows a few non-verbal commands but cannot follow verbal commands. She continues to be cognitively impoverished. She continues to be motorically challenged. As per Dr Britton her baseline is being calm and unable to communicate in a meaningful manner. 3. On neurological examination at this time, she is awake and more alert. She is unable to cooperate for further mental status testing. She is significantly dysarthric and aphasic. She keeps her eyes closed and is quite negativistic when attempts are made to open her eyes. She has left greater than right quadriparesis associated with spasticity in all four extremities and in addition gegenhalten. The deep tendon reflexes are globally absent and her plantar responses are equivocal. 4. Laboratory data on my initial evaluation revealed that she was anemic with a hemoglobin of 11.1 G. The chemistry panel revealed that she was hypokalemic with a potassium of 2.9. The BUN was low at 6 and creatinine was low at 0.5. Her phosphorus was low at 2.4. Magnesium was low at 1.7. Her AST was elevated at 44. Her ammonia was less than 10. Her CRP was elevated at 2.3. Her proBNP was elevated at 1425. Her Albumin was low at 2.8. Her B12 level was normal at 853. Her folate was normal at 16.7. Her TSH was normal at 0.62. Her urinalysis revealed a negative leukocyte esterase. Unfortunately, there is no cell count performed on the urine. Further laboratory tests were benign. 5. The CT of the brain done on 06/06/19 revealed low-attenuation in the right occipital and posterior parietal lobes with slight mass effect manifested by attenuation of the adjacent sulci, the appearance is highly suggestive of a nonhemorrhagic late subacute occipital/parietal infarct. 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 Extensive chronic deep white matter microvascular ischemic changes noted. 6. The patient's history and neurological examination are most consistent with a significant decline in her mental state. She also exhibits significant cognitive and motor dysfunction. She does have focal neurological findings with her left body affected more than the right and the lower extremities affected more than the upper extremities. The patient has an underlying primary degenerative dementia and superadded cerebrovascular disease. She may now have a superimposed encephalopathy which may be due to a recent right parieto- occipital infarct. Recommendations 1. Continue present management. 2. Treatment of behavioral problems with neuroleptics rather than benzodiazepines. 3. Will review EEG now. 4. Observe. Michael Lovett M.D., M.S.P.H. Michael Lovett MD Jun 07, 2019 14:01
[2019-06-07 16:00] VITALS: BP 141/73
[2019-06-07] MEDS ORDERED: Potassium Phosphate 20 MM in NS 275 ML IV ONE (16:00)
--- NOTE | 2019-06-07 16:00 | General Progress Note ---
Assessment/Plan Problem List: (1) Lactic acid acidosis Assessment & Plan: ? UTI ICD Codes: E87.2 - Acidosis SNOMED: 81479743 (2) Failure to thrive SNOMED: 71526071 (3) Acute encephalopathy ICD Codes: G93.40 - Encephalopathy, unspecified SNOMED: 60773327, 220824076 (4) Dementia with behavioral disturbance ICD Codes: F03.91 - Unspecified dementia with behavioral disturbance SNOMED: 2651555094218 (5) Multi-infarct dementia ICD Codes: F01.50 - Vascular dementia without behavioral disturbance SNOMED: 82721353 Assessment/Plan: urine culture requested never done- reordered Per orders Neuro appreciated ST eval Rocephin mag and phos supp CT: Low-attenuation in the right occipital and posterior parietal lobes with slight mass effect manifested by attenuation of the adjacent sulci. 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 Subjective ROS Limited/Unobtainable: No Constitutional: Reports: other - calm Allergies: Coded Allergies: No Known Allergies (Unverified , 06/04/19) Objective Last 24 Hour Vital Signs Date Time Temp Pulse Resp B/P (MAP) Pulse Ox O2 Delivery O2 Flow Rate FiO2 06/07/19 12:00 98.3 80 18 101/50 (67) 96 06/07/19 12:00 79 06/07/19 09:00 Room Air 06/07/19 08:00 98.0 81 18 118/69 (85) 99 06/07/19 08:00 90 06/07/19 04:00 97.2 69 18 97/61 (73) 98 06/07/19 04:00 69 06/07/19 00:00 98.3 76 18 110/63 (79) 99 06/07/19 00:00 76 06/06/19 21:24 Room Air 06/06/19 20:00 97.4 78 16 126/81 (96) 97 06/06/19 20:00 78 06/06/19 16:00 109 06/06/19 16:00 97.8 73 20 152/75 (100) 94 Intake and Output 06/06/19 06/07/19 19:00 07:00 Intake Total 250 ml 610 ml Balance 250 ml 610 ml Intake Oral 200 ml 60 ml IV Total 50 ml 550 ml # Voids 3 3 # Bowel Movements 1 Laboratory Tests 06/07/19 10:30: White Blood Count 4.1L, Red Blood Count 4.02L, Hemoglobin 11.2L, Hematocrit 36.5L, Mean Corpuscular Volume 91, Mean Corpuscular Hemoglobin 27.8, Mean Corpuscular Hemoglobin Concent 30.6L, Red Cell Distribution Width 14.7, Platelet Count 242, Mean Platelet Volume 6.9, Neutrophils (%) (Auto) 45.1, Lymphocytes (%) (Auto) 24.3, Monocytes (%) (Auto) 13.2H, Eosinophils (%) (Auto) 16.4H, Basophils (%) (Auto) 0.9, Sodium Level 137, Potassium Level 3.5, Chloride Level 104, Carbon Dioxide Level 26, Anion Gap 7, Blood Urea Nitrogen 3L , Creatinine 0.5L, Estimat Glomerular Filtration Rate , Glucose Level 97, Calcium Level 8.5, Phosphorus Level 2.4L, Magnesium Level 1.7L, Total Bilirubin 0.4, Aspartate Amino Transf (AST/SGOT) 35, Alanine Aminotransferase (ALT/SGPT) 14, Alkaline Phosphatase 84, C-Reactive Protein, Quantitative 5.4H, Total Protein 6.0L, Albumin 2.5L, Globulin 3.5, Albumin/Globulin Ratio 0.7L Height (Feet): 5 Height (Inches): 5.00 Weight (Pounds): 126 General Appearance: no apparent distress Cardiovascular: normal rate Respiratory/Chest: lungs clear Abdomen: soft Matthew Britton MD Jun 07, 2019 16:00
--- NOTE | 2019-06-07 16:05 | NUR ---
NURSE NOTES: Patient is getting so agitated and tried to puuled out her IV and heart monitor. Called Dr. Britton and asked for PRN medication.
[2019-06-07] MEDS ORDERED: Haloperidol 5mg/ml Inj IM PRN (16:15)
[2019-06-07] MEDS ORDERED: Haloperidol 5mg/ml Inj IM SCH (16:15)
--- NOTE | 2019-06-07 19:15 | NUR ---
NURSE NOTES: Received report from GREGG Hennessy,patient in stable condition,AO x2, able to make needs known to a degree, sleeping in bed, IV site right forearm G22,bed lowest position,brakes on,side rail up X3, will continue to monitor and reasess.
--- NOTE | 2019-06-07 19:33 | NUR ---
HAND-OFF: Report given to GREGG Garcia.
[2019-06-07 20:00] VITALS: BP 126/58
--- NOTE | 2019-06-07 20:45 | Electroencephalogram ---
DATE OF PROCEDURE: 06/07/2019 REQUESTING PHYSICIAN: Matthew Britton M.D. HISTORY: This EEG was performed on an 89-year-old lady with a history of significant cognitive problems who was hospitalized for an alteration in mental state. She demonstrates significant bilateral cerebral dysfunction and the purpose of this EEG was to evaluate the patient for the degree and type of cerebral dysfunction. TECHNICAL NOTE: This EEG was performed on a [employer] with electrodes placed on the scalp according to the International 10-20 system. [id number] and [id number] montages were used. The EEG was technically satisfactory and was performed in the awake, drowsy, and sleep states. OBSERVATIONS: In the best awake state, the background activity consisted of 6-7 Hz posteriorly predomiant rhythmic theta activity. Drowsiness was characterized by irregular 4-5 Hz theta with intermixed delta frequencies. Stage II sleep was characterized by further slowing of the background in the delta and theta range, the presence of vertex waves, and 12 Hz sleep spindles. No definite focal abnormalities or epileptiform discharges were seen. IMPRESSION: This is an abnormal EEG characterized by slowing of the background in the 6-7 Hz theta range in the best awake state. COMMENT: This study is consistent with an encephalopathy of a moderate degree. Michael Lovett M.D., M.S.P.H. DR: RAI JOB#: [id number] MTDD
[2019-06-08] VITALS: BP 147/66
[2019-06-08 01:49] LABS: APPEARANCE,URINE CLEAR; BILIRUBIN, URINE NEGATIVE (NEGATIVE); COLOR,URINE PALE YELLOW; GLUCOSE, URINE (UA) NEGATIVE (NEGATIVE); KETONES,URINE NEGATIVE (NEGATIVE); LEUKOCYTE ESTERASE ,URINE 2+ (NEGATIVE); NITRITE,URINE NEGATIVE (NEGATIVE); PH,URINE 6.5 (4.5-8.0); PROTEIN,URINE NEGATIVE (NEGATIVE); UROBILINOGEN,URINE NORMAL MG/DL (0.0-1.0)
[2019-06-08 04:00] VITALS: BP 106/59
[2019-06-08] MEDS: D5 1/2NS 1,000 ML IV SCH (06:10)
--- NOTE | 2019-06-08 07:15 | NUR ---
Report given to GREGG Hennessy, patient in stable condition,plan of care endorsed.
--- NOTE | 2019-06-08 07:20 | NUR ---
NURSE NOTES: Received report from Radha/ GREGG Benitez. Patient is resting in bed, in stable condition with no signs and symptoms of acute distress at this time. Breathing in room air. Bed is in lowest position with three side rails up, brakes engaged . Call light and bed side table are within reach. Will continue plan of care.
[2019-06-08 07:59] VITALS: BP 127/65
[2019-06-08] MEDS: Aspirin Baby 81mg ORAL SCH (08:07)
[2019-06-08] MEDS: Heparin 5000 units/ml inj SUBQ SCH ×2 (08:08→20:44)
[2019-06-08] MEDS: Docusate 100mg cap ORAL SCH ×3 (08:08→17:46)
[2019-06-08] MEDS: cefTRIAXone 1 GM in D5W 55 ML IVPB SCH (08:09)
[2019-06-08 12:00] VITALS: BP 91/62
--- NOTE | 2019-06-08 14:10 | Neurology Progress Note ---
Interim History Interim History Interim History Ms. Hunt feels better. She is finally verbal and makes some sense when she talks. She is oriented to self only. 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 She continues to be cognitively impoverished. She continues to be motorically challenged. Review of Systems Neuro Review of Systems Benign. Objective Physical Exam Last Vital Signs Date Time Temp Pulse Resp B/P (MAP) Pulse Ox O2 Delivery O2 Flow Rate FiO2 06/08/19 12:00 97.4 67 20 91/62 (72) 96 06/08/19 09:00 Room Air Laboratory Tests Test 06/08/19 01:00 Urine Color Pale yellow Urine Appearance Clear Urine pH 6.5 (4.5-8.0) Urine Specific [place] 1.010 (1.005-1.035) Urine Protein Negative (NEGATIVE) Urine Glucose (UA) Negative (NEGATIVE) Urine Ketones Negative (NEGATIVE) Urine Blood 2+ (NEGATIVE) H Urine Nitrite Negative (NEGATIVE) Urine Bilirubin Negative (NEGATIVE) Urine Urobilinogen Normal MG/DL (0.0-1.0) Urine Leukocyte Esterase 2+ (NEGATIVE) H Urine RBC 0-2 /HPF (0 - 2) Urine WBC 2-4 /HPF (0 - 2) Urine Squamous Epithelial Cells Moderate /LPF (NONE/OCC) H Urine Bacteria Few /HPF (NONE) Neurologic Exam Objective PHYSICAL EXAMINATION: GENERAL: She is a well-developed, lean and cachectic looking black lady, lying in bed, calmly, in no acute distress. HEAD: Normocephalic and atraumatic. EENT: Examination benign except for inability to examine her eyes because she kept her eyes shut and would not open them. NECK: No neck rigidity was observed. NEUROLOGICAL EXAMINATION: MENTAL STATUS EXAMINATION: She was awake and more alert. She was oriented to self only. She was unable to cooperate for further mental status testing. SPEECH: She was dysarthric. LANGUAGE: She had problems with comprehension, repetition, and expression of language but was able to make some sense when she talked. 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 III, IV & : The external ocular movements were full. The pupils were 3 mm and non-reactive. V & VII: The corneal reflexes were present, but diminished on the left side compared to the right. In addition, she also had flattening of the left nasolabial fold. VIII: She seemed to be able to hear. IX & X: The gag reflex was present, but diminished. XI: The sternocleidomastoids and trapezii did function. XII: The tongue was in the midline. MOTOR SYSTEM: The tone was increased in all four extremities with a combination of spasticity and gegenhalten. Examination of muscle mass revealed generalized muscle wasting. Examination of power was impossible to perform on individual muscle groups. She was quadriparetic with the left side being weaker than the right and the lower extremities being weaker than the upper extremities. SENSORY EXAMINATION: She responded appropriately to deep pain. She was unable to cooperate for other sensory modalities. REFLEXES: 0 at the biceps, triceps, brachioradialis, knees, and ankles. The plantar responses were equivocal bilaterally. COORDINATION, STANCE & GAIT: Could not be tested. Impression/Recommendations Diagnostic Impression 1. Ms Elvie Hunt is an 89-year-old, black lady, of unknown handedness, who does have a past history of hypertension, chronic obstructive pulmonary disease, dementia of unknown type, and protein-calorie malnutrition, who lives in a sn[facility]. She was hospitalized for an alteration in her mental state. 2. She feels better. She is finally verbal and makes some sense when she talks. She is oriented to self only. 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 She continues to be cognitively impoverished. She continues to be motorically challenged. 3. On neurological examination at this time, she is awake and more alert. She is oriented to self only. She iss unable to cooperate for further mental status testing. She is dysarthric but can say a few words that cam be understood. 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 The deep tendon reflexes are globally absent and her plantar responses are equivocal. 4. Laboratory data on my initial evaluation revealed that she was anemic with a hemoglobin of 11.1 G. The chemistry panel revealed that she was hypokalemic with a potassium of 2.9. The BUN was low at 6 and creatinine was low at 0.5. Her phosphorus was low at 2.4. Magnesium was low at 1.7. Her AST was elevated at 44. Her ammonia was less than 10. Her CRP was elevated at 2.3. Her proBNP was elevated at 1425. Her Albumin was low at 2.8. Her B12 level was normal at 853. Her folate was normal at 16.7. Her TSH was normal at 0.62. Her urinalysis revealed a negative leukocyte esterase. Unfortunately, there is no cell count performed on the urine. Further laboratory tests were benign. 5. The CT of the brain done on 06/06/19 revealed low-attenuation in the right occipital and posterior parietal lobes with slight mass effect manifested by attenuation of the adjacent sulci, the appearance is highly suggestive of a nonhemorrhagic late subacute occipital/parietal infarct. 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 Extensive chronic deep white matter microvascular ischemic changes noted. 6. The EEG done on 06/07/19 revealed a moderate encephalopathy. 7. The patient's history and neurological examination are most consistent with a significant decline in her mental state. She also exhibits significant cognitive and motor dysfunction. She does have focal neurological findings with her left body affected more than the right and the lower extremities affected more than the upper extremities. The patient has an underlying primary degenerative dementia and superadded cerebrovascular disease. She may now have a superimposed encephalopathy which may be due to a recent right parieto- occipital infarct. Recommendations 1. Continue present management. 2. Treatment of behavioral problems with neuroleptics rather than benzodiazepines. 3. Observe. Michael Lovett M.D., M.S.P.H. Michael Lovett MD Jun 08, 2019 14:10
[2019-06-08 16:00] VITALS: BP 116/71
--- NOTE | 2019-06-08 17:31 | General Progress Note ---
Assessment/Plan Problem List: (1) Lactic acid acidosis Assessment & Plan: ? UTI ICD Codes: E87.2 - Acidosis SNOMED: 43909571 (2) Failure to thrive SNOMED: 69496528 (3) Acute encephalopathy ICD Codes: G93.40 - Encephalopathy, unspecified SNOMED: 71433563, 081358086 (4) Dementia with behavioral disturbance ICD Codes: F03.91 - Unspecified dementia with behavioral disturbance SNOMED: 9590316209599 (5) Multi-infarct dementia ICD Codes: F01.50 - Vascular dementia without behavioral disturbance SNOMED: 89171698 Status: stable Assessment/Plan: urine culture requested never done- reordered start midodrine albumin bolus Per orders Neuro appreciated ST eval Rocephin mag and phos supp CT: Low-attenuation in the right occipital and posterior parietal lobes with slight mass effect manifested by attenuation of the adjacent sulci. 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 Subjective ROS Limited/Unobtainable: No Constitutional: Reports: other - more responsive Allergies: Coded Allergies: No Known Allergies (Unverified , 06/04/19) Objective Last 24 Hour Vital Signs Date Time Temp Pulse Resp B/P (MAP) Pulse Ox O2 Delivery O2 Flow Rate FiO2 06/08/19 16:00 94 06/08/19 16:00 97.9 94 22 116/71 (86) 96 06/08/19 12:00 97.4 67 20 91/62 (72) 96 06/08/19 12:00 73 06/08/19 09:00 Room Air 06/08/19 08:00 75 06/08/19 07:59 97.5 69 20 127/65 (85) 94 06/08/19 04:00 97.9 70 18 106/59 (75) 96 06/08/19 04:00 68 06/08/19 00:00 69 06/08/19 00:00 96.8 69 18 147/66 (93) 95 06/07/19 21:00 Room Air 06/07/19 20:00 97.6 85 18 126/58 (80) 95 06/07/19 20:00 82 Intake and Output 06/07/19 06/08/19 19:00 07:00 Intake Total 390 ml 634 ml Balance 390 ml 634 ml Intake Oral 340 ml IV Total 50 ml 634 ml # Voids 4 3 Laboratory Tests 06/08/19 01:00: Urine Color Pale yellow, Urine Appearance Clear, Urine pH 6.5, Urine Specific [place] 1.010, Urine Protein Negative, Urine Glucose (UA) Negative, Urine Ketones Negative, Urine Blood 2+H, Urine Nitrite Negative, Urine Bilirubin Negative, Urine Urobilinogen Normal, Urine Leukocyte Esterase 2+H, Urine RBC 0-2 , Urine WBC 2-4, Urine Squamous Epithelial Cells ModerateH, Urine Bacteria Few Height (Feet): 5 Height (Inches): 5.00 Weight (Pounds): 126 General Appearance: no apparent distress Cardiovascular: normal rate Respiratory/Chest: lungs clear Abdomen: soft Matthew Britton MD Jun 08, 2019 17:31
--- NOTE | 2019-06-08 19:00 | NUR ---
NURSE NOTES: Received report from GREGG Hennessy,patient in stable condition, AOx2, able to make needs known to a degree. IV site on right forearm G22,asymptomatic,intact,patent. Bed lowest position,brakes on, side rail upx3,call light within reach, will continue to monitor and reassess
--- NOTE | 2019-06-08 19:25 | NUR ---
HAND-OFF: Report given to Radha/ GREGG Benitez.
[2019-06-08 20:00] VITALS: BP 140/78
[2019-06-09] VITALS: BP 134/81
[2019-06-09 04:00] VITALS: BP 149/77
--- NOTE | 2019-06-09 07:15 | NUR ---
NURSE NOTES: Received report from GREGG Spears. Patient is in bed and asleep. AAOx2. Patient on steward/stewardess banquet. Patient is breathing even and unlabored. No respiratory distress noted. IV site on right forearm g22 asymptomatic, intact, and patent. Bed lowest position,brakes on, side rail upx3,call light within reach, will continue to monitor and reassess.
[2019-06-09 07:17] LABS: BASOPHILS % (AUTO) 1.6 % (0.0-2.0); EOSINOPHILS % (AUTO) 11.8 % (0.0-3.0); HEMATOCRIT 36.1 % (37.0-47.0); HEMOGLOBIN 11.5 G/DL (12.0-16.0); MEAN CORPUSCULAR VOLUME 90 FL (80-99); MONOCYTES % (AUTO) 12.9 % (1.0-10.0); NEUTROPHILS % (AUTO) 47.6 % (45.0-75.0); PLATELET COUNT 241 K/UL (150-450); RED BLOOD COUNT 4.01 M/UL (4.20-5.40); RED CELL DISTRIBUTION WIDTH 14.9 % (11.6-14.8); WHITE BLOOD COUNT 4.4 K/UL (4.8-10.8)
--- NOTE | 2019-06-09 07:20 | NUR ---
HAND-OFF: Report given to GREGG Silveira,patient in stable condition, plan of care endorsed.
[2019-06-09 07:27] LABS: ALANINE AMINOTRANSFERASE 13 U/L (12-78); ALBUMIN 3.2 G/DL (3.4-5.0); ALBUMIN/GLOBULIN RATIO 0.8 (1.0-2.7); ALKALINE PHOSPHATASE 90 U/L (46-116); ANION GAP 0 mmol/L (5-15); ASPARTATE AMINO TRANSFERASE 33 U/L (15-37); BILIRUBIN,TOTAL 0.5 MG/DL (0.2-1.0); BLOOD UREA NITROGEN 1 mg/dL (7-18); CARBON DIOXIDE 27 MMOL/L (21-32); CHLORIDE 105 MMOL/L (98-107); CREATININE 0.4 MG/DL (0.55-1.30); PHOSPHORUS 2.8 MG/DL (2.5-4.9); POTASSIUM 3.7 MMOL/L (3.5-5.1); SODIUM 132 MMOL/L (136-145)
[2019-06-09 08:00] VITALS: BP 152/45
--- NOTE | 2019-06-09 08:07 | NUR ---
CASE MANAGEMENT:REVIEW 06/09/19 SI: ACUTE ENCEPHALOPATHY. FTT 98.3 81 18 149/77 94% ON RA MAG-1.6 IS: IV ROCEPHIN Q24 ASA PO QD MIDODRINE PO TID SEROQUEL PO Q12 HEPARIN SQ Q12 PROTONIX PO Q12 : TELEMETRY STATUS DCP: FROM [facility] CONV PLAN: NG TUBE F/U ON URINE CX
[2019-06-09] MEDS: cefTRIAXone 1 GM in D5W 55 ML IVPB SCH (09:36)
[2019-06-09] MEDS: Aspirin Baby 81mg ORAL SCH (09:38)
[2019-06-09] MEDS: Docusate 100mg cap ORAL SCH ×3 (09:38→18:00)
[2019-06-09] MEDS: Heparin 5000 units/ml inj SUBQ SCH ×2 (09:39→20:36)
--- NOTE | 2019-06-09 10:39 | Neurology Progress Note ---
Interim History Interim History Interim History Ms. Hunt feels better. She is much more verbal and makes sense when she talks. She is oriented to self only. 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 She continues to be cognitively impoverished. She continues to be motorically challenged. Her behavior has improved markedly. Review of Systems Neuro Review of Systems Benign. Objective Physical Exam Last Vital Signs Date Time Temp Pulse Resp B/P (MAP) Pulse Ox O2 Delivery O2 Flow Rate FiO2 06/09/19 09:00 Room Air 06/09/19 08:42 60 06/09/19 08:00 96.3 18 152/45 (80) 92 Laboratory Tests Test 06/09/19 06:42 White Blood Count 4.4 K/UL (4.8-10.8) L Red Blood Count 4.01 M/UL (4.20-5.40) L Hemoglobin 11.5 G/DL (12.0-16.0) L Hematocrit 36.1 % (37.0-47.0) L Mean Corpuscular Volume 90 FL (80-99) Mean Corpuscular Hemoglobin 28.6 PG (27.0-31.0) Mean Corpuscular Hemoglobin Concent 31.8 G/DL (32.0-36.0) L Red Cell Distribution Width 14.9 % (11.6-14.8) H Platelet Count 241 K/UL (150-450) Mean Platelet Volume 6.3 FL (6.5-10.1) L Neutrophils (%) (Auto) 47.6 % (45.0-75.0) Lymphocytes (%) (Auto) 26.0 % (20.0-45.0) Monocytes (%) (Auto) 12.9 % (1.0-10.0) H Eosinophils (%) (Auto) 11.8 % (0.0-3.0) H Basophils (%) (Auto) 1.6 % (0.0-2.0) Sodium Level 132 MMOL/L (136-145) L Potassium Level 3.7 MMOL/L (3.5-5.1) Chloride Level 105 MMOL/L (98-107) Carbon Dioxide Level 27 MMOL/L (21-32) Anion Gap 0 mmol/L (5-15) L Blood Urea Nitrogen 1 mg/dL (7-18) L Creatinine 0.4 MG/DL (0.55-1.30) L Estimat Glomerular Filtration Rate mL/min (>60) Glucose Level 98 MG/DL (74-106) Uric Acid 1.8 MG/DL (2.6-7.2) L Calcium Level 9.0 MG/DL (8.5-10.1) Phosphorus Level 2.8 MG/DL (2.5-4.9) Magnesium Level 1.6 MG/DL (1.8-2.4) L Total Bilirubin 0.5 MG/DL (0.2-1.0) Aspartate Amino Transf (AST/SGOT) 33 U/L (15-37) Alanine Aminotransferase (ALT/SGPT) 13 U/L (12-78) Alkaline Phosphatase 90 U/L (46-116) Total Protein 7.0 G/DL (6.4-8.2) Albumin 3.2 G/DL (3.4-5.0) L Globulin 3.8 g/dL Albumin/Globulin Ratio 0.8 (1.0-2.7) L Neurologic Exam Objective PHYSICAL EXAMINATION: GENERAL: She is a well-developed, lean and cachectic looking black lady, lying in bed, calmly, in no acute distress. HEAD: Normocephalic and atraumatic. EENT: Examination benign except for inability to examine her eyes because she kept her eyes shut and would not open them. NECK: No neck rigidity was observed. NEUROLOGICAL EXAMINATION: MENTAL STATUS EXAMINATION: She was awake and more alert. She was oriented to self only. She was able to recall 3/3 words immediately but could not remember them in 1 and 3 minutes. She was unable to cooperate for further mental status testing. SPEECH: She was dysarthric. LANGUAGE: She had problems with comprehension, repetition, and expression of language but was able to make some sense when she talked. CRANIAL NERVES EXAMINATION: II: She was unable to count fingers or recognize objects. III, IV & : The external ocular movements were full. The pupils were 3 mm and non-reactive. V & VII: The corneal reflexes were present, but diminished on the left side compared to the right. In addition, she also had flattening of the left nasolabial fold. VIII: She seemed to be able to hear. IX & X: The gag reflex was present, but diminished. XI: The sternocleidomastoids and trapezii did function. XII: The tongue was in the midline. MOTOR SYSTEM: The tone was increased in all four extremities with a combination of spasticity and gegenhalten. Examination of muscle mass revealed generalized muscle wasting. Examination of power was impossible to perform on individual muscle groups. She was quadriparetic with the left side being weaker than the right and the lower extremities being weaker than the upper extremities. SENSORY EXAMINATION: She responded appropriately to deep pain. She was unable to cooperate for other sensory modalities. REFLEXES: 0 at the biceps, triceps, brachioradialis, knees, and ankles. The plantar responses were equivocal bilaterally. COORDINATION, STANCE & GAIT: Could not be tested. Impression/Recommendations Diagnostic Impression 1. Ms Elvie Hunt is an 89-year-old, black lady, of unknown handedness, who does have a past history of hypertension, chronic obstructive pulmonary disease, dementia of unknown type, and protein-calorie malnutrition, who lives in a group home. She was hospitalized for an alteration in her mental state. 2. She feels better. She is verbal and makes sense when she talks. She is oriented to self only. 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 She continues to be cognitively impoverished. She continues to be motorically challenged. 3. On neurological examination at this time, she is awake and more alert. She is oriented to self only. She is unable to cooperate for further mental status testing. She is dysarthric but can say a few words that cam be understood. 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 The deep tendon reflexes are globally absent and her plantar responses are equivocal. 4. Laboratory data on my initial evaluation revealed that she was anemic with a hemoglobin of 11.1 G. The chemistry panel revealed that she was hypokalemic with a potassium of 2.9. The BUN was low at 6 and creatinine was low at 0.5. Her phosphorus was low at 2.4. Magnesium was low at 1.7. Her AST was elevated at 44. Her ammonia was less than 10. Her CRP was elevated at 2.3. Her proBNP was elevated at 1425. Her Albumin was low at 2.8. Her B12 level was normal at 853. Her folate was normal at 16.7. Her TSH was normal at 0.62. Her urinalysis revealed a negative leukocyte esterase. Unfortunately, there is no cell count performed on the urine. Further laboratory tests were benign. 5. The CT of the brain done on 06/06/19 revealed low-attenuation in the right occipital and posterior parietal lobes with slight mass effect manifested by attenuation of the adjacent sulci, the appearance is highly suggestive of a nonhemorrhagic late subacute occipital/parietal infarct. 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 Extensive chronic deep white matter microvascular ischemic changes noted. 6. The EEG done on 06/07/19 revealed a moderate encephalopathy. 7. The patient's history and neurological examination are most consistent with a significant decline in her mental state. She also exhibits significant cognitive and motor dysfunction. She does have focal neurological findings with her left body affected more than the right and the lower extremities affected more than the upper extremities. The patient has an underlying primary degenerative dementia and superadded cerebrovascular disease. She may now have a superimposed encephalopathy which may be due to a recent right parieto- occipital infarct. Recommendations 1. Continue present management. 2. Treatment of behavioral problems with neuroleptics rather than benzodiazepines. 3. Observe. Michael Lovett M.D., M.S.P.H. Michael Lovett MD Jun 09, 2019 10:39
[2019-06-09 12:00] VITALS: BP 131/65
--- NOTE | 2019-06-09 12:01 | General Progress Note ---
Assessment/Plan Problem List: (1) Lactic acid acidosis Assessment & Plan: ? UTI ICD Codes: E87.2 - Acidosis SNOMED: 70864193 (2) Failure to thrive SNOMED: 98382493 (3) Acute encephalopathy ICD Codes: G93.40 - Encephalopathy, unspecified SNOMED: 26064483, 724751810 (4) Dementia with behavioral disturbance ICD Codes: F03.91 - Unspecified dementia with behavioral disturbance SNOMED: 4181131205659 (5) Multi-infarct dementia ICD Codes: F01.50 - Vascular dementia without behavioral disturbance SNOMED: 44339926 Status: stable Assessment/Plan: discussed with grand daughter- urine culture negative reordered start midodrine albumin bolus Per orders Neuro appreciated ST eval Rocephin mag and phos supp ? DC in am CT: Low-attenuation in the right occipital and posterior parietal lobes with slight mass effect manifested by attenuation of the adjacent sulci. 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 Subjective ROS Limited/Unobtainable: No Constitutional: Reports: other - more responsive Allergies: Coded Allergies: No Known Allergies (Unverified , 06/04/19) Objective Last 24 Hour Vital Signs Date Time Temp Pulse Resp B/P (MAP) Pulse Ox O2 Delivery O2 Flow Rate FiO2 06/09/19 09:00 Room Air 06/09/19 08:42 60 06/09/19 08:00 96.3 66 18 152/45 (80) 92 06/09/19 04:00 67 06/09/19 04:00 98.3 81 18 149/77 (101) 81 06/09/19 00:00 97.7 97 18 134/81 (98) 94 06/09/19 00:00 86 06/08/19 21:00 Room Air 06/08/19 20:00 97.9 98 22 140/78 (98) 96 06/08/19 20:00 81 06/08/19 16:00 94 06/08/19 16:00 97.9 94 22 116/71 (86) 96 06/08/19 12:00 97.4 67 20 91/62 (72) 96 06/08/19 12:00 73 Intake and Output 06/08/19 06/09/19 19:00 07:00 Intake Total 50 ml 240 ml Output Total 200 ml 900 ml Balance -150 ml -660 ml Intake Oral 240 ml IV Total 50 ml Output Urine Total 200 ml 900 ml # Voids 1 Laboratory Tests 06/09/19 06:42: White Blood Count 4.4L, Red Blood Count 4.01L, Hemoglobin 11.5L, Hematocrit 36.1L, Mean Corpuscular Volume 90, Mean Corpuscular Hemoglobin 28.6, Mean Corpuscular Hemoglobin Concent 31.8L, Red Cell Distribution Width 14.9H, Platelet Count 241, Mean Platelet Volume 6.3L, Neutrophils (%) (Auto) 47.6, Lymphocytes (%) (Auto) 26.0, Monocytes (%) (Auto) 12.9H, Eosinophils (%) (Auto) 11.8H, Basophils (%) (Auto) 1.6, Sodium Level 132L, Potassium Level 3.7, Chloride Level 105, Carbon Dioxide Level 27, Anion Gap 0L, Blood Urea Nitrogen 1L, Creatinine 0.4L, Estimat Glomerular Filtration Rate , Glucose Level 98, Uric Acid 1.8L, Calcium Level 9.0, Phosphorus Level 2.8, Magnesium Level 1.6L, Total Bilirubin 0.5, Aspartate Amino Transf (AST/SGOT) 33, Alanine Aminotransferase (ALT/SGPT) 13, Alkaline Phosphatase 90, Total Protein 7.0, Albumin 3.2L, Globulin 3.8, Albumin/Globulin Ratio 0.8L Height (Feet): 5 Height (Inches): 5.00 Weight (Pounds): 126 General Appearance: no apparent distress Cardiovascular: normal rate Respiratory/Chest: decreased breath sounds Abdomen: soft Matthew Britton MD Jun 09, 2019 12:01
--- NOTE | 2019-06-09 13:23 | NUR ---
RD ASSESSMENT & RECOMMENDATIONS SEE CARE ACTIVITY FOR COMPLETE ASSESSMENT DAILY ESTIMATED NEEDS: Needs based on Cardiac, advanced age, wasting 57kg 25-30 kcals/kg 4613-5527 total kcals 1-1.5 g protein/kg 57-86 g total protein 20-25 mL/kg 6422-5869 total fluid mLs NUTRITION DIAGNOSIS: 1) Altered nutrition related lab values r/t clinical status as evidenced by low lyes: K 2.9, MG 1.7, Phos 2.4. 2) Swallowing difficulty r/t dysphagia as evidenced by pt evaluated by [employer] w/ recs for liquify puree and NTL. CURRENT DIET: NINI liquify puree w/ NTL PO DIET RECOMMENDATIONS: LOW NA diet, texture per [employer] + Ensure 1 bottle BID in b/w meals ADDITIONAL RECOMMENDATIONS: 1) Obtain a calibrated bed scale wt 2) Replete lytes [employer] diet 3) Non oral TF recs if part of POC w/ poor po intake 4) MONITOR LYTES CLOSELY W/ TF/ AT HIGH RISK FOR REFEEDING MONITOR BG/ NEED FOR NISS
[2019-06-09 16:00] VITALS: BP 126/64
--- NOTE | 2019-06-09 18:24 | NUR ---
NURSE NOTES: [facility] .
--- NOTE | 2019-06-09 19:00 | NUR ---
NURSE NOTES: Received report from GREGG Silveira, patient in stable condition, lying comfortably in bed, AOx2, able to make needs known to a degree, denies pain at this time, IV on R forearm, G 22, asymptomatic, intact, patent, bed lowest position, brakes on, call light within reach, will continue to monitor and reassess.
--- NOTE | 2019-06-09 19:00 | NUR ---
HAND-OFF: Report given to GREGG Spears.
[2019-06-09 20:00] VITALS: BP 129/97
--- NOTE | 2019-06-09 20:49 | Cardiology Report ---
APPROVED REPORT EKG Measurement Heart [id number] NE [id number] Normal sinus rhythm Left axis deviation T wave abnormality, consider lateral ischemia Abnormal ECG
[2019-06-10] VITALS: BP 151/86
--- NOTE | 2019-06-10 02:32 | NUR ---
NURSE NOTES: Patient in bed asleep with no S/S of distress. Will continue to monitor.
[2019-06-10 04:00] VITALS: BP 143/72
--- NOTE | 2019-06-10 07:00 | NUR ---
HAND-OFF: Report given to GREGG Nathan, patient in stable condition, plan of care endorsed.
--- NOTE | 2019-06-10 07:17 | NUR ---
NURSE NOTES: Report received from GREGG Benitez. Pt shows no signs of distress, A+Ox1, denies pain/SOB. Respirations are even and unlabored on room air. IV site is intact and saline locked. Bed is at lowest position, brakes engaged, siderails x2, bed alarm on, and call light within reach. Pt is in stable condition; will continue to monitor.
[2019-06-10 08:00] VITALS: BP 132/66
[2019-06-10] MEDS: Docusate 100mg cap ORAL SCH ×2 (08:35→13:33)
[2019-06-10] MEDS: Aspirin Baby 81mg ORAL SCH (08:35)
[2019-06-10] MEDS: Heparin 5000 units/ml inj SUBQ SCH (08:36)
[2019-06-10] MEDS: cefTRIAXone 1 GM in D5W 55 ML IVPB SCH (08:41)
--- NOTE | 2019-06-10 10:11 | General Progress Note ---
Assessment/Plan Problem List: (1) Lactic acid acidosis Assessment & Plan: ? UTI ICD Codes: E87.2 - Acidosis SNOMED: 67284706 (2) Failure to thrive SNOMED: 33066902 (3) Acute encephalopathy ICD Codes: G93.40 - Encephalopathy, unspecified SNOMED: 92526695, 686328369 (4) Dementia with behavioral disturbance ICD Codes: F03.91 - Unspecified dementia with behavioral disturbance SNOMED: 9297668593248 (5) Multi-infarct dementia ICD Codes: F01.50 - Vascular dementia without behavioral disturbance SNOMED: 23785891 Status: stable Assessment/Plan: DC to ECF family request a different ECF Previously discussed with grand daughter- urine culture negative reordered PRN midodrine albumin bolus as needed Per orders Neuro appreciated ST eval Rocephin mag and phos supp ? DC in am CT: Low-attenuation in the right occipital and posterior parietal lobes with slight mass effect manifested by attenuation of the adjacent sulci. 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 Subjective ROS Limited/Unobtainable: No Constitutional: Reports: other - calm responsive Allergies: Coded Allergies: No Known Allergies (Unverified , 06/04/19) Objective Last 24 Hour Vital Signs Date Time Temp Pulse Resp B/P (MAP) Pulse Ox O2 Delivery O2 Flow Rate FiO2 06/10/19 08:00 96.7 63 18 132/66 (88) 99 06/10/19 04:00 98.0 82 18 143/72 (95) 96 06/10/19 04:00 63 06/10/19 00:00 75 06/10/19 00:00 97.7 90 18 151/86 (107) 95 06/09/19 20:48 Room Air 06/09/19 20:00 98.3 91 18 129/97 (108) 92 06/09/19 20:00 86 06/09/19 16:06 71 06/09/19 16:00 98.2 78 18 126/64 (84) 94 06/09/19 12:00 98.3 83 18 131/65 (87) 92 06/09/19 11:44 93 Intake and Output 06/09/19 06/10/19 19:00 07:00 Intake Total 480 ml Balance 480 ml Intake Oral 480 ml # Voids 1 3 Current Medications Medications (Trade) Dose Ordered Sig/Abiel Route PRN Reason Start Time Stop Time Status Last Admin Dose Admin Acetaminophen (Tylenol) 650 mg Q4H PRN ORAL Mild Pain/Temp > 100.5 06/05/19 19:00 07/04/19 18:59 Aspirin (ASA) 81 mg DAILY ORAL 06/06/19 09:00 07/05/19 08:59 06/10/19 08:35 Ceftriaxone Sodium 1 gm/ Dextrose 55 ml @ 110 mls/hr DAILY IVPB 06/06/19 09:00 06/12/19 09:59 06/10/19 08:41 Docusate Sodium (Colace) 100 mg THREE TIMES A DAY ORAL 06/06/19 09:00 07/05/19 08:59 06/10/19 08:35 Haloperidol Lactate (Haldol) 2 mg Q4H PRN IM Agitation 06/07/19 16:15 07/07/19 16:14 Heparin Sodium (Porcine) (Heparin 5000 units/ml) 5,000 units EVERY 12 HOURS SUBQ 06/05/19 21:00 07/04/19 20:59 06/10/19 08:36 Hydralazine HCl (Apresoline) 25 mg Q4H PRN ORAL bp over 160 syst 06/05/19 19:00 07/04/19 18:59 Midodrine (Pro-Amatine) 2.5 mg THREE TIMES A DAY ORAL 06/09/19 13:00 07/08/19 17:59 06/09/19 13:39 Pantoprazole (Protonix) 40 mg EVERY 12 HOURS ORAL 06/05/19 21:00 07/04/19 20:59 06/10/19 08:35 Quetiapine Fumarate (SEROquel) 25 mg Q12HR ORAL 06/07/19 21:00 07/05/19 17:59 06/10/19 08:35 Height (Feet): 5 Height (Inches): 5.00 Weight (Pounds): 126 Matthew Britton MD Jun 10, 2019 10:11
[2019-06-10] MEDS ORDERED: COLACE100 MG ORAL (10:13)
[2019-06-10] MEDS ORDERED: PRO-AMATINE2.5 MG ORAL (10:13)
[2019-06-10] MEDS ORDERED: PANTOPRAZOLE SO40 MG ORAL (10:13)
--- NOTE | 2019-06-10 10:14 | Discharge Instructions ---
Discharge Instructions Discharge Instructions Follow up with: fu by me in ECF Diet: cardiac 2 GM Na, low fat, other - easy chew Special Instructions Psych eval as needed aspiration pre cautions routin skin care For Congestive Heart Failure Reminder Report to your physician any weight gain of 5 pounds or more in one week. Matthew Britton MD Jun 10, 2019 10:14
--- NOTE | 2019-06-10 11:48 | NUR ---
[facility] AWAIT ACCEPTANCE OR REJECTION
[2019-06-10 12:00] VITALS: BP 137/92
--- NOTE | 2019-06-10 12:00 | NUR ---
NURSE NOTES: Pt has discharge order in. gambling monitor removed. [facility] to be here at 1600 to diamond picker patient to go to [facility].
--- NOTE | 2019-06-10 14:57 | NUR ---
DISCHARGE PLANNED PATIENT WILL DISCHARGE TO [facility] SKILLED T: [phone] FOR NURSE TO NURSE REPORT [facility] HAS BEEN ARRANGED FOR 1600 MINISTER HELPER TRANSFER FORM HAS BEEN COMPLETED
--- NOTE | 2019-06-10 15:29 | Neurology Progress Note ---
Interim History Interim History Interim History Ms. Hunt feels well. She is much more verbal and makes partial sense when she talks. She is oriented to self only. 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 She continues to be cognitively impoverished. She continues to be motorically challenged. Her behavior has improved markedly. Review of Systems Neuro Review of Systems Benign. Objective Physical Exam Last Vital Signs Date Time Temp Pulse Resp B/P (MAP) Pulse Ox O2 Delivery O2 Flow Rate FiO2 06/10/19 12:00 97.1 82 18 137/92 (107) 97 06/10/19 09:00 Room Air Neurologic Exam Objective PHYSICAL EXAMINATION: GENERAL: She is a well-developed, lean and cachectic looking black lady, lying in bed, calmly, in no acute distress. HEAD: Normocephalic and atraumatic. EENT: Examination benign. NECK: No neck rigidity was observed. NEUROLOGICAL EXAMINATION: MENTAL STATUS EXAMINATION: She was awake and more alert. She was oriented to self only. She was able to recall 3/3 words immediately but could not remember them in 1 and 3 minutes. She was unable to cooperate for further mental status testing. SPEECH: She was dysarthric. LANGUAGE: She had problems with comprehension, repetition, and expression of language but was able to make some sense when she talked. CRANIAL NERVES EXAMINATION: II: She was unable to count fingers or recognize objects. III, IV & : The external ocular movements were full. The pupils were 3 mm and non-reactive. V & VII: The corneal reflexes were present, but diminished on the left side compared to the right. In addition, she also had flattening of the left nasolabial fold. VIII: She seemed to be able to hear. IX & X: The gag reflex was present, but diminished. XI: The sternocleidomastoids and trapezii did function. XII: The tongue was in the midline. MOTOR SYSTEM: The tone was increased in all four extremities with a combination of spasticity and gegenhalten. Examination of muscle mass revealed generalized muscle wasting. Examination of power was impossible to perform on individual muscle groups. She was quadriparetic with the left side being weaker than the right and the lower extremities being weaker than the upper extremities. SENSORY EXAMINATION: She responded appropriately to deep pain. She was unable to cooperate for other sensory modalities. REFLEXES: 0 at the biceps, triceps, brachioradialis, knees, and ankles. The plantar responses were flexor bilaterally. COORDINATION, STANCE & GAIT: Could not be tested. Impression/Recommendations Diagnostic Impression 1. Ms Elvie Hunt is an 89-year-old, black lady, of unknown handedness, who does have a past history of hypertension, chronic obstructive pulmonary disease, dementia of unknown type, and protein-calorie malnutrition, who lives in a fpc. She was hospitalized for an alteration in her mental state. 2. She feels well. She is much more verbal and makes partial sense when she talks. She is oriented to self only. 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 She continues to be cognitively impoverished. She continues to be motorically challenged. Her behavior has improved markedly. 3. On neurological examination at this time, she is awake and alert. She is oriented to self only. She is unable to cooperate for further mental status testing. She is dysarthric but can say a few words that can be understood. 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 The deep tendon reflexes are globally absent and her plantar responses are flexor. 4. Laboratory data on my initial evaluation revealed that she was anemic with a hemoglobin of 11.1 G. The chemistry panel revealed that she was hypokalemic with a potassium of 2.9. The BUN was low at 6 and creatinine was low at 0.5. Her phosphorus was low at 2.4. Magnesium was low at 1.7. Her AST was elevated at 44. Her ammonia was less than 10. Her CRP was elevated at 2.3. Her proBNP was elevated at 1425. Her Albumin was low at 2.8. Her B12 level was normal at 853. Her folate was normal at 16.7. Her TSH was normal at 0.62. Her urinalysis revealed a negative leukocyte esterase. Unfortunately, there is no cell count performed on the urine. Further laboratory tests were benign. 5. The CT of the brain done on 06/06/19 revealed low-attenuation in the right occipital and posterior parietal lobes with slight mass effect manifested by attenuation of the adjacent sulci, the appearance is highly suggestive of a nonhemorrhagic late subacute occipital/parietal infarct. 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 Extensive chronic deep white matter microvascular ischemic changes noted. 6. The EEG done on 06/07/19 revealed a moderate encephalopathy. 7. The patient's history and neurological examination are most consistent with a significant decline in her mental state. She also exhibits significant cognitive and motor dysfunction. She does have focal neurological findings with her left body affected more than the right and the lower extremities affected more than the upper extremities. The patient has an underlying primary degenerative dementia and superadded cerebrovascular disease. She may now have a superimposed encephalopathy which may be due to a recent right parieto- occipital infarct. Recommendations 1. Continue present management. 2. Treatment of behavioral problems with neuroleptics rather than benzodiazepines. 3. Observe. Michael Lovett M.D., M.S.P.[facility]. Michael Lovett MD Jun 10, 2019 15:29
--- NOTE | 2019-06-10 15:34 | NUR ---
NURSE NOTES: Report given to Nurse Parks at [facility].
[2019-06-10 15:58] VITALS: BP 131/60
--- NOTE | 2019-06-10 16:48 | NUR ---
NURSE NOTES: Report given to [facility]. IV and wristband removed. Pt has no belongings. VSS. Pt showing no signs of distress. Pt discharged safely via gurney with ambulance personnel. Addendum: 06/10/19 at 1656 by YOUSUF AHUJA RN Pt going to [facility]
[2019-06-10] MEDS ORDERED: D5 1/2NS 1000ml IV ONE (16:49)
--- NOTE | 2019-06-10 17:45 | History and Physical Report ---
DATE OF ADMISSION: 06/04/2019 HISTORY OF PRESENT ILLNESS: The patient was seen on June 05, 2019. This is an 89-year-old female with past history of dementia, hypertension, was noted not eating for the past few days with a change in mental status. The patient was sent for evaluation in the emergency room. Upon initial evaluation, the patient was found to be encephalopathic with higher lactic acid level and was subsequently admitted for further management. PAST MEDICAL HISTORY: Significant for history of oropharyngeal dysphagia, dementia, history of malnutrition, paroxysmal atrial fibrillation, osteoarthritis, hypertension, degenerative joint disease, and prior history of encephalopathy. PHYSICAL EXAMINATION: GENERAL: On the day of admission, the patient was very uncooperative and encephalopathic. VITAL SIGNS: Temperature was 98.2, blood pressure 130/70, and pulse oximetry was 96%. HEENT: Head is normocephalic. Sclerae not icteric. NECK: Rigid to all directions. HEART: Mainly irregular, occasionally irregular beats. LUNGS: Decreased breath sounds over the bases. ABDOMEN: Soft. EXTREMITIES: DJD changes. LABORATORY AND DIAGNOSTIC DATA: Initial lab data was hemoglobin 12.6, white blood cells 8.4. The electrolytes were normal. The initial lactic acid was 2.5. Urinalysis initially had 2+ ketones. Chest x-ray, which was done on admission some degree of mild chronic CHF was not excluded. IMPRESSION: The patient was admitted on a monitored bed with the impression of: 1. Acute encephalopathy. 2. Elevated lactic acid level. 3. Failure to thrive. 4. History of paroxysmal atrial fibrillation. 5. Possible UTI. PLAN: Urine for culture was sent. The patient was started on Rocephin, IV hydration, and Neurology consultation from Dr. Michael Lovett, was sought with idea that according to how the patient's condition evolves, we would be making proper changes in our future management. Matthew Britton M.D. DR: NUNO JOB#: [id number] CC:
--- NOTE | 2019-06-11 09:43 | Discharge Summary ---
Discharge Summary Discharge Summary _ DATE OF ADMISSION: 06/04/2019 DATE OF DISCHARGE: 06/10/2019 DISCHARGED BY: Dr. Britton REASON FOR ADMISSION: 89 years old female with past medical history of hypertension, dysphagia, paroxysmal atrial fibrillation, hypertension, osteoarthritis, degenerative joint disease, was not eating for the past few days, was altered and subsequently was referred to emergency room for evaluation. Upon evaluation in emergency department laboratory work-up revealed elevated lactic acid 2.5. No leukocytosis, stable hemoglobin and hematocrit. Glucose 99. Stable electrolytes. Stable LFT. Troponin 0.054. Pro BNP 857. Albumin 3.2. Urinalysis revealed +2 ketones. EKG revealed sinus rhythm no acute ischemic changes. Chest x-ray demonstrated probably some degree of mild chronic CHF . Patient admitted with altered mental status , failure to thrive, lactic acidosis. CONSULTANTS: neurologist Dr. Lovett HOSPITAL COURSE: Patient admitted to telemetry floor and started on IV hydration and on empiric antibiotics for possible UTI. Neurologist seen and evaluated patient. CT of the head revealed low-attenuation in the right occipital and posterior parietal lobes with slight mass effect , manifested by attenuation of the adjacent sulci. Appearance was highly suggestive of a nonhemorrhagic late subacute occipital/ parietal infarct Evidence of old left posterior parietal and small old right frontal infarct. Extensive chronic deep white matter microvascular ischemic changes noted. Ventriculomegaly. Probably secondary to central volume loss, but somewhat out of proportion to the degree of sulcal dilatation and the possibility of normal pressure hydrocephalus should be considered Negative for acute intracranial bleed or mass effect. Per neurologist, patient's history and neurological examination were most consistent with a significant decline in mental status. Patient also did exhibit significant cognitive and motor dysfunction. She had focal neurological findings with her left side of the body more affected than the right, and lower extremity more affected than the upper extremity. EEG revealed moderate encephalopathy. Patient had underlying primary degenerative dementia and extensive cerebrovascular disease. Per neurologist, patient had superimposed encephalopathy due to recent right parieto-occipital infarct. Neurologist recommended to continue treatment of behavioral problems with neuroleptic , rather than benzodiazepines and observe closely. Lipid panel was stable. B12 ,folate ,TSH,- all within normal limits. Ammonia less than 10. RPR nonreactive. Patient started on antiplatelet therapy with aspirin. DVT prophylaxis provided. Blood pressure was closely monitored. Patient started on low-dose of midodrine. Supplemental oxygen provided as needed to keep pulse oximetry above 92%. Pulse oximetry was stable on room air. Bowel regimen instituted. GI prophylaxis provided. Continue further dysphagia management and [facility]. Nutritional assessment revealed that patient was at high risk for malnutrition. Dietary supplements provided as per registered nurse practitioner recommendation and included in plan of care, and to be continued at the [facility] Urine culture revealed mixed gram-positive organism. Blood cultures were negative. Antibiotic stopped. Patient's daughter requested another [facility]. Patient was [facility] at [facility]. Patient was stable for [facility] for continuation of care. Prior to discharge blood pressure 131/60, pulse oximetry stable on room air. FINAL DIAGNOSES: Acute encephalopathy due to recent subacute infarct Recent subacute right parieto-occipital infarct Lactic acidosis Dementia with behavioral disturbances Multi-infarct dementia Extensive cerebrovascular disease History of paroxysmal atrial fibrillation DISCHARGE MEDICATIONS: See Medication Reconciliation list. DISCHARGE INSTRUCTIONS: Patient was [facility]. Follow up with medical doctor at the facility. I have been assigned to dictate discharge summary for this account. I was not involved in the patient's management.. Genie Moore NP Jun 11, 2019 09:43
== END 2019-06-10 16:50 | DRG 64 ==
LOC: EDBD 14:34 → EMR 15:50 → 2W 16:05 → EDBEDREQ 19:02 → 2W 20:20 → 2E 06-05 18:25
DX: I63.89 Other cerebral infarction (principal); G82.50 Quadriplegia, unspecified; F01.51 Vascular dementia, unspecified severity, with behavioral disturbance; G93.40 Encephalopathy, unspecified; E87.2 Acidosis; N39.0 Urinary tract infection, site not specified; R62.7 Adult failure to thrive; I48.0 Paroxysmal atrial fibrillation; J44.9 Chronic obstructive pulmonary disease, unspecified; I10 Essential (primary) hypertension; R13.10 Dysphagia, unspecified; I67.9 Cerebrovascular disease, unspecified; M19.90 Unspecified osteoarthritis, unspecified site
CPT/HCPCS: 36415; 70450; 71045; 80053; 80061; 81001; 81003; 82140; 82550; 82553; 82607; 82728; 82746; 82962; 82977; 83036; 83540; 83550; 83605; 83690; 83735; 83880; 84100; 84443; 84484; 84550; 85025; 85610; 85651; 85730; 86140; 86592; 87040; 87081; 87086; 93005; 95819; 96361; 96374; 96375; 99285

== ENCOUNTER 2019-10-19 16:23 | Inpatient (IN) | payer MEDICARE, OTHER ==
[~2019-10-19] VITALS: Ht 165.1 cm; Wt 55.4 kg
[~2019-10-19 16:23] MED LIST changes: +PANTOPRAZOLE SO40 MG ORAL; +PRO-AMATINE2.5 MG ORAL
[2019-10-19 16:25] VITALS: BP 162/105
--- NOTE | 2019-10-19 16:25 | NUR ---
ED Nurse Note: Pt brought in by [facility] from senior living, [facility] for c/o chest pain. Pt currently does not state chest pain while in the ED, but was verbalized at [facility] which concerned staff since pt does not normally state any pain, per [facility] report. Pt is breathing normal and unlabored, rambling speech which is baseline for pt per [facility] report. Per [facility] pt was hypertensive en route with BP of 202/114. Pt BP 162/105 once presented in the ER. Pt was given 1 spray of nitro en route by [facility]. Pt has hx of afib, other history is unobtainable due to patients mental status. Pt is blind and became agitated with personnel and payroll technician/RN at bedside and was not cooperating while connecting to clay modeler. Pt to be given medication per ERMD orders. Pt is awake and alert but not oriented to person, place or time. Pt placed on clay modeler and in gown. Will continue to monitor. Safety measures in place.
[2019-10-19] MEDS ORDERED: Haloperidol 5mg/ml Inj ONE (16:49)
[2019-10-19] MEDS ORDERED: Haloperidol 5mg/ml Inj IM ONE (17:00)
[2019-10-19 17:07] LABS: ANION GAP 6 mmol/L (5-15); BLOOD UREA NITROGEN 20 mg/dL (7-18); CALCIUM 9.4 MG/DL (8.5-10.1); CARBON DIOXIDE 30 MMOL/L (21-32); CHLORIDE 102 MMOL/L (98-107); CREATININE 0.6 MG/DL (0.55-1.30); POTASSIUM 4.5 MMOL/L (3.5-5.1); SODIUM 138 MMOL/L (136-145)
[2019-10-19 17:10] LABS: BASOPHILS % (AUTO) 1.3 % (0.0-2.0); EOSINOPHILS % (AUTO) 6.2 % (0.0-3.0); HEMATOCRIT 40.5 % (37.0-47.0); HEMOGLOBIN 13.2 G/DL (12.0-16.0); MEAN CORPUSCULAR VOLUME 89 FL (80-99); MONOCYTES % (AUTO) 11.2 % (1.0-10.0); NEUTROPHILS % (AUTO) 49.3 % (45.0-75.0); PLATELET COUNT 267 K/UL (150-450); RED BLOOD COUNT 4.54 M/UL (4.20-5.40); RED CELL DISTRIBUTION WIDTH 13.8 % (11.6-14.8)
[2019-10-19 17:18] LABS: ALANINE AMINOTRANSFERASE 24 U/L (12-78); ALBUMIN 3.2 G/DL (3.4-5.0); ALBUMIN/GLOBULIN RATIO 0.7 (1.0-2.7); ALKALINE PHOSPHATASE 106 U/L (46-116); ASPARTATE AMINO TRANSFERASE 22 U/L (15-37); BILIRUBIN,TOTAL 0.4 MG/DL (0.2-1.0)
--- NOTE | 2019-10-19 17:20 | NUR ---
ED Nurse Note: No open wounds on anterior aspect of patient, will assess posterior area once pt calms down and is not agitated.
[2019-10-19] MEDS ORDERED: FLEET ENEMA133 ML RECTAL (17:30)
[2019-10-19] MEDS ORDERED: MILK OF MA400 MG/51 ORAL (17:30)
--- NOTE | 2019-10-19 17:49 | NUR ---
ED Nurse Note: Pt continuously pulling off cardic monitor cables. Pt instructed to keep cables in place.
--- NOTE | 2019-10-19 17:59 | Emergency Room Report ---
History of Present Illness General Chief Complaint: Chest Pain Source: Patient Present Illness HPI 89-year-old female presents ED for evaluation. Brought in by EMS from [facility] facility. Reportedly told nursing that he she was having chest pain today. On arrival patient is anxious and yelling. Unwilling to tell me whether she is having chest pain at this time. Does have a history of dementia. No signs of distress. No reported shortness of breath. No other aggravating relieving factors. No other associated symptoms Allergies: Coded Allergies: No Known Allergies (Unverified , 06/04/19) Patient History Past Medical History: HTN, CAD, COPD, dementia Past Surgical History: none Pertinent Family History: none Social History: Denies: smoking, alcohol use, drug use Now: No Immunizations: UTD Reviewed Nursing Documentation: PMH: Agreed; PSxH: Agreed Nursing Documentation-PMH Past Medical History: No History, Except For Hx Cardiac Problems: Yes - acute ischemic hear disease Hx Hypertension: Yes Hx COPD: Yes Hx Cancer: No Hx Gastrointestinal Problems: No Hx Neurological Problems: Yes Hx Dementia: Yes Hx Speech Problem: Yes Hx Dysphasia: Yes Hx Weakness: Yes Review of Systems All Other Systems: negative except mentioned in HPI Physical Exam Vital Signs Date Time Temp Pulse Resp B/P (MAP) Pulse Ox O2 Delivery O2 Flow Rate FiO2 10/19/19 16:20 85 16 202/107 (138) 98 Room Air Sp02 EP Interpretation: reviewed, normal General Appearance: no apparent distress, alert, GCS 15, non-toxic Head: normocephalic, atraumatic Eyes: bilateral eye normal inspection, bilateral eye PERRL ENT: hearing grossly normal, normal pharynx, no angioedema, normal voice Neck: full range of motion, supple/symm/no masses Respiratory: chest non-tender, lungs clear, normal breath sounds, speaking full sentences Cardiovascular #1: regular rate, rhythm, no edema Cardiovascular #2: 2+ carotid (R), 2+ carotid (L), 2+ radial (R), 2+ radial (L) , 2+ dorsalis pedis (R), 2+ dorsalis pedis (L) Gastrointestinal: normal bowel sounds, non tender, soft, non-distended, no guarding, no rebound Rectal: deferred Genitourinary: normal inspection, no CVA tenderness Musculoskeletal: back normal, normal range of motion, gait/station normal, non- tender Neurologic: alert, motor strength/tone normal, oriented x3, sensory intact, responsive, speech normal Psychiatric: judgement/insight normal, memory normal, mood/affect normal, no suicidal/homicidal ideation Reflexes: 3+ bicep (R), 3+ bicep (L), 3+ tricep (R), 3+ tricep (L), 3+ knee (R) , 3+ knee (L) Skin: no rash Lymphatic: no adenopathy Medical Decision Making Diagnostic Impression: Primary Impression: ACS (acute coronary syndrome) Additional Impression: Dementia with behavioral disturbance Qualified Codes: F03.91 - Unspecified dementia with behavioral disturbance ER Course Hospital Course 89 yo F presents to ED with reported chest pain at SNF. agitated/combative Differential diagnoses include: OR/unstable angina, contusion, muscle strain, PTX, rib fracture Clinical course Patient placed on stretcher. on lunchroom monitor. After initial history and physical I ordered labs, EKG, chest x-ray Patient is not compliant to treatment. Pulling and yelling. History of dementia. Given Haldol in ED labs reviewed- no leukocytosis, hb/hct stable, electrolytes ok, trop x 1 negative EKG - NSR, no acute ischemic changes interpreted by me Chest x-ray- no acute process given aspirin. is more calm after haldol. vitals stable. protectivng airway. Case discussed with Dr. Ly and he agreed to accept the patient to his service for further care and support I. I feel this is a highly complex case requiring extensive working including EKG/Rhythm strip, Xray/CT/US, Blood/urine lab work, repeat exams while in ED, and administration of strong opiates/narcotics for pain control, admission to hospital or close patient follow up. Diagnosis - ACS, dementia with behavioral disturbance admitted to telemetry in serious condition Labs Test 10/19/19 16:40 White Blood Count 8.0 K/UL (4.8-10.8) Red Blood Count 4.54 M/UL (4.20-5.40) Hemoglobin 13.2 G/DL (12.0-16.0) Hematocrit 40.5 % (37.0-47.0) Mean Corpuscular Volume 89 FL (80-99) Mean Corpuscular Hemoglobin 29.2 PG (27.0-31.0) Mean Corpuscular Hemoglobin Concent 32.7 G/DL (32.0-36.0) Red Cell Distribution Width 13.8 % (11.6-14.8) Platelet Count 267 K/UL (150-450) Mean Platelet Volume 6.8 FL (6.5-10.1) Neutrophils (%) (Auto) 49.3 % (45.0-75.0) Lymphocytes (%) (Auto) 32.0 % (20.0-45.0) Monocytes (%) (Auto) 11.2 % (1.0-10.0) Eosinophils (%) (Auto) 6.2 % (0.0-3.0) Basophils (%) (Auto) 1.3 % (0.0-2.0) Sodium Level 138 MMOL/L (136-145) Potassium Level 4.5 MMOL/L (3.5-5.1) Chloride Level 102 MMOL/L (98-107) Carbon Dioxide Level 30 MMOL/L (21-32) Anion Gap 6 mmol/L (5-15) Blood Urea Nitrogen 20 mg/dL (7-18) Creatinine 0.6 MG/DL (0.55-1.30) Estimat Glomerular Filtration Rate mL/min (>60) Glucose Level 110 MG/DL (74-106) Calcium Level 9.4 MG/DL (8.5-10.1) Total Bilirubin 0.4 MG/DL (0.2-1.0) Aspartate Amino Transf (AST/SGOT) 22 U/L (15-37) Alanine Aminotransferase (ALT/SGPT) 24 U/L (12-78) Alkaline Phosphatase 106 U/L (46-116) Troponin I 0.003 ng/mL (0.000-0.056) Pro-B-Type Natriuretic Peptide 228 pg/mL (0-125) Total Protein 8.1 G/DL (6.4-8.2) Albumin 3.2 G/DL (3.4-5.0) Globulin 4.9 g/dL Albumin/Globulin Ratio 0.7 (1.0-2.7) EKG Diagnostic Results Rate: normal Rhythm: NSR ST Segments: no acute changes ASA given to the pt in ED: Yes Rhythm Strip Diag. Results EP Interpretation: yes Rhythm: NSR, no PVC's, no ectopy Chest X-Ray Diagnostic Results Chest X-Ray Diagnostic Results : Chest X-Ray Ordered: Yes # of Views/Limited/Complete: 1 View Indication: Chest Pain EP Interpretation: Yes Interpretation: no consolidation, no effusion, no pneumothorax, no acute cardiopulmonary disease Impression: No acute disease Electronically Signed by: Electronically signed by Torres Tesfaye MD Last Vital Signs Date Time Temp Pulse Resp B/P (MAP) Pulse Ox O2 Delivery O2 Flow Rate FiO2 10/19/19 16:25 91 18 162/105 99 Room Air Status: improved Disposition: ADMITTED INPATIENT Condition: Serious Referrals: Kemar Ly MD (PCP) Torres Tesfaye MD Oct 19, 2019 17:59
--- NOTE | 2019-10-19 19:00 | NUR ---
HAND-OFF: Report given to GREGG Zhang.
--- NOTE | 2019-10-19 19:06 | NUR ---
ED Nurse Note: Got report from GREGG Chicas. Patient is sleeping no acute disstress noticed.
[2019-10-19] MEDS ORDERED: Haloperidol 5mg/ml Inj IM PRN (20:45)
--- NOTE | 2019-10-19 20:55 | NUR ---
ED Nurse Note: Patient was admited to the Tele unit, due to CP. Patient AAO x 0, VSS at this time, skin is intact. Patient was transfered to the unit via gurney, by ACLS protocol, with all belongings.
--- NOTE | 2019-10-19 21:15 | NUR ---
NURSE NOTES: RECEIVED PATIENT FROM ER. PATIENT CONFUSED, PLACED PATIENT ON MONITOR, SR ON TELE. FALL AND ASPIRATION PRECAUTIONS IN PLACE: CALL LIGHT WITHIN REACH, BED IN LOW POSITION AND BED ALARM ON ZONE 2; HOB ELEVATED. WILL CONTINUE WITH PLAN OF CARE.
[2019-10-19] MEDS: Heparin 5000 units/ml inj SUBQ SCH (21:16)
[2019-10-19] MEDS: LORazepam 0.5mg tab ORAL PRN (21:17)
[2019-10-19 21:30] VITALS: BP 139/71
[2019-10-19] MEDS ORDERED: PANTOPRAZOLE SO40 MG ORAL (22:15)
--- NOTE | 2019-10-19 22:30 | Consultation ---
DATE OF CONSULTATION: 10/19/2019 CARDIOLOGY CONSULTATION CONSULTING PHYSICIAN: Eligio Quiroz M.D. REFERRING PHYSICIAN: Kemar Ly M.D. REASON FOR CONSULTATION: Chest pain HISTORY OF PRESENT ILLNESS: This is an 89-year-old female. She has underlying dementia. She, due to cerebrovascular disease, resides at a [facility] facility. She reported chest pain today and was transferred to the emergency room. On arrival, the patient was anxious, yelling and confused. It was unclear whether she was having any discomfort in her chest at that time. [facility] records and staff were unable to give any detailed information. The patient was noted to have an elevated blood pressure in the emergency room and was given medications with some improvement in her blood pressure parameters. Of note, the patient was hospitalized here just under a year ago with similar complaints. Her workup at that time included troponin levels, which were negative for myocardial infarction and an echocardiogram revealing normal ejection fraction with mild concentric hypertrophy and mild degenerative valve disease. At that time, she had minimal pulmonary hypertension with PA systolic pressure of 37 and mild aortic insufficiency. The family members were offered further diagnostic studies last year, but refused a stress test and the patient has been stable on medical therapy since. PAST MEDICAL HISTORY: Hypertension, possible coronary artery disease, possible paroxysmal atrial fibrillation, cerebrovascular disease with dementia, and COPD. MEDICATIONS: Reviewed and reconciled. ALLERGIES: None known. FAMILY HISTORY: Noncontributory. SOCIAL HISTORY: Negative for smoking, alcohol, or substance abuse. REVIEW OF SYSTEMS: Cannot be reliably obtained from the patient at this time. PHYSICAL EXAMINATION: VITAL SIGNS: Initial blood pressure 202/107, subsequently 162/105; heart rate 91; and respiratory rate 18. GENERAL: Temporal wasting. HEENT: Conjunctivae pink. Oropharynx clear. NECK: Supple. Jugular venous pressure normal. No accessory muscle use or bruits. LUNGS: Clear. CARDIAC: Regular rhythm and rate. Normal S1, S2 with a 1/4 diastolic decrescendo at the base. ABDOMEN: Soft and nontender. EXTREMITIES: There is no edema. LABORATORY AND DIAGNOSTIC DATA: EKG with sinus rhythm and no acute abnormalities. Chest x-ray, no acute process. Troponin negative. White count 8, hemoglobin 13. Pro-natriuretic peptide is 228. Albumin is 3.2. BUN 20, creatinine 0.6. IMPRESSION: 1. Possible acute coronary syndrome. 2. History of hypertension and hypertensive heart disease now with hypertensive urgency. 3. Cerebrovascular disease with dementia. 4. Acute on chronic diastolic congestive heart failure. 5. Mild degenerative valve disease involving aortic insufficiency presently of no hemodynamic significance. 6. Diastolic dysfunction with no signs of acute congestive heart failure. PLAN: 1. Conservative management. 2. Serial troponins. 3. Optimize antihypertensive control. 4. Anti-platelet therapy. 5. Aspiration precautions. 6. DVT prophylaxis. 7. Cardiac monitoring. 8. Topical nitrates. 9. Further recommendations to follow based on clinical response to initial intervention. Eligio Quiroz M.D. DR: BRENDA JOB#: [id number] CC:
[2019-10-19] MEDS: Nitroglycerin 2% oint pkt TOPIC SCH (23:16)
[2019-10-20] VITALS: BP 124/73
[2019-10-20] MEDS ORDERED: Atropine Inj 1mg/10ml Syr ONE (00:56)
--- NOTE | 2019-10-20 02:16 | NUR ---
NURSE NOTES: APPROX. AT 0100 NOTED ON A MONITOR PATIENT'S HR 34. PATIENT WAS DIFFICULT TO AROUSE. RAPID RESPONSE WAS CALLED. BP 105/45, RR 14, O2SAT 92 ON RA. HR ON A MONITOR 40'S-50'S. PLACED PATIENT ON 3LNC. PATIENT BECAME MORE RESPONSIVE. ATROPINE 0.5MG GIVEN BY RAPID RESPONSE RN. BP139/82, HR 82. DR. MCGEE NOTIFIED. ORDERED TO DC HALDOL AND TO KEEP PATIENT ON TELE . WILL CONTINUE TO MONITOR PATIENT.
[2019-10-20 04:00] VITALS: BP 137/77
--- NOTE | 2019-10-20 04:24 | NUR ---
NURSE NOTES: PATIENT AGITATED, REMOVING TELE BOX AND GOWN, TRYING TO PULL IV OUT. REORIENTED PATIENT TO ENVIRONMENT WITHOUT SUCCESS. PATIENT REMAINS CONFUSED. WILL CONTINUE TO MONITOR.
[2019-10-20] MEDS: Nitroglycerin 2% oint pkt TOPIC SCH ×3 (06:00→18:23)
--- NOTE | 2019-10-20 07:15 | History and Physical Report ---
DATE OF ADMISSION: 10/19/2019 CHIEF COMPLAINT: Chest pain. HISTORY OF PRESENT ILLNESS: The patient is an 89-year-old female, well known to me. She currently resides in a long term facility. She has a history of dementia. She is legally blind. She has a questionable history of atrial fibrillation as well as a history of stable angina. She presented with complaints of chest pain. The patient is confused at baseline and is a poor historian. According to nursing staff, the patient complained of chest pain that was unrelieved with nitroglycerin. Paramedics were called and the patient was brought to the emergency room. On evaluation here, she continued to have chest pain. Her initial troponin was negative. EKG was unchanged in light of her chest pain though she is admitted for further evaluation and care. PAST MEDICAL HISTORY: As above. PAST SURGICAL HISTORY: Unknown. CURRENT MEDICATIONS: Reconciled and reviewed. ALLERGIES: None. FAMILY HISTORY: None. SOCIAL HISTORY: There is no known history of tobacco, ethanol, or drugs. REVIEW OF SYSTEMS: Unobtainable as the patient is confused. PHYSICAL EXAMINATION: VITAL SIGNS: Temperature 98 degrees, pulse 81, respirations 20, blood pressure 137/77. GENERAL: The patient is well developed, no apparent distress. HEART: Regular rate and rhythm. LUNGS: Clear. ABDOMEN: Soft, nontender, nondistended. EXTREMITIES: Without clubbing, cyanosis, or edema. LABORATORY DATA: Sodium 138, potassium 4.5, creatinine was 0.6. Troponin 0.003. White count 8. ASSESSMENT: This is an elderly female admitted with complaints of chest pain, suspect noncardiac. PROBLEM LIST: 1. Atypical chest pain. 2. History of stable angina. 3. Questionable history of AFib. 4. Bradycardia. 5. Hypertension. 6. History of dementia. PLAN: 1. Continue antiplatelet therapy. 2. PRN nitrates. 3. We will trend troponins. 4. Check venous duplex. 5. Check an echo. 6. Cardiology consultation will be obtained. Kemar Ly M.D. DR: SOLOMON JOB#: [id number] CC:
--- NOTE | 2019-10-20 07:18 | NUR ---
HAND-OFF: Report given to Jackeline PINEDA RN. PATIENT ASLEEP, NO SIGNS OF DISTRESS NOTED. SITTER AT BEDSIDE.
--- NOTE | 2019-10-20 07:46 | NUR ---
NURSE NOTES: Received report from GREGG Arriola. Patient in bed resting, no active s/s cardiac, respiratory distress noticed at this time. Patient AOx0, rambling speech, open eyes spontaneously, on room air, sitter at the bedside, Trevon IV on left FA 20G, asymptomatic, patent, intact at this time. SR with HR 63. Endorsed DIGITAL PHOTO PRINTER was called for bradycardiac, decrease in responsiveness. Bed in lowest position, side rails up x3, call light within reach, bed alarm on. Will continue to monitor.
[2019-10-20 08:00] VITALS: BP 123/55
[2019-10-20] MEDS: Multivitamin w/Minerals tab ORAL SCH (08:58)
[2019-10-20] MEDS: Docusate 100mg cap ORAL SCH (08:58)
[2019-10-20] MEDS: Milk of Magnesia 30ml Ud ORAL SCH (08:58)
[2019-10-20] MEDS: Aspirin Baby 81mg ORAL SCH (08:58)
[2019-10-20] MEDS: Heparin 5000 units/ml inj SUBQ SCH ×2 (09:00→20:40)
[2019-10-20 11:06] LABS: CHOLESTEROL 214 MG/DL (< 200); HDL CHOLESTEROL 47 MG/DL (40-60); TRIGLYCERIDES 90 MG/DL (30-150)
[2019-10-20 12:00] VITALS: BP_SYST 132; BP_SYST 165; BP_DIAS 74
--- NOTE | 2019-10-20 12:43 | Diagnostic Imaging Report ---
Indication: Chest pain. Comparison: 06/04/2019 A single view chest radiograph was obtained. Findings: No definite infiltrate or pulmonary vascular congestion identified. The heart is enlarged. The aorta is mildly enlarged consistent with atherosclerotic vascular disease. The bones are osteopenic. Impression: No acute disease
[2019-10-20] MEDS ORDERED: DOCUSATE SODIU100 MG ORAL (14:24)
[2019-10-20 16:00] VITALS: BP 112/58
--- NOTE | 2019-10-20 16:10 | NUR ---
CASE MANAGEMENT:REVIEW 89YR OLD FEMALE BIBA FROM [facility] CC: CHEST PAIN SI: ACS DEMENTIA WITH BEHAVORIAL DISTURBANCES 85 16 202/107 98% ON RA TROPONIN(-) IS: 500CC NS BOLUS ASA MA HALDOL IM CHEST XRAY : TO TELEMETRY
[2019-10-20] MEDS: LORazepam 0.5mg tab ORAL PRN (18:23)
--- NOTE | 2019-10-20 19:05 | NUR ---
NURSE NOTES: Received report from GREGG Miles. Patient in bed resting, no s/s cardiac, respiratory distress noticed at this time. Patient AOx1, rambling speech, open eyes spontaneously, on room air, sitter at the bedside. IV on left FA 20G, asymptomatic, patent, intact at this time. Bed in lowest position, side rails up x3, call light within reach, bed alarm on. Will continue to monitor.
--- NOTE | 2019-10-20 19:14 | Cardiology Report ---
APPROVED REPORT EKG Measurement Heart [id number] Normal sinus rhythm Left anterior fascicular block Possible Lateral infarct, age undetermined Abnormal ECG
--- NOTE | 2019-10-20 19:29 | NUR ---
HAND-OFF: Report given to GREGG Gonzalez.
[2019-10-20 20:00] VITALS: BP 111/69
[2019-10-20] MEDS ORDERED: HydrALAZINE 10mg Tab ORAL PRN (23:30)
[2019-10-21] VITALS: BP 105/59
--- NOTE | 2019-10-21 00:45 | Progress Note ---
DATE: 10/20/2019 CARDIOLOGY PROGRESS NOTE SUBJECTIVE: The patient had Rapid Response called early this morning. She was bradycardic during sleep. Junctional rhythm in the 30s was noted with subsequent sinus bradycardia in the 40s. The patient was asleep and initially difficult to arouse. She apparently became more responsive after being placed on oxygen. She was given a dose of atropine. These events occurred after receiving a dose of Haldol earlier in the evening because of agitation. There have been no recurrent episodes of any sinus bradycardic episodes. Subsequently, the patient does not have chest pain. OBJECTIVE: GENERAL: Confused. Sitter at bedside. No shortness of breath. VITAL SIGNS: Blood pressure 132/74, pulse 63, respirations 18, and oxygen saturation 99% on room air. LUNGS: Diminished breath sounds. CARDIAC: Regular rhythm and rate. Normal S1, S2 with a fourth heart sound. ABDOMEN: Soft. EXTREMITIES: No edema. LABORATORY DATA: Troponins are negative. Total cholesterol 214, LDL 133, HDL 47. TSH 1.6. IMPRESSION: 1. Possible acute coronary syndrome. 2. Dementia with agitation. 3. Sinus node disease with asymptomatic bradycardia during sleep and episode of junctional rhythm following dose of Haldol. 4. Possible history of paroxysmal atrial fibrillation. 5. Dyslipidemia. 6. Hypertensive heart disease. PLAN: 1. Continue cardiac monitoring. 2. Avoid all medications with negative chronotropic potential. 3. Clonidine as such will be discontinued. 4. Haldol has been discontinued. 5. Maintaining topical nitrates. 6. Avoiding beta-blockers. 7. Continue anti-platelet therapy. 8. Add statin drug. Eligio Quiroz M.D. DR: BYRON JOB#: [id number] CC:
[2019-10-21 04:00] VITALS: BP 160/61
[2019-10-21] MEDS: Nitroglycerin 2% oint pkt TOPIC SCH ×3 (05:33→18:29)
--- NOTE | 2019-10-21 07:26 | NUR ---
HAND-OFF: Report given to GREGG Coates. Patient stable at hand-off, with sitter at bedside.
--- NOTE | 2019-10-21 07:30 | NUR ---
NURSE NOTES: Received report from Lisa/RN, Patient is asleep, Lying semi-nash's, resting comfortably. On room air, No acute distress/SOB noted. Denies pain at this time. Sinus rhythm on the monitor. IV on Left FA patent, No infiltration or bleeding noted. Sitter at bedside. Bed in low position and locked, Bed alarm engaged. Call light within reach, Encouraged to use call light when needed. Will continue plan of care.
[2019-10-21 08:41] VITALS: BP 114/57
[2019-10-21] MEDS: Multivitamin w/Minerals tab ORAL SCH (09:29)
[2019-10-21] MEDS: Aspirin Baby 81mg ORAL SCH (09:29)
[2019-10-21] MEDS: Milk of Magnesia 30ml Ud ORAL SCH (09:29)
[2019-10-21] MEDS: Docusate 100mg cap ORAL SCH (09:29)
[2019-10-21] MEDS: Heparin 5000 units/ml inj SUBQ SCH ×2 (09:30→21:20)
--- NOTE | 2019-10-21 09:54 | General Progress Note ---
Assessment/Plan Problem List: (1) MDD (major depressive disorder) ICD Codes: F32.9 - Major depressive disorder, single episode, unspecified SNOMED: 475840543 (2) Dehydration ICD Codes: E86.0 - Dehydration SNOMED: 50050085 (3) Failure to thrive SNOMED: 13586358 (4) Acute encephalopathy ICD Codes: G93.40 - Encephalopathy, unspecified SNOMED: 67860148, 299459092 (5) Multi-infarct dementia ICD Codes: F01.50 - Vascular dementia without behavioral disturbance SNOMED: 76648820 (6) Dementia with behavioral disturbance ICD Codes: F03.91 - Unspecified dementia with behavioral disturbance SNOMED: 9331434992155 Qualifiers: Qualified Codes: F03.91 - Unspecified dementia with behavioral disturbance (7) ACS (acute coronary syndrome) ICD Codes: I24.9 - Acute ischemic heart disease, unspecified SNOMED: 155145371 Status: stable, progressing Assessment/Plan: cont current rx monitor for bradycardia anxiolytics as needed check venous duplex statin rx Subjective ROS Limited/Unobtainable: Yes Constitutional: Reports: malaise, weakness HEENT: Reports: no symptoms Cardiovascular: Reports: chest pain Respiratory: Reports: no symptoms Gastrointestinal/Abdominal: Reports: no symptoms Genitourinary: Reports: no symptoms Neurologic/Psychiatric: Reports: emotional problems Endocrine: Reports: no symptoms Hematologic/Lymphatic: Reports: no symptoms Allergies: Coded Allergies: No Known Allergies (Unverified , 06/04/19) All Systems: reviewed and negative except above Subjective no events. w/o complaints. still with bradycardia. no complaints of CP. labs reviewed Objective Last 24 Hour Vital Signs Date Time Temp Pulse Resp B/P (MAP) Pulse Ox O2 Delivery O2 Flow Rate FiO2 10/21/19 08:41 98.9 62 17 114/57 (76) 98 10/21/19 05:33 160/61 10/21/19 04:00 97.8 64 18 160/61 (94) 98 10/21/19 04:00 53 10/21/19 00:00 57 10/21/19 00:00 97.6 52 19 105/59 (74) 97 10/20/19 21:00 Room Air 10/20/19 20:00 64 10/20/19 20:00 97.4 66 18 111/69 (83) 91 10/20/19 18:23 112/58 10/20/19 16:00 79 10/20/19 16:00 97.6 76 18 112/58 (76) 98 10/20/19 12:46 132/74 10/20/19 12:00 63 10/20/19 12:00 97.6 75 18 132/74 (93) 99 Intake and Output 10/20/19 10/21/19 18:59 06:59 Intake Total 480 ml Balance 480 ml Intake Oral 480 ml # Voids 3 4 # Bowel Movements 1 Height (Feet): 5 Height (Inches): 5.00 Weight (Pounds): 130 General Appearance: WD/WN, alert Neck: supple Cardiovascular: normal rate Respiratory/Chest: chest wall non-tender, lungs clear, normal breath sounds, no respiratory distress Abdomen: normal bowel sounds, soft, no organomegaly Edema: no edema noted Arm (L), no edema noted Arm (R), no edema noted Leg (L), no edema noted Leg (R), no edema noted Pedal (L), no edema noted Pedal (R), no edema noted Generalized Neurologic: alert - Kemar Ly MD Oct 21, 2019 09:54
[2019-10-21 12:00] VITALS: BP 119/61
[2019-10-21 16:00] VITALS: BP 130/90
--- NOTE | 2019-10-21 17:30 | Consultation ---
DATE OF CONSULTATION: 10/21/2019 CONSULTING PHYSICIAN: Gus Randle M.D. HISTORY OF PRESENT ILLNESS: This is an 89-year-old female, who is known to this physician from [place]. The patient has a history of depression, dementia, acute encephalopathy, failure to thrive, and dehydration. The patient has not been eating, is anxious and getting agitated. The patient is currently on one-to-one. PAST PSYCHIATRIC HISTORY: Dementia and anxiety disorder. PAST MEDICAL HISTORY: As above. ALLERGIES: No known drug allergies. SUBSTANCE USE HISTORY: No known history of illicit drug use or alcohol. MENTAL STATUS EXAMINATION: The patient is alert and oriented times to self only. Mood is depressed. Affect is constricted, congruent with mood. Thought process, linear and goal oriented. Thought content, no suicidal or homicidal ideation. ASSESSMENT: AXIS I: Major depressive disorder. AXIS II: Deferred. AXIS III: As above. AXIS IV: Low. AXIS V: 20. PLAN: 1. We will start the patient on Remeron 15 mg at bedtime. 2. Discontinue the Celexa. 3. Discontinue the one-to-one. 4. Provide the patient with reality orientation and supportive therapy. Gus Randle M.D. DR: CAESAR JOB#: [id number] CC:
--- NOTE | 2019-10-21 19:12 | NUR ---
NURSE NOTES: Received report from GREGG Coates. pt resting in bed, Awake, oriented to self. no agitation noted, no c/o pain noted. bed alarm on.
--- NOTE | 2019-10-21 19:25 | NUR ---
HAND-OFF: Report given to Toi/RN, Patient is in stable condition. Endorsed plan of care.
[2019-10-21 20:00] VITALS: BP 135/77
--- NOTE | 2019-10-21 21:20 | NUR ---
NURSE NOTES: Crushed meds and given w/ apple sauce, HOB up. Pt swallows meds well. fidgetting with blankets, VSS. Repositioned pt, bed alarm on.
[2019-10-22] VITALS: BP 148/74
--- NOTE | 2019-10-22 00:45 | Progress Note ---
DATE: 10/21/2019 CARDIOLOGY PROGRESS NOTE SUBJECTIVE: The patient has no new complaints. Episodes of bradycardia are noted, but no pauses. No associated hemodynamic compromise. OBJECTIVE: VITAL SIGNS: Blood pressure 114/57, pulse 63, respirations 17. LUNGS: Clear. CARDIAC: Regular. Normal S1, S2. ABDOMEN: Soft. EXTREMITIES: No edema. LABORATORY AND DIAGNOSTIC DATA: No new laboratories today. A venous duplex study revealed no DVT. IMPRESSION: 1. 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 2. Sinus node disease with asymptomatic bradycardia. PLAN: 1. Continue cardiac monitoring. 2. Continue anti-platelet and statin therapy. 3. As needed nitrates for chest pain. 4. Discontinue topical nitrates for now. 5. Currently, no indication for permanent pacing. 6. Psych therapy. 7. Avoid neuroleptics. Eligio Quiroz M.D. DR: BYRON JOB#: [id number] CC:
--- NOTE | 2019-10-22 02:30 | NUR ---
NURSE NOTES: Pt finally is sleeping at this time, no apparent discomfort noted even with fidgeting w/ the blankets earlier. VSS stable
[2019-10-22 04:00] VITALS: BP 148/72
--- NOTE | 2019-10-22 05:00 | NUR ---
NURSE NOTES: Partial bath provided and repositioned. Pt is incontinent, good output. tolerated activity. VSS
--- NOTE | 2019-10-22 07:00 | NUR ---
HAND-OFF: Report given to GREGG Coates.
--- NOTE | 2019-10-22 07:01 | NUR ---
NURSE NOTES: Received report from Lisa/RN, Patient is asleep, Lying semi-nash's, resting comfortably. On room air, No acute distress/SOB noted. Denies pain at this time. Sinus rhythm on the monitor. IV on Left FA patent, No infiltration or bleeding noted. Bed in low position and locked, Bed alarm engaged. Call light within reach, Encouraged to use call light when needed. Will continue plan of care.
[2019-10-22 08:00] VITALS: BP 157/74
[2019-10-22 08:17] LABS: BASOPHILS % (AUTO) 1.4 % (0.0-2.0); EOSINOPHILS % (AUTO) 5.9 % (0.0-3.0); HEMOGLOBIN 11.9 G/DL (12.0-16.0); LYMPHOCYTES % (AUTO) 23.3 % (20.0-45.0); MEAN CORPUSCULAR VOLUME 90 FL (80-99); MONOCYTES % (AUTO) 11.9 % (1.0-10.0); NEUTROPHILS % (AUTO) 57.5 % (45.0-75.0); PLATELET COUNT 218 K/UL (150-450); RED BLOOD COUNT 4.11 M/UL (4.20-5.40); RED CELL DISTRIBUTION WIDTH 13.2 % (11.6-14.8); WHITE BLOOD COUNT 6.3 K/UL (4.8-10.8)
--- NOTE | 2019-10-22 08:23 | General Progress Note ---
Assessment/Plan Problem List: (1) MDD (major depressive disorder) ICD Codes: F32.9 - Major depressive disorder, single episode, unspecified SNOMED: 068849020 (2) Dehydration ICD Codes: E86.0 - Dehydration SNOMED: 38217741 (3) Failure to thrive SNOMED: 13662818 (4) Acute encephalopathy ICD Codes: G93.40 - Encephalopathy, unspecified SNOMED: 61403073, 339714515 (5) Multi-infarct dementia ICD Codes: F01.50 - Vascular dementia without behavioral disturbance SNOMED: 05620485 (6) Dementia with behavioral disturbance ICD Codes: F03.91 - Unspecified dementia with behavioral disturbance SNOMED: 3722288906301 Qualifiers: Qualified Codes: F03.91 - Unspecified dementia with behavioral disturbance (7) ACS (acute coronary syndrome) ICD Codes: I24.9 - Acute ischemic heart disease, unspecified SNOMED: 863012257 Status: stable, progressing Assessment/Plan: cont current rx monitor for bradycardia anxiolytics as needed check venous duplex statin rx Subjective ROS Limited/Unobtainable: Yes Constitutional: Reports: malaise, weakness HEENT: Reports: no symptoms Cardiovascular: Reports: no symptoms Respiratory: Reports: no symptoms Gastrointestinal/Abdominal: Reports: no symptoms Genitourinary: Reports: no symptoms Neurologic/Psychiatric: Reports: pre-existing deficit Endocrine: Reports: no symptoms Hematologic/Lymphatic: Reports: anemia Allergies: Coded Allergies: No Known Allergies (Unverified , 06/04/19) All Systems: reviewed and negative except above Subjective no events. w/o complaints. still with bradycardia. no complaints of CP. labs reviewed confused and agitated at time. no fevers. Objective Last 24 Hour Vital Signs Date Time Temp Pulse Resp B/P (MAP) Pulse Ox O2 Delivery O2 Flow Rate FiO2 10/22/19 04:00 50 10/22/19 04:00 97.2 58 18 148/72 (97) 97 10/22/19 00:00 97.7 64 20 148/74 (98) 97 10/22/19 00:00 64 10/21/19 21:00 Room Air 10/21/19 20:00 97.6 71 20 135/77 (96) 98 10/21/19 20:00 71 10/21/19 18:29 130/90 12/3/19 16:00 97.6 75 18 130/90 (103) 97 10/21/19 16:00 64 10/21/19 13:20 114/57 10/21/19 12:00 97.9 67 18 119/61 (80) 98 10/21/19 12:00 54 10/21/19 09:00 Room Air 10/21/19 08:41 98.9 62 17 114/57 (76) 98 Intake and Output 10/21/19 10/22/19 19:00 07:00 Intake Total 120 ml Balance 120 ml Intake Oral 120 ml # Voids 3 2 # Bowel Movements 1 2 Laboratory Tests 10/22/19 07:05: White Blood Count 6.3, Red Blood Count 4.11L, Hemoglobin 11.9L, Hematocrit 37.0 , Mean Corpuscular Volume 90, Mean Corpuscular Hemoglobin 28.9, Mean Corpuscular Hemoglobin Concent 32.1, Red Cell Distribution Width 13.2, Platelet Count 218, Mean Platelet Volume 7.3, Neutrophils (%) (Auto) 57.5, Lymphocytes (% ) (Auto) 23.3, Monocytes (%) (Auto) 11.9H, Eosinophils (%) (Auto) 5.9H, Basophils (%) (Auto) 1.4, Sodium Level [Pending], Potassium Level [Pending], Chloride Level [Pending], Carbon Dioxide Level [Pending], Blood Urea Nitrogen [ Pending], Creatinine [Pending], Estimat Glomerular Filtration Rate [Pending], Glucose Level [Pending], Calcium Level [Pending], Magnesium Level [Pending], Total Bilirubin [Pending], Aspartate Amino Transf (AST/SGOT) [Pending], Alanine Aminotransferase (ALT/SGPT) [Pending], Alkaline Phosphatase [Pending], Pro-B- Type Natriuretic Peptide [Pending], Total Protein [Pending], Albumin [Pending], Globulin [Pending] Height (Feet): 5 Height (Inches): 5.00 Weight (Pounds): 122 Objective General Appearance: WD/WN, alert Neck: supple Cardiovascular: normal rate Respiratory/Chest: chest wall non-tender, lungs clear, normal breath sounds, no respiratory distress Abdomen: normal bowel sounds, soft, no organomegaly Edema: no edema noted Arm (L), no edema noted Arm (R), no edema noted Leg (L), no edema noted Leg (R), no edema noted Pedal (L), no edema noted Pedal (R), no edema noted Generalized Neurologic: alert, confused. agitated at times Kemar Ly MD Oct 22, 2019 08:23
[2019-10-22 08:48] LABS: ALANINE AMINOTRANSFERASE 22 U/L (12-78); ALBUMIN 2.9 G/DL (3.4-5.0); ALBUMIN/GLOBULIN RATIO 0.7 (1.0-2.7); ALKALINE PHOSPHATASE 83 U/L (46-116); ANION GAP 9 mmol/L (5-15); ASPARTATE AMINO TRANSFERASE 26 U/L (15-37); BILIRUBIN,TOTAL 0.7 MG/DL (0.2-1.0); BLOOD UREA NITROGEN 14 mg/dL (7-18); CARBON DIOXIDE 26 MMOL/L (21-32); CHLORIDE 106 MMOL/L (98-107); CREATININE 0.5 MG/DL (0.55-1.30); POTASSIUM 4.2 MMOL/L (3.5-5.1); SODIUM 141 MMOL/L (136-145)
[2019-10-22] MEDS: Milk of Magnesia 30ml Ud ORAL SCH (09:37)
[2019-10-22] MEDS: Multivitamin w/Minerals tab ORAL SCH (09:37)
[2019-10-22] MEDS: Aspirin Baby 81mg ORAL SCH (09:37)
[2019-10-22] MEDS: Heparin 5000 units/ml inj SUBQ SCH ×2 (09:38→20:23)
[2019-10-22] MEDS: Docusate 100mg cap ORAL SCH (09:38)
--- NOTE | 2019-10-22 10:16 | Diagnostic Imaging Report ---
APPROVED REPORT CPT Code: 47882 Present Symptoms Lower Extremity Pain: Bilateral Comments: Technically difficult and limited due to patient's Altered mental status BILATERAL: Imaging reveals a patent deep venous system bilaterally. There is no evidence of thrombus within the femoral, popliteal or tibial segments. The greater saphenous veins are also within normal limits. Doppler indicates normal spontaneous flow within these segments.
--- NOTE | 2019-10-22 10:32 | NUR ---
CASE MANAGEMENT:REVIEW 10/22/19 SI: ACUTE ENCEPHALOPATHY. ACS 96.6 63 20 157/74 98% ON RA IS: REMERON PO QHS ASA PO QD MVI PO QD PROTONIX PO Q12 HEPARIN SQ Q12 : TELEMETRY STATUS DCP: FROM [facility]
--- NOTE | 2019-10-22 10:45 | NUR ---
DISCHARGE PLANNING CLINICALS FAXED TO [facility] T: [phone] SPOKE WITH MARIAH AT [facility] WHO STATED PATIENT IS ACCEPTED BACK TO ROOM 23B AWAIT DISCHARGE ORDER MRSA AND VRE NEED TO BE COLONIZED
[2019-10-22 12:00] VITALS: BP 140/71
--- NOTE | 2019-10-22 15:30 | Progress Note ---
DATE: 10/22/2019 SUBJECTIVE: The patient is the same. The patient is calm, no behavior issues noted. The patient is calmer, more manageable. Last night, she was agitated and received another dose of Zyprexa. MENTAL STATUS EXAMINATION: The patient is asleep, arousable, confused, disoriented. Mood is anxious. Affect is flat. Thought process is concrete. Thought content, no suicidal or homicidal ideation. Cognition is impaired. Insight and judgment is non-existent. ASSESSMENT: Dementia with behavior disturbance. PLAN: 1. We will continue current psychotropic medications. 2. Provide the patient with reality orientation and supportive therapy. Gus Randle M.D. DR: Justin JOB#: [id number] CC:
[2019-10-22 16:00] VITALS: BP 134/72
--- NOTE | 2019-10-22 19:25 | NUR ---
NURSE NOTES: Received report from Tatiana Coates, pt. received in bed awake, pt. appears to be alert to name, no signs or symptoms of acute cardiac or respiratory distress noted, bed alarm on, side rails u p x's3 and safety brakes engaged, pt. appears to be sating well on room air- no distress noted, call light within easy reach, LFA 20G IV intact and patent, comfort measures provided, repositioned and turned pt. safety measures continued, will continue with plan of care. Addendum: 10/22/19 at 2115 by DIALLO DENIS RN RN bilateral wrist restraints removed - pulses palpable and skin intact. Addendum: 10/23/19 at 0136 by DIALLO DENIS RN RN correction to message above regarding pt. is not on restraints.
--- NOTE | 2019-10-22 19:39 | NUR ---
HAND-OFF: Report given to Nikki/RN, Patient is in stable condition. Endorsed plan of care.
[2019-10-22 20:00] VITALS: BP 132/71
--- NOTE | 2019-10-22 22:45 | Progress Note ---
DATE: 10/22/2019 CARDIOLOGY PROGRESS NOTE SUBJECTIVE: The patient with less agitation. Psych therapy reviewed. Monitor with sinus at night, sinus bradycardia during sleep in the 40s this morning at 4 a.m. OBJECTIVE: VITAL SIGNS: Blood pressure 148/72, heart rate 50, respirations 18. During the day, heart rates in the 60 to 70 range. LUNGS: Clear. CARDIAC: Regular. ABDOMEN: Soft. EXTREMITIES: No edema. Venous duplex negative for DVT. IMPRESSION: 1. No signs of acute coronary insufficiency. 2. Asymptomatic sinus node disease. No definitive indication for pacemaker at this time. 3. Dementia with agitation. Presently off psych medications. PLAN: 1. Continue cardiac monitoring. 2. Maintain current cardiovascular regimen. 3. As stated no definitive indication for permanent pacemaker. 4. Check orthostatics. 5. Mobilize as able. Eligio Quiroz M.D. DR: TABBY JOB#: [id number] CC:
[2019-10-23] VITALS: BP 107/54
--- NOTE | 2019-10-23 00:52 | NUR ---
NURSE NOTES: unable to do ortho static VS standing up - pt. unable to stand.
[2019-10-23 04:00] VITALS: BP 138/74
--- NOTE | 2019-10-23 07:05 | NUR ---
NURSE NOTES: Received report from Nikki/RN, Patient is asleep, Lying semi-nash's, resting comfortably. On room air, No acute distress/SOB noted. Sinus rhythm on the monitor. IV on Left FA patent, No infiltration or bleeding noted. Bed in low position and locked, Bed alarm engaged. Call light within reach, Encouraged to use call light when needed. Will continue plan of care.
--- NOTE | 2019-10-23 07:06 | NUR ---
HAND-OFF: Report given to Aminata RN, pt. remians stable and no signs of distress noted. Nurse aware to f/u on am labs.
--- NOTE | 2019-10-23 07:10 | General Progress Note ---
Assessment/Plan Problem List: (1) MDD (major depressive disorder) ICD Codes: F32.9 - Major depressive disorder, single episode, unspecified SNOMED: 932942132 (2) Dehydration ICD Codes: E86.0 - Dehydration SNOMED: 05377066 (3) Failure to thrive SNOMED: 55042663 (4) Acute encephalopathy ICD Codes: G93.40 - Encephalopathy, unspecified SNOMED: 83088305, 666883835 (5) Multi-infarct dementia ICD Codes: F01.50 - Vascular dementia without behavioral disturbance SNOMED: 22065992 (6) Dementia with behavioral disturbance ICD Codes: F03.91 - Unspecified dementia with behavioral disturbance SNOMED: 2132637985717 Qualifiers: Qualified Codes: F03.91 - Unspecified dementia with behavioral disturbance (7) ACS (acute coronary syndrome) ICD Codes: I24.9 - Acute ischemic heart disease, unspecified SNOMED: 399331377 Status: stable, progressing Assessment/Plan: cont current rx monitor for bradycardia anxiolytics as needed statin rx dc planning if ok with cards Subjective ROS Limited/Unobtainable: No Constitutional: Reports: malaise, weakness HEENT: Reports: no symptoms Cardiovascular: Reports: no symptoms Respiratory: Reports: cough, shortness of breath Gastrointestinal/Abdominal: Reports: no symptoms Genitourinary: Reports: no symptoms Neurologic/Psychiatric: Reports: anxiety, emotional problems Endocrine: Reports: no symptoms Hematologic/Lymphatic: Reports: no symptoms Allergies: Coded Allergies: No Known Allergies (Unverified , 06/04/19) Subjective no events. w/o complaints. still with bradycardia- as low as 40. no complaints of CP. labs reviewed confused and agitated at time. no fevers. Objective Last 24 Hour Vital Signs Date Time Temp Pulse Resp B/P (MAP) Pulse Ox O2 Delivery O2 Flow Rate FiO2 10/23/19 04:00 97.0 54 16 138/74 (95) 98 10/23/19 03:33 56 10/23/19 00:49 62 63 10/23/19 00:00 96.8 62 16 107/54 (71) 96 10/22/19 23:35 59 10/22/19 21:00 Room Air 10/22/19 20:00 97.0 56 18 132/71 (91) 97 10/22/19 19:06 60 10/22/19 16:00 77 12/4/19 16:00 96.6 63 18 134/72 (92) 90 10/22/19 12:00 96.5 73 18 140/71 (94) 98 10/22/19 12:00 73 10/22/19 09:00 Room Air 10/22/19 08:00 96.6 63 20 157/74 (101) 98 10/22/19 08:00 52 Intake and Output 10/22/19 10/23/19 19:00 07:00 Intake Total 140 ml Output Total 500 ml Balance -360 ml Intake Oral 140 ml Output Urine Total 500 ml # Voids 2 2 Height (Feet): 5 Height (Inches): 5.00 Weight (Pounds): 122 Objective General Appearance: WD/WN, alert Neck: supple Cardiovascular: normal rate Respiratory/Chest: chest wall non-tender, lungs clear, normal breath sounds, no respiratory distress Abdomen: normal bowel sounds, soft, no organomegaly Edema: no edema noted Arm (L), no edema noted Arm (R), no edema noted Leg (L), no edema noted Leg (R), no edema noted Pedal (L), no edema noted Pedal (R), no edema noted Generalized Neurologic: alert, confused. agitated at times Kemar Ly MD Oct 23, 2019 07:10
[2019-10-23 08:00] VITALS: BP 144/73
[2019-10-23] MEDS: Milk of Magnesia 30ml Ud ORAL SCH (10:16)
[2019-10-23] MEDS: Multivitamin w/Minerals tab ORAL SCH (10:17)
[2019-10-23] MEDS: Docusate 100mg cap ORAL SCH (10:17)
[2019-10-23] MEDS: Aspirin Baby 81mg ORAL SCH (10:17)
[2019-10-23] MEDS: Heparin 5000 units/ml inj SUBQ SCH ×2 (10:21→21:07)
[2019-10-23 12:00] VITALS: BP 119/68
--- NOTE | 2019-10-23 15:10 | Consultation ---
Consult Note Consult Note Cardiac EP Full consult dictated # [id number] Keyla La MD Oct 23, 2019 15:10
[2019-10-23 16:00] VITALS: BP 125/76
--- NOTE | 2019-10-23 19:25 | NUR ---
NURSE NOTES: Received pt and report from GREGG Coates. Observed pt resting in bed with both eyes open. Pt is A/Ox1-2. cardiac monitor is in placed, IV site intact, asymptomatic, and patent. Bed is in the lowest position and locked. Call light and bedside table is within reach. No signs/symptoms of acute distress noted at this time. Will continue plan of care.
--- NOTE | 2019-10-23 19:30 | Consultation ---
DATE OF CONSULTATION: 10/23/2019 CARDIAC ELECTROPHYSIOLOGY CONSULTATION CONSULTING PHYSICIAN: Keyla La M.D. REQUESTING PHYSICIAN: Eligio Quiroz M.D. REASON FOR CONSULT: Bradycardia. HISTORY OF PRESENT ILLNESS: History is obtained primarily from the chart. The patient is a limited historian due to dementia. She is an 89-year-old woman, convalescent facility resident with a history of hypertension, paroxysmal atrial fibrillation, previous CVA, and chronic obstructive pulmonary disease. She was transferred from the convalescent facility on 10/19/2019 after she had reported chest pain. In the emergency room, she was agitated and disoriented. She was not able to give a clear history. However, her EKG did not show acute ischemic changes and troponins were negative. Over the past few days, she has been noted to have sinus rates in the 40s and cardiac electrophysiology evaluation was requested. She is currently awake, alert, and oriented to person only. She does not know that she is in the hospital and does not know the date, month, or year, and is unable to give history of what happened to her. MEDICATIONS: Currently pravastatin 20 mg daily, Remeron 15 mg at bedtime, hydralazine 10 mg p.o. q.6 hours p.r.n. for systolic blood pressure over 150, aspirin 81 mg daily, Colace 100 mg daily, multivitamin 1 daily, Protonix 40 mg q.12 hours, subcutaneous heparin 5000 units q.12 hours, Tylenol p.r.n., and Ativan p.r.n. ALLERGIES: No known drug allergies. PAST MEDICAL HISTORY: As noted above. SOCIAL HISTORY: The patient denies tobacco or alcohol use. REVIEW OF SYSTEMS: Not obtainable from the patient or chart. PHYSICAL EXAMINATION: VITAL SIGNS: Pulse 50 regular, blood pressure 119/68, respirations 18, and afebrile. GENERAL: Alert, thin woman, in no acute distress. HEENT: Normocephalic and atraumatic. Pupils minimally reactive. Bilateral cataracts (patient is legally blind). Oral mucosa are moist. Dentition is fair with several missing front upper and lower teeth. NECK: Supple. There is no jugular venous distention. No carotid bruits. No thyromegaly. LUNGS: Clear to auscultation bilaterally. HEART: Regular. Bradycardic S1 and S2 with no murmur or S3. No rubs. ABDOMEN: Soft, nontender, and nondistended. No palpable mass. EXTREMITIES: No cyanosis, clubbing, or edema. NEUROLOGIC: Oriented to person only. Motor, the patient moves all extremities. Unable to test strength due to the patient's inability to cooperate with exam. LABORATORY DATA: Hemoglobin 11.9, white blood count 6300, and platelets 218,000. Sodium 141, potassium 4.2, chloride 106, bicarbonate 26, BUN 14, and creatinine 0.5. Troponin 0.03 on admission and repeat 0. TSH 1.6. EKG on admission was a technically poor tracing with a large amount of baseline artifact, but showed sinus rhythm at 78 beats per minute with occasional premature atrial complexes. Poor R-wave progression V1 to V2 and left anterior hemiblock. Chest x-ray from 10/19/2019 showed hyperinflated lung narayanan. No infiltrate, pulmonary vascular congestion, or effusion. Telemetry has shown sinus rates at times in the mid 40s with intact AV conduction and narrow QRS. Most of these episodes have been at night or during sleep and during the day. Heart rates for the most part appear, telemetry shows sinus rhythm, rates as low as 40s generally at night or during sleep during the day and up to 70s at times. Normal AV conduction. No AV block or pauses. ASSESSMENT AND RECOMMENDATIONS: The patient is an 89-year-old woman with a history of hypertension, chronic obstructive pulmonary disease, and dementia, who was admitted with chest pain. Her evaluation for an acute coronary syndrome has been negative. She has developed intermittent bradycardia, sinus bradycardia to the 40s generally at night. During the day or while awake, however her sinus rates appear normal. She has no evidence for hypothyroidism and is on no medications, which would cause bradycardia. She likely has some degree of intrinsic sinus node disease. However as she is asymptomatic and also given her limited mobility and functional status, permanent pacing is not indicated. I would recommend avoidance of all negative chronotropic and dromotropic agents and continue cardiac evaluation per her primary programming director, Dr. Quiroz. Keyla La M.D. DR: JONATHAN JOB#: [id number] CC:
--- NOTE | 2019-10-23 19:38 | NUR ---
HAND-OFF: Report given to Ashley/RN. Patient is lying semi-nash's, without distress, in stable condition. Endorsed plan of care.
[2019-10-23 20:00] VITALS: BP 116/67
--- NOTE | 2019-10-23 22:45 | Progress Note ---
DATE: 10/23/2019 CARDIOLOGY PROGRESS NOTE SUBJECTIVE: The patient was seen in consultation. The patient has had bradycardia during sleep, but asymptomatic. Heart rates are in the high 50s to 70s during the day time. No dizziness. No loss of consciousness. Monitor with no pauses. PHYSICAL EXAMINATION: VITAL SIGNS: Blood pressure 138/74, pulse 54, respirations 16, afebrile at 4 a.m. LUNGS: Clear. CARDIAC: Regular. Normal S1, S2. ABDOMEN: Soft. EXTREMITIES: No edema. IMPRESSION: 1. Asymptomatic sinus node disease. 2. Hypertensive heart disease. 3. Dementia with psychosis. PLAN: 1. No additional cardiovascular interventions are presently indicated. 2. No indication for permanent pacemaker at this time. 3. Stable for lower level of care from cardiovascular standpoint. 4. Discharge medication regimen will be reviewed at the time of discharge. Eligio Quiroz M.D. DR: PATTI JOB#: [id number] CC:
[2019-10-24] VITALS: BP 146/65
[2019-10-24 04:00] VITALS: BP 139/90
--- NOTE | 2019-10-24 04:15 | Progress Note ---
DATE: 10/23/2019 SUBJECTIVE: The patient is asleep, arousable, had bradycardia during her sleep, confused, and episodes of anxiety and agitation. MENTAL STATUS EXAMINATION: Alert and oriented times self and place. Mood is anxious. Affect is constricted. Congruent with mood. Thought process, concrete. Thought content, no suicidal or homicidal ideation. Cognition is impaired. Insight and judgment are fair. PLAN: Continue current medication. Gus Randle M.D. DR: SHARATH JOB#: [id number] CC:
--- NOTE | 2019-10-24 07:49 | NUR ---
HAND-OFF: Report given to GREGG Webb. Plan of care endorsed.
[2019-10-24 08:00] VITALS: BP 105/63
--- NOTE | 2019-10-24 08:10 | NUR ---
NURSE NOTES: Patient stable, sleeping with no s/sx of distress. RR even and unlabored on RA. Side rails upx2, call light within reach, bed low and locked. Will continue to monitor.
[2019-10-24] MEDS: Multivitamin w/Minerals tab ORAL SCH ×2 (08:28→09:00)
[2019-10-24] MEDS: Milk of Magnesia 30ml Ud ORAL SCH ×2 (08:28→09:00)
[2019-10-24] MEDS: Docusate 100mg cap ORAL SCH ×2 (08:28→09:00)
[2019-10-24] MEDS: Aspirin Baby 81mg ORAL SCH ×2 (08:29→09:00)
[2019-10-24] MEDS: Heparin 5000 units/ml inj SUBQ SCH (08:29)
[2019-10-24] MEDS ORDERED: APRESOLINE10 MG ORAL (08:44)
[2019-10-24] MEDS ORDERED: MIRTAZAPINE15 M3 ORAL (08:44)
--- NOTE | 2019-10-24 10:29 | NUR ---
DISCHARGE PLANNED PATIENT IS DISCHARGING TO [facility] ROOM 23B SKILLED T: [phone] [facility] HAS BEEN ARRANGED FOR 1230 [employer] BAIT PROCESSING
[2019-10-24 12:00] VITALS: BP 107/71
--- NOTE | 2019-10-24 12:55 | NUR ---
NURSE NOTES: Patient repositioned and fed. Patient clean and dry at this time. Rah Marroquin called and report given to Lupe.
--- NOTE | 2019-10-24 15:02 | NUR ---
NURSE NOTES: Patient discharged via ambulance. AOx1 and confused. RR even and unlabored on RA. Socks at bedside sent with patient. No other belongings noted. IV d/ch, heart monitor taken off.
--- NOTE | 2019-10-25 02:15 | Discharge Summary ---
DATE OF ADMISSION: 10/19/2019 DATE OF DISCHARGE: 10/24/2019 ADMISSION DIAGNOSES: 1. Chest pain. 2. History of ischemic cardiomyopathy. 3. Toxic metabolic encephalopathy. 4. Hypertension. DISCHARGE DIAGNOSES: 1. Chest pain. 2. History of ischemic cardiomyopathy. 3. Toxic metabolic encephalopathy. 4. Hypertension. HOSPITAL COURSE: The patient is a pleasant female with complaints of chest pain. She was ruled out for [place] with serial enzymes and EKGs. Cardiology consultation was obtained. She was noted to have bradycardia as well as 40. EP consultation was also obtained. It was determined that the patient did not require pacemaker. She will be discharged back to the [facility] facility. Heart rate will be monitored closely there. DISCHARGE MEDICATIONS: Please see discharge medication list for discharge medications. DIET: Cardiac diet. ACTIVITIES: Ad-migel. FOLLOWUP: The patient will follow up in 1 to 2 days at [facility] facility. Kemar Ly M.D. DR: LEONILA JOB#: [id number] CC:
--- NOTE | 2019-10-25 03:02 | Progress Note ---
DATE: 10/24/2019 CARDIOLOGY PROGRESS NOTE SUBJECTIVE: The patient remains in sinus rhythm. Sinus bradycardia noted during sleep. No loss of consciousness or syncope. EP consultation yesterday was appreciated. Dr. La did not feel the patient met criteria for pacemaker. OBJECTIVE: VITAL SIGNS: Blood pressure 146/65 to 105/63, heart rate 64, respiratory rate 20, and afebrile. LUNGS: Clear. CARDIAC: Regular. Normal S1 and S2 with a fourth heart sound. ABDOMEN: Soft. EXTREMITIES: No edema. IMPRESSION: 1. Asymptomatic sinus node disease. 2. Hypertensive heart disease with diastolic dysfunction and no signs of acute congestive heart failure. 3. Dementia with psychosis, improved. PLAN: 1. Stable for outpatient followup. 2. Maintain current cardiovascular regimen. 3. Maintain adequate hydration. 4. No indication for permanent pacemaker presently. Revaluation for that will occur should there be any change in condition including symptomatic bradycardia. Eligio Quiroz M.D. DR: GREG JOB#: [id number] CC:
== END 2019-10-24 15:05 | DRG 304 ==
LOC: EDBD 16:23 → EMR 16:55 → EDBD 17:35 → 2E 17:35 → EDBEDREQ 19:50 → 2E 10-22 14:45
DX: I16.0 Hypertensive urgency (principal); G92 Toxic encephalopathy; I50.33 Acute on chronic diastolic (congestive) heart failure; F01.51 Vascular dementia, unspecified severity, with behavioral disturbance; I24.9 Acute ischemic heart disease, unspecified; I11.0 Hypertensive heart disease with heart failure; F32.9 Major depressive disorder, single episode, unspecified; R00.1 Bradycardia, unspecified; R62.7 Adult failure to thrive; Z68.25 Body mass index [BMI] 25.0-25.9, adult; E86.0 Dehydration; J44.9 Chronic obstructive pulmonary disease, unspecified; I25.5 Ischemic cardiomyopathy; E78.5 Hyperlipidemia, unspecified; I69.398 Other sequelae of cerebral infarction; H54.8 Legal blindness, as defined in USA
CPT/HCPCS: 36415; 71045; 80053; 80061; 82962; 83735; 83880; 84443; 84484; 85025; 87081; 93005; 93970; 96372; 99285

== ENCOUNTER 2020-01-25 16:46 | Inpatient (IN) | payer MEDICARE, OTHER ==
[~2020-01-25] VITALS: Ht 152.4 cm; Wt 45.1 kg
[~2020-01-25 16:46] MED LIST changes: +APRESOLINE10 MG ORAL; +DOCUSATE SODIU100 MG ORAL; +FLEET ENEMA133 ML RECTAL; +MILK OF MA400 MG/51 ORAL; +MIRTAZAPINE15 M3 ORAL
--- NOTE | 2020-01-25 16:52 | Emergency Room Report ---
History of Present Illness General Chief Complaint: Multiple Trauma/Fall Source: EMS Present Illness HPI Disclaimer: Please note that this report is being documented using DRAGON technology. This can lead to erroneous entry secondary to incorrect interpretation by the dictating instrument. HPI: 89-year-old female history of dementia presents from [facility] facility for evaluation after a fall. The patient reportedly rolled out of a low bed onto the ground. Unknown whether there was a head injury per EMS. No loss of consciousness was reported. Patient reportedly has severe dementia and is typically ANO x1. She is screaming at staff and moving upper extremities without difficulty. She does not answer any questions. Does not provide any significant history. PMH: Dementia, legally blind, CAD PSH: Reviewed Allergies: Reviewed Allergies: Coded Allergies: No Known Allergies (Unverified , 06/04/19) Nursing Documentation-PMH Hx Cardiac Problems: Yes - acute ischemic heart disease Hx Hypertension: Yes Hx COPD: Yes Hx Cancer: No Hx Gastrointestinal Problems: No Hx Neurological Problems: Yes Hx Dementia: Yes Hx Speech Problem: Yes Hx Dysphasia: Yes Hx Weakness: Yes Review of Systems All Other Systems: limited - Could not obtain from patient due to dementia Physical Exam General: Awake, no acute distress HEENT: NC/AT. No tenderness or instability over the facial bones. No ecchymoses noted. No lacerations noted. EOMI. right sclera is injected. No chemosis. No discharge. Hazy corneas bilaterally. Edentulous. Cardiovascular: RRR. S1 and S2 normal. No murmur appreciated Resp: Normal work of breathing. No cough, wheezing or crackles appreciated Skin: Intact. No abrasions, laceration or rash over the exposed skin MSK: Normal tone and bulk. Moving all extremities. No obvious deformity. Neuro: Awake, somewhat agitated and combative with staff. Not answering questions but speaking in full sentences. Complaining about the blood pressure cuff. Medical Decision Making Diagnostic Impression: Primary Impression: Closed head injury Additional Impression: Closed tripod fracture of left zygomaticomaxillary complex ER Course 89-year-old female history of dementia presents from [facility] facility after reportedly rolling out of her bed. There is some tenderness and redness around the left maxilla. Concern for intracranial injury or possible facial bone fracture. Will obtain CTs of the head and facial bones. Do not believe she requires emergent labs at this time. Review of the patient's transfer documents does not show any anticoagulants on her medication list. She is awake and reportedly at her mental baseline. Laboratory Tests Test 01/25/20 19:15 White Blood Count 10.5 K/UL (4.8-10.8) Red Blood Count 4.61 M/UL (4.20-5.40) Hemoglobin 13.6 G/DL (12.0-16.0) Hematocrit 40.5 % (37.0-47.0) Mean Corpuscular Volume 88 FL (80-99) Mean Corpuscular Hemoglobin 29.5 PG (27.0-31.0) Mean Corpuscular Hemoglobin Concent 33.5 G/DL (32.0-36.0) Red Cell Distribution Width 12.8 % (11.6-14.8) Platelet Count 301 K/UL (150-450) Mean Platelet Volume 6.4 FL (6.5-10.1) L Neutrophils (%) (Auto) 75.9 % (45.0-75.0) H Lymphocytes (%) (Auto) 15.3 % (20.0-45.0) L Monocytes (%) (Auto) 6.0 % (1.0-10.0) Eosinophils (%) (Auto) 1.6 % (0.0-3.0) Basophils (%) (Auto) 1.3 % (0.0-2.0) Prothrombin Time 10.3 SEC (9.30-11.50) Prothrombin Time INR 1.0 (0.9-1.1) Activated Partial Thromboplast Time 27 SEC (23-33) Sodium Level 137 MMOL/L (136-145) Potassium Level 4.1 MMOL/L (3.5-5.1) Chloride Level 101 MMOL/L (98-107) Carbon Dioxide Level 24 MMOL/L (21-32) Anion Gap 12 mmol/L (5-15) Blood Urea Nitrogen 12 mg/dL (7-18) Creatinine 0.5 MG/DL (0.55-1.30) L Estimate Glomerular Filtration Rate > 60 mL/min (>60) Glucose Level 129 MG/DL (74-106) H Calcium Level 9.6 MG/DL (8.5-10.1) CT/MRI/US Diagnostic Results CT/MRI/US Diagnostic Results : Impression Preliminary Findings Only See Final Report For Complete Findings CT FACIAL Without Contrast: Comparison same day CT head Impression: -Study somewhat limited due to motion artifact. -No acute traumatic injury definitively identified. -Severe osteopenia. -Evaluation of cervical structures extremely limited due to patient, if there is concern, recommend dedicated CT cervical spine. Radiologist: Hayder Mcgrath MD Study ready at 17:26 and initial results transmitted at 17:47 Reevaluation Time: 18:07 Reevaluation Impression Preliminary interpretations of the CT head and facial bones shows a left tripod fracture but no evidence of intracranial injury. The patient's mentation is unchanged. Patient will be placed in observation for monitoring overnight. We will reach out to [facility] for evaluation. Discussed with PMD, Dr. Ly, who will admit the patient. He agrees with this treatment plan. Admission labs ordered Disposition: PLACE IN OBSERVATION Condition: Stable David Hamilton MD Jan 25, 2020 16:52
--- NOTE | 2020-01-25 17:48 | Diagnostic Imaging Report ---
Indication: Orbital and maxillofacial trauma and pain Technique: Continuous helical transaxial imaging of the orbits/maxillofacial structures obtained without intravenous contrast administration. Coronal 2-D reformats were also obtained. Study obtained in a Siemens sensation [address] Automatic Exposure Control was utilized. Total Dose length Product (DLP): 1774.[address] Dose Index Volume (CTDIvol): 68.7 mGy Comparison: None Findings: Acute, minimally displaced fractures of the anterior wall the left maxillary sinus, the lateral wall of the left orbit, left zygomatic arch demonstrated. Small air-fluid level noted within the left maxillary sinus. There is a fracture of the left orbital floor and posterior wall the left maxillary sinus also noted. The right paranasal sinuses are clear. The orbits appear normal. Globes are symmetric. There is no retro-orbital hematoma. There is some motion artifact limiting evaluation. IMPRESSION: Acute left-sided trimalar fracture. Fractures of the lateral orbital wall, zygomatic arch, anterior and posterior menon of the left maxillary sinus demonstrated. [facility] has communicated the preliminary results to the Emergency Department. Their findings are largely concordant with this report. The CT scanner at [facility] is accredited by the [employer] and the scans are performed using dose optimization techniques as appropriate to a performed exam including Automatic Exposure control.
--- NOTE | 2020-01-25 17:50 | Diagnostic Imaging Report ---
Indication: Headache Technique: Contiguous 5 mm thick transaxial imaging of the head obtained in a Siemens Sensation [address] scanner. Soft tissue and bone windows generated. Automatic Exposure Control was utilized. Total Dose length Product (DLP): 1774.4mGycm CT Dose Index Volume (CTDIvol): 68.7 mGy Comparison: 06/06/2019 Findings: There is disproportionate ventriculomegaly present. There is mild to moderate atrophy elsewhere with prominence of the sulci and basal cisterns. There is encephalomalacia in the right occipital region consistent with an old infarct. Periventricular low attenuation noted. The bones are unremarkable. There is a small air-fluid level in the left maxillary sinus. IMPRESSION: Disproportionate ventriculomegaly. This is stable in appearance compared to last examination but may indicate normal pressure hydrocephalus. Correlate clinically. Mild to moderate atrophy of the brain Old right occipital infarct Chronic small vessel ischemia involving periventricular white matter suspected. The CT scanner at [facility] is accredited by the [employer] and the scans are performed using dose optimization techniques as appropriate to a performed exam including Automatic Exposure control.
[2020-01-25] MEDS ORDERED: ROBITUSSIN COU118 M1 ORAL (18:41)
[2020-01-25 19:26] VITALS: BP 137/77
[2020-01-25 19:42] LABS: ANION GAP 12 mmol/L (5-15); BLOOD UREA NITROGEN 12 mg/dL (7-18); CALCIUM 9.6 MG/DL (8.5-10.1); CARBON DIOXIDE 24 MMOL/L (21-32); CHLORIDE 101 MMOL/L (98-107); CREATININE 0.5 MG/DL (0.55-1.30); POTASSIUM 4.1 MMOL/L (3.5-5.1); SODIUM 137 MMOL/L (136-145)
[2020-01-25 19:43] LABS: BASOPHILS % (AUTO) 1.3 % (0.0-2.0); EOSINOPHILS % (AUTO) 1.6 % (0.0-3.0); HEMATOCRIT 40.5 % (37.0-47.0); HEMOGLOBIN 13.6 G/DL (12.0-16.0); LYMPHOCYTES % (AUTO) 15.3 % (20.0-45.0); MEAN CORPUSCULAR VOLUME 88 FL (80-99); NEUTROPHILS % (AUTO) 75.9 % (45.0-75.0); PLATELET COUNT 301 K/UL (150-450); RED BLOOD COUNT 4.61 M/UL (4.20-5.40); RED CELL DISTRIBUTION WIDTH 12.8 % (11.6-14.8); WHITE BLOOD COUNT 10.5 K/UL (4.8-10.8)
[2020-01-25 21:00] VITALS: BP 137/77
[2020-01-25] MEDS ORDERED: Milk of Magnesia 30ml Ud ORAL PRN (21:45)
[2020-01-25] MEDS ORDERED: Fleet's Enema 133ml RECTAL PRN (21:45)
[2020-01-25] MEDS: LORazepam 1mg tab ORAL PRN (21:59)
[2020-01-26] VITALS: BP 143/79
[2020-01-26 04:00] VITALS: BP 133/77
[2020-01-26 08:00] VITALS: BP 134/56
[2020-01-26] MEDS: Aspirin Baby 81mg ORAL SCH (08:31)
[2020-01-26] MEDS: Docusate 100mg cap ORAL SCH ×2 (08:31→17:41)
[2020-01-26 12:00] VITALS: BP 131/80
--- NOTE | 2020-01-26 15:45 | History and Physical Report ---
DATE OF ADMISSION: 01/25/2020 CHIEF COMPLAINT: Fall versus syncopal episode, tripod fracture. HISTORY OF PRESENT ILLNESS: The patient is an 89-year-old female. She has a history of ischemic cardiomyopathy, hypertension, dementia, depression, COPD who was admitted from an outside hospital after being down on the floor. The patient has a history of dementia. She often is uncooperative and noncompliant, was calling nurses to get out of the bed. She was found on the floor. It is unclear whether she has fallen or had a syncopal episode exactly that the patient had a mechanical fall. She was transferred to the emergency room. On evaluation there, she was noted to have a tripod fracture. Her extraocular movements were intact. In light of the fall and the trauma, she has been placed on observation. PAST MEDICAL HISTORY: As above. She has a history of paroxysmal atrial fibrillation, hypertension. CURRENT MEDICATIONS: Reconciled and reviewed. ALLERGIES: None. FAMILY HISTORY: None. SOCIAL HISTORY: There is no known history of tobacco, ethanol, or drugs. REVIEW OF SYSTEMS: Unobtainable as the patient is confused. PHYSICAL EXAMINATION: VITAL SIGNS: Temperature 98 degrees, pulse 82, respirations 20, blood pressure 133/77. GENERAL: The patient is well developed, no apparent distress. There is no obvious bruising noted. NECK: Supple. HEART: Regular rate and rhythm. LUNGS: Clear. ABDOMEN: Soft, nontender, nondistended. EXTREMITIES: There is no clubbing, cyanosis, or edema. NEUROLOGICAL: The patient is confused. She opens her eyes. Extraocular movements are intact. She is blind at baseline though. She moves all four extremities. Follows some simple commands. LABORATORY DATA: White count 10, hemoglobin 13, hematocrit 40, platelets 301. Sodium is 137. Troponin is pending. ASSESSMENT: This is a pleasant female with a history of dementia, ischemic cardiomyopathy, paroxysmal atrial fibrillation, hypertension, dementia, depression admitted with likely a mechanical fall. Cannot rule out a true syncopal episode, but based on history, it sounds unlikely. PLAN: Followup troponin. has already contacted. The patient can be followed as an outpatient. Hold on antiplatelet therapy for the next week. Discharge planning back to the [facility] facility if stable. We will continue to monitor neuro checks. Kemar Ly M.D. DR: SOLOMON JOB#: [id number] CC:
[2020-01-26 16:00] VITALS: BP 132/89
[2020-01-26 20:00] VITALS: BP 115/67
[2020-01-27] VITALS: BP 137/87
[2020-01-27] MEDS: LORazepam 1mg tab ORAL PRN ×2 (00:34→23:47)
[2020-01-27 04:00] VITALS: BP 148/88
--- NOTE | 2020-01-27 04:59 | Consultation ---
DATE OF CONSULTATION: 01/25/2020 CARDIOLOGY CONSULTATION CONSULTING PHYSICIAN: Eligio Quiroz M.D. REQUESTING PHYSICIAN: Kemar Ly M.D. REASON: Syncope. HISTORY OF PRESENT ILLNESS: This is an 89-year-old female with known history of ischemic heart disease, was found out of bed. It is unclear whether she fell or had a syncopal episode. In fact here in the emergency room where a tripod fracture was confirmed. She was transferred here for further care. The patient is unable to give reliable information. Records have been reviewed. MEDICATIONS: Prior to admission, reviewed and reconciled. ALLERGIES: None. PAST MEDICAL HISTORY: Includes hypertension, coronary artery disease, cardiomyopathy, cerebrovascular disease, dementia, depression, COPD, paroxysmal atrial fibrillation, chronic kidney disease, and legally blind. SOCIAL HISTORY: No known record of prior smoking or alcohol abuse. No substance abuse. REVIEW OF SYSTEMS: Otherwise cannot be reliably obtained from the patient and all pertinent data from records as outlined above. PHYSICAL EXAMINATION: VITAL SIGNS: Afebrile. Blood pressure 133/77, pulse 82, respirations 20. Temporal wasting. HEENT: Pale conjunctivae. Arcus senilis. Oropharynx clear. NECK: Supple. Jugular venous pressure normal. LUNGS: Clear. CARDIAC: Regular rhythm and rate. Normal S1, S2 with a 1/6 systolic murmur at lower left sternal border. ABDOMEN: Soft, nontender. EXTREMITIES: No edema. LABORATORY AND DIAGNOSTIC DATA: Troponin negative. EKG, sinus rhythm, nonspecific ST-T wave changes. Voltage for LVH. IMPRESSION: 1. Probable mechanical fall. 2. Tripod fracture due to fall. 3. Cardiomyopathy. 4. Paroxysmal atrial fibrillation. 5. Chronic diastolic congestive heart failure. 6. Hypertensive heart and renal disease with controlled blood pressure. PLAN: 1. Pain control. 2. Maintain cardiovascular regimen. 3. Outpatient Holter monitor to be considered for further concern of syncope. Eligio Quiroz M.D. DR: JAVIER JOB#: [id number] CC: FRANTZ
[2020-01-27 08:00] VITALS: BP 123/70
[2020-01-27] MEDS: Docusate 100mg cap ORAL SCH ×2 (08:21→16:57)
[2020-01-27] MEDS: Aspirin Baby 81mg ORAL SCH (08:21)
[2020-01-27 12:00] VITALS: BP 144/83
[2020-01-27 16:00] VITALS: BP 126/65
--- NOTE | 2020-01-27 17:44 | General Progress Note ---
Assessment/Plan Problem List: (1) ACS (acute coronary syndrome) ICD Codes: I24.9 - Acute ischemic heart disease, unspecified SNOMED: 835639888 (2) Failure to thrive SNOMED: 26634829 (3) Multi-infarct dementia ICD Codes: F01.50 - Vascular dementia without behavioral disturbance SNOMED: 26023610 (4) Facial contusion ICD Codes: S00.83XA - Contusion of other part of head, initial encounter SNOMED: 388342134 (5) Head injury without fracture of skull ICD Codes: S09.90XA - Unspecified injury of head, initial encounter SNOMED: 20597730 (6) Closed head injury ICD Codes: S09.90XA - Unspecified injury of head, initial encounter SNOMED: 637012815113 (7) Closed tripod fracture of left zygomaticomaxillary complex ICD Codes: S02.40FA - Zygomatic fracture, left side, initial encounter for closed fracture; S02.40DA - Maxillary fracture, left side, initial encounter for closed fracture; S02.842A - Fracture of lateral orbital wall, left side, initial encounter for closed fracture SNOMED: 94640721504188338 Status: stable, progressing Assessment/Plan: cont anxiolytics d/w ent- no urgent need for intervention pain control anxiolytics psych rx cards appreciated Subjective ROS Limited/Unobtainable: No Constitutional: Reports: malaise, weakness HEENT: Reports: no symptoms Cardiovascular: Reports: no symptoms Respiratory: Reports: no symptoms Gastrointestinal/Abdominal: Reports: no symptoms Genitourinary: Reports: no symptoms Neurologic/Psychiatric: Reports: anxiety, emotional problems Endocrine: Reports: no symptoms Hematologic/Lymphatic: Reports: anemia Allergies: Coded Allergies: No Known Allergies (Unverified , 06/04/19) All Systems: reviewed and negative except above Subjective no events. w/o complaints. agitated and confused. no fever or chills. given ativan- pt was screaming last night Objective Last 24 Hour Vital Signs Date Time Temp Pulse Resp B/P (MAP) Pulse Ox O2 Delivery O2 Flow Rate FiO2 01/27/20 16:00 97.4 62 17 126/65 (85) 98 01/27/20 12:00 97.2 66 20 144/83 (103) 96 01/27/20 08:53 Room Air 01/27/20 08:00 97.4 83 20 123/70 (87) 95 01/27/20 04:00 98.5 97 20 148/88 (108) 98 01/27/20 00:00 98.4 99 20 137/87 (104) 98 01/26/20 20:51 Room Air 01/26/20 20:00 98.8 81 20 115/67 (83) 98 Intake and Output 01/26/20 01/27/20 19:00 07:00 Intake Total 500 ml Balance 500 ml Other 500 ml # Voids 2 Height (Feet): 5 Height (Inches): 0.00 Weight (Pounds): 100 General Appearance: WD/WN, alert Neck: supple Cardiovascular: normal peripheral pulses, normal rate, regular rhythm Respiratory/Chest: chest wall non-tender, lungs clear, normal breath sounds, no respiratory distress Abdomen: normal bowel sounds, non tender, soft, no organomegaly, no mass Edema: no edema noted Arm (L), no edema noted Arm (R), no edema noted Leg (L), no edema noted Leg (R), no edema noted Pedal (L), no edema noted Pedal (R), no edema noted 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
[2020-01-27 20:00] VITALS: BP 117/69
[2020-01-28] VITALS: BP 112/77
--- NOTE | 2020-01-28 01:00 | Progress Note ---
DATE: 01/27/2020 CARDIOLOGY PROGRESS NOTE SUBJECTIVE: The patient has no complaints. Remains confused and agitated requiring Ativan at times. Screaming at night. OBJECTIVE: VITAL SIGNS: Blood pressure 126/65, pulse 62, respirations 17, and afebrile. LUNGS: Clear. HEENT: Temporal wasting. Oropharynx clear. NECK: Supple. No accessory muscle use. CARDIAC: Regular rhythm and rate. Normal S1, S2 with a fourth heart sound. ABDOMEN: Soft. EXTREMITIES: No edema. IMPRESSION: 1. Dementia with psychosis and agitation. 2. Mechanical fall with maxillary fracture on the left. 3. Paroxysmal atrial fibrillation. 4. Chronic diastolic congestive heart failure. 5. Hypertensive heart and renal disease. PLAN: 1. Pain control. 2. Nutritional support. 3. Adjust IV fluids. 4. Titrate cardiovascular regimen. 5. Mobilize as able and frequently. Eligio Quiroz M.D. DR: BYRON JOB#: [id number] CC:
--- NOTE | 2020-01-28 03:15 | Progress Note ---
DATE: 01/26/2020 CARDIOLOGY PROGRESS NOTE Late entry. SUBJECTIVE: The patient remains alert. No loss of consciousness. Blood pressure parameters stable. OBJECTIVE: VITAL SIGNS: Blood pressure 132/89, pulse 67, respirations 19. LUNGS: Bilateral breath sounds. CARDIAC: Regular rhythm and rate. Normal S1, S2. ABDOMEN: Soft. EXTREMITIES: No edema. IMPRESSION: 1. Mechanical fall. 2. Tripod fracture. 3. Paroxysmal atrial fibrillation. 4. Chronic diastolic congestive heart failure. 5. Hypertensive heart and renal disease. 6. Rising blood pressure trend. 7. Hypertensive cardiomyopathy. PLAN: 1. Cardiac monitoring. 2. Pain control. 3. Mobilize. 4. Titrate antihypertensive regimen. 5. Avoid tight blood pressure control and risk of orthostasis. Eligio Quiroz M.D. DR: BYRON JOB#: [id number] CC:
[2020-01-28 04:00] VITALS: BP 107/75
[2020-01-28 08:00] VITALS: BP 127/78
[2020-01-28] MEDS ORDERED: Maxitrol Opth Susp 5ml BOTH EYES ONE (10:00)
[2020-01-28] MEDS: Docusate 100mg cap ORAL SCH ×2 (10:04→18:12)
[2020-01-28] MEDS: Aspirin Baby 81mg ORAL SCH (10:04)
[2020-01-28 12:00] VITALS: BP 129/69
[2020-01-28 16:00] VITALS: BP 100/78
--- NOTE | 2020-01-28 17:41 | General Progress Note ---
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 disturbance SNOMED: 27550211 (4) Facial contusion ICD Codes: S00.83XA - Contusion of other part of head, initial encounter SNOMED: 532127419 (5) Head injury without fracture of skull ICD Codes: S09.90XA - Unspecified injury of head, initial encounter SNOMED: 72862063 (6) Closed head injury ICD Codes: S09.90XA - Unspecified injury of head, initial encounter SNOMED: 239880707950 (7) Closed tripod fracture of left zygomaticomaxillary complex ICD Codes: S02.40FA - Zygomatic fracture, left side, initial encounter for closed fracture; S02.40DA - Maxillary fracture, left side, initial encounter for closed fracture; S02.842A - Fracture of lateral orbital wall, left side, initial encounter for closed fracture SNOMED: 95568431873591113 Status: stable, progressing Assessment/Plan: cont anxiolytics d/w ent- no urgent need for intervention pain control anxiolytics psych rx cards appreciated needs behavior to be better controlled before dc consider repeat head ct if confusion/agitation persists Subjective ROS Limited/Unobtainable: No Constitutional: Reports: malaise, weakness HEENT: Reports: no symptoms Cardiovascular: Reports: no symptoms Respiratory: Reports: no symptoms Gastrointestinal/Abdominal: Reports: no symptoms Genitourinary: Reports: no symptoms Neurologic/Psychiatric: Reports: anxiety, emotional problems Endocrine: Reports: no symptoms Hematologic/Lymphatic: Reports: no symptoms Allergies: Coded Allergies: No Known Allergies (Unverified , 06/04/19) All Systems: reviewed and negative except above Subjective no events. w/o complaints. agitated and confused. no fever or chills. medicated for agitation. Objective Last 24 Hour Vital Signs Date Time Temp Pulse Resp B/P (MAP) Pulse Ox O2 Delivery O2 Flow Rate FiO2 01/28/20 16:00 97.8 86 18 100/78 (85) 96 01/28/20 12:00 96.9 87 16 129/69 (89) 96 01/28/20 09:00 Room Air 01/28/20 08:00 97.2 63 18 127/78 (94) 95 01/28/20 04:00 97.5 61 17 107/75 (86) 95 01/28/20 00:00 97.4 77 17 112/77 (89) 95 01/27/20 22:46 Room Air 01/27/20 20:00 98.0 88 17 117/69 (85) 98 Intake and Output 01/27/20 01/28/20 19:00 07:00 # Voids 4 Height (Feet): 5 Height (Inches): 0.00 Weight (Pounds): 99 General Appearance: WD/WN, alert Neck: supple Cardiovascular: regular rhythm Respiratory/Chest: chest wall non-tender, lungs clear, normal breath sounds Abdomen: normal bowel sounds, non tender, soft, no organomegaly Edema: trace edema 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
[2020-01-28 20:00] VITALS: BP 141/61
[2020-01-29] VITALS: BP 127/71
[2020-01-29] MEDS: LORazepam 1mg tab ORAL PRN ×2 (02:19→12:27)
[2020-01-29 04:00] VITALS: BP 132/77
[2020-01-29 05:53] LABS: BASOPHILS % (AUTO) 1.6 % (0.0-2.0); EOSINOPHILS % (AUTO) 7.1 % (0.0-3.0); HEMATOCRIT 35.2 % (37.0-47.0); HEMOGLOBIN 11.6 G/DL (12.0-16.0); LYMPHOCYTES % (AUTO) 21.9 % (20.0-45.0); MEAN CORPUSCULAR VOLUME 89 FL (80-99); MONOCYTES % (AUTO) 11.1 % (1.0-10.0); NEUTROPHILS % (AUTO) 58.4 % (45.0-75.0); PLATELET COUNT 218 K/UL (150-450); RED BLOOD COUNT 3.96 M/UL (4.20-5.40); RED CELL DISTRIBUTION WIDTH 12.8 % (11.6-14.8); WHITE BLOOD COUNT 6.4 K/UL (4.8-10.8)
[2020-01-29 06:03] LABS: AMMONIA 20 umol/L (11-32)
[2020-01-29 06:16] LABS: ALANINE AMINOTRANSFERASE 20 U/L (12-78); ALBUMIN 2.2 G/DL (3.4-5.0); ALBUMIN/GLOBULIN RATIO 0.5 (1.0-2.7); ALKALINE PHOSPHATASE 81 U/L (46-116); ANION GAP 9 mmol/L (5-15); ASPARTATE AMINO TRANSFERASE 18 U/L (15-37); BILIRUBIN,TOTAL 0.6 MG/DL (0.2-1.0); BLOOD UREA NITROGEN 16 mg/dL (7-18); CALCIUM 8.9 MG/DL (8.5-10.1); CARBON DIOXIDE 25 MMOL/L (21-32); CHLORIDE 106 MMOL/L (98-107); CREATININE 0.6 MG/DL (0.55-1.30); POTASSIUM 3.4 MMOL/L (3.5-5.1); SODIUM 140 MMOL/L (136-145)
--- NOTE | 2020-01-29 06:30 | Progress Note ---
DATE: 01/28/2020 CARDIOLOGY PROGRESS NOTE SUBJECTIVE: Agitated and confused therapy. Blood pressure parameters remain stable. Cultures remain negative. PHYSICAL EXAMINATION: LUNGS: Bilateral breath sounds. HEART: Regular rhythm and rate. Normal S1, S2. ABDOMEN: Soft. EXTREMITIES: No edema. IMPRESSION: 1. Mechanical fall. 2. Paroxysmal atrial fibrillation. 3. Tripod fracture. 4. Chronic diastolic congestive heart failure. 5. Hypertensive heart and renal disease. 6. Dementia with agitation. PLAN: 1. Recheck lab studies. 2. Obtain urinalysis. 3. Check metabolic profile. Eligio Quiroz M.D. DR: DEYANIRA JOB#: [id number] CC:
[2020-01-29 08:00] VITALS: BP 120/74
[2020-01-29 08:12] LABS: APPEARANCE,URINE CLEAR; BILIRUBIN, URINE NEGATIVE (NEGATIVE); COLOR,URINE YELLOW; GLUCOSE, URINE (UA) NEGATIVE (NEGATIVE); KETONES,URINE NEGATIVE (NEGATIVE); LEUKOCYTE ESTERASE ,URINE 1+ (NEGATIVE); NITRITE,URINE NEGATIVE (NEGATIVE); PH,URINE 6 (4.5-8.0); PROTEIN,URINE 1+ (NEGATIVE); UROBILINOGEN,URINE 4 MG/DL (0.0-1.0)
--- NOTE | 2020-01-29 08:54 | General Progress Note ---
Assessment/Plan Problem List: (1) ACS (acute coronary syndrome) ICD Codes: I24.9 - Acute ischemic heart disease, unspecified SNOMED: 514816424 (2) Failure to thrive SNOMED: 64080322 (3) Multi-infarct dementia ICD Codes: F01.50 - Vascular dementia without behavioral disturbance SNOMED: 90493832 (4) Facial contusion ICD Codes: S00.83XA - Contusion of other part of head, initial encounter SNOMED: 872393171 (5) Head injury without fracture of skull ICD Codes: S09.90XA - Unspecified injury of head, initial encounter SNOMED: 17619349 (6) Closed head injury ICD Codes: S09.90XA - Unspecified injury of head, initial encounter SNOMED: 140195001509 (7) Closed tripod fracture of left zygomaticomaxillary complex ICD Codes: S02.40FA - Zygomatic fracture, left side, initial encounter for closed fracture; S02.40DA - Maxillary fracture, left side, initial encounter for closed fracture; S02.842A - Fracture of lateral orbital wall, left side, initial encounter for closed fracture SNOMED: 09626662623159700 Status: stable, progressing Assessment/Plan: cont anxiolytics d/w ent- no urgent need for intervention pain control anxiolytics psych rx cards appreciated add ivf encourage pos topical and iv abx for eye infection needs behavior to be better controlled before dc consider repeat head ct if confusion/agitation persists Subjective ROS Limited/Unobtainable: No Constitutional: Reports: malaise, weakness HEENT: Reports: eye pain Cardiovascular: Reports: no symptoms Respiratory: Reports: no symptoms Gastrointestinal/Abdominal: Reports: poor appetite, poor fluid intake Genitourinary: Reports: no symptoms Neurologic/Psychiatric: Reports: anxiety, emotional problems Endocrine: Reports: no symptoms Hematologic/Lymphatic: Reports: no symptoms Allergies: Coded Allergies: No Known Allergies (Unverified , 06/04/19) All Systems: reviewed and negative except above Subjective no events. w/o complaints. agitated and confused. no fever or chills. medicated for agitation. not eating or drinking. has pussy drainage from eye Objective Last 24 Hour Vital Signs Date Time Temp Pulse Resp B/P (MAP) Pulse Ox O2 Delivery O2 Flow Rate FiO2 01/29/20 04:00 97.3 86 18 132/77 (95) 98 01/29/20 00:00 97.7 76 18 127/71 (89) 98 01/28/20 21:00 Room Air 01/28/20 20:00 98.6 79 20 141/61 (87) 96 01/28/20 16:00 97.8 86 18 100/78 (85) 96 01/28/20 12:00 96.9 87 16 129/69 (89) 96 01/28/20 09:00 Room Air Intake and Output 01/28/20 01/29/20 19:00 07:00 Intake Total 360 ml 118 ml Balance 360 ml 118 ml Intake Oral 360 ml Other 118 ml # Voids 3 Laboratory Tests 01/29/20 05:45: White Blood Count 6.4, Red Blood Count 3.96L, Hemoglobin 11.6L, Hematocrit 35.2L , Mean Corpuscular Volume 89, Mean Corpuscular Hemoglobin 29.4, Mean Corpuscular Hemoglobin Concent 33.1, Red Cell Distribution Width 12.8, Platelet Count 218, Mean Platelet Volume 6.4L, Neutrophils (%) (Auto) 58.4, Lymphocytes ( %) (Auto) 21.9, Monocytes (%) (Auto) 11.1H, Eosinophils (%) (Auto) 7.1H, Basophils (%) (Auto) 1.6, Sodium Level 140, Potassium Level 3.4L, Chloride Level 106, Carbon Dioxide Level 25, Anion Gap 9, Blood Urea Nitrogen 16, Creatinine 0.6, Estimat Glomerular Filtration Rate > 60, Glucose Level 94, Calcium Level 8.9, Magnesium Level 1.8, Total Bilirubin 0.6, Aspartate Amino Transf (AST/SGOT) 18, Alanine Aminotransferase (ALT/SGPT) 20, Alkaline Phosphatase 81, Ammonia 20, Pro-B-Type Natriuretic Peptide [Pending], Total Protein 6.4, Albumin 2.2L, Globulin 4.2, Albumin/Globulin Ratio 0.5L, Vitamin B12 Level 677, Vitamin D 25-Hydroxy [Pending], 25-Hydroxy Vitamin D2 [Pending], 25-Hydroxy Vitamin D3 [Pending], Folate 8.3L, Thyroid Stimulating Hormone (TSH) 1.150 01/29/20 07:45: Urine Color Yellow, Urine Appearance Clear, Urine pH 6, Urine Specific [place] 1.020, Urine Protein 1+H, Urine Glucose (UA) Negative, Urine Ketones Negative, Urine Blood Negative, Urine Nitrite Negative, Urine Bilirubin Negative, Urine Urobilinogen 4H, Urine Leukocyte Esterase 1+H, Urine RBC 0-2, Urine WBC 5-10H, Urine Squamous Epithelial Cells Occasional, Urine Bacteria Occasional Height (Feet): 5 Height (Inches): 0.00 Weight (Pounds): 99 General Appearance: WD/WN, alert, confused, thin Neck: supple Cardiovascular: normal rate, regular rhythm Respiratory/Chest: chest wall non-tender, lungs clear, normal breath sounds, no respiratory distress Abdomen: normal bowel sounds, non tender, soft, no organomegaly, no mass, abnormal bowel sounds Edema: no edema noted Arm (L), no edema noted Arm (R), no edema noted Leg (L), no edema noted Leg (R), no edema noted Pedal (L), no edema noted Pedal (R), no edema noted 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
[2020-01-29] MEDS: Aspirin Baby 81mg ORAL SCH (09:24)
[2020-01-29] MEDS: Docusate 100mg cap ORAL SCH ×2 (09:24→17:22)
[2020-01-29] MEDS: 1/2NS w/KCl 20mEq 1000ml 1,000 ML IV SCH (10:46)
[2020-01-29] MEDS: ceFAZolin sod 1 GM in D5W 55 ML IVPB SCH ×2 (11:55→22:03)
[2020-01-29 12:00] VITALS: BP 126/73
[2020-01-29 16:00] VITALS: BP 150/110
[2020-01-29 20:00] VITALS: BP 149/70
[2020-01-30] VITALS: BP 130/81
[2020-01-30 04:00] VITALS: BP 164/88
[2020-01-30] MEDS: 1/2NS w/KCl 20mEq 1000ml 1,000 ML IV SCH (05:49)
[2020-01-30 08:00] VITALS: BP 145/75
[2020-01-30] MEDS: Aspirin Baby 81mg ORAL SCH (08:25)
[2020-01-30] MEDS: Docusate 100mg cap ORAL SCH ×2 (08:25→17:23)
[2020-01-30] MEDS: LORazepam 1mg tab ORAL PRN (11:21)
[2020-01-30] MEDS: ceFAZolin sod 1 GM in D5W 55 ML IVPB SCH ×2 (11:21→23:31)
[2020-01-30 12:00] VITALS: BP 152/77
--- NOTE | 2020-01-30 13:58 | General Progress Note ---
Assessment/Plan Problem List: (1) ACS (acute coronary syndrome) ICD Codes: I24.9 - Acute ischemic heart disease, unspecified SNOMED: 607738581 (2) Failure to thrive SNOMED: 51376350 (3) Multi-infarct dementia ICD Codes: F01.50 - Vascular dementia without behavioral disturbance SNOMED: 81802534 (4) Facial contusion ICD Codes: S00.83XA - Contusion of other part of head, initial encounter SNOMED: 017361646 (5) Head injury without fracture of skull ICD Codes: S09.90XA - Unspecified injury of head, initial encounter SNOMED: 03286812 (6) Closed head injury ICD Codes: S09.90XA - Unspecified injury of head, initial encounter SNOMED: 747298219404 (7) Closed tripod fracture of left zygomaticomaxillary complex ICD Codes: S02.40FA - Zygomatic fracture, left side, initial encounter for closed fracture; S02.40DA - Maxillary fracture, left side, initial encounter for closed fracture; S02.842A - Fracture of lateral orbital wall, left side, initial encounter for closed fracture SNOMED: 62301093787485728 Status: stable, progressing Assessment/Plan: cont anxiolytics d/w ent- no urgent need for intervention pain control anxiolytics psych rx cards appreciated ivf encourage pos topical and iv abx for eye infection needs behavior to be better controlled before dc consider repeat head ct if confusion/agitation persists dc planning tomorrow Subjective ROS Limited/Unobtainable: No Constitutional: Reports: malaise, weakness HEENT: Reports: eye pain, tearing Cardiovascular: Reports: chest pain Respiratory: Reports: no symptoms Gastrointestinal/Abdominal: Reports: poor appetite, poor fluid intake Genitourinary: Reports: no symptoms Neurologic/Psychiatric: Reports: anxiety Endocrine: Reports: no symptoms Hematologic/Lymphatic: Reports: no symptoms Allergies: Coded Allergies: No Known Allergies (Unverified , 06/04/19) All Systems: reviewed and negative except above Subjective no events. w/o complaints. agitated and confused. no fever or chills. medicated for agitation. not eating or drinking. has pussy drainage from eye. on iv abx and topical abx. on ivf for poor po intake. in restraints Objective Last 24 Hour Vital Signs Date Time Temp Pulse Resp B/P (MAP) Pulse Ox O2 Delivery O2 Flow Rate FiO2 01/30/20 12:00 98.2 66 18 152/77 (102) 97 01/30/20 09:00 Room Air 01/30/20 08:00 97.6 70 18 145/75 (98) 97 01/30/20 04:00 97.7 91 18 164/88 (113) 99 01/30/20 00:00 97.4 69 18 130/81 (97) 97 01/29/20 21:00 Room Air 01/29/20 20:00 97.4 77 18 149/70 (96) 100 01/29/20 16:00 97.6 91 22 150/110 (123) 96 Intake and Output 01/29/20 01/30/20 19:00 07:00 Intake Total 940 ml 580 ml Output Total 3 ml Balance 940 ml 577 ml Intake Oral 480 ml IV Total 460 ml 580 ml Output Urine Total 3 ml # Voids 2 Height (Feet): 5 Height (Inches): 0.00 Weight (Pounds): 99 Objective General Appearance: WD/WN, alert, confused, thin Neck: supple Cardiovascular: normal rate, regular rhythm Respiratory/Chest: chest wall non-tender, lungs clear, normal breath sounds, no respiratory distress Abdomen: normal bowel sounds, non tender, soft, no organomegaly, no mass, abnormal bowel sounds Edema: no edema noted Arm (L), no edema noted Arm (R), no edema noted Leg (L), no edema noted Leg (R), no edema noted Pedal (L), no edema noted Pedal (R), no edema noted 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
[2020-01-30 16:00] VITALS: BP 146/88
[2020-01-30] MEDS ORDERED: DULCOLAX10 MG RC (19:28)
[2020-01-30] MEDS ORDERED: ACETAMINOPHEN325 M1 ORAL (19:28)
[2020-01-30] MEDS ORDERED: PRO-STAT LIQUID30 ML ORAL (19:28)
[2020-01-30] MEDS ORDERED: HYDRALAZINE HCL10 MG ORAL (19:31)
[2020-01-30 20:00] VITALS: BP 156/92
[2020-01-31] VITALS: BP 109/76
[2020-01-31] MEDS: 1/2NS w/KCl 20mEq 1000ml 1,000 ML IV SCH (01:36)
[2020-01-31 04:00] VITALS: BP 106/71
[2020-01-31 08:00] VITALS: BP 110/73
[2020-01-31] MEDS: Aspirin Baby 81mg ORAL SCH (09:46)
[2020-01-31] MEDS: Docusate 100mg cap ORAL SCH (09:46)
--- NOTE | 2020-01-31 23:15 | Discharge Summary ---
DATE OF ADMISSION: 01/28/2020 DATE OF DISCHARGE: 01/30/2020 ADMISSION DIAGNOSES: 1. Mechanical fall versus syncopal episode. 2. Concussion. 3. Traumatic brain injury. 4. Toxic metabolic encephalopathy. 5. Hypertension. 6. Dementia with behavioral disturbance. DISCHARGE DIAGNOSES: 1. Mechanical fall versus syncopal episode. 2. Concussion. 3. Traumatic brain injury. 4. Toxic metabolic encephalopathy. 5. Hypertension. 6. Dementia with behavioral disturbance. 7. Small left-sided trimalar fracture. HOSPITAL COURSE: The patient is a pleasant female that [facility]. She has fallen down on the floor, was felt that she most likely bed and fell. She was transferred to the emergency room. Head CT showed no evidence of intracranial bleed, but she did have a left-sided acute trimalar fracture. Fractures involve the lateral orbital wall, zygomatic arch, anterior and posterior [place]. There was noted to be a small amount of blood. The patient's extraocular movements were intact. She is confused at baseline and essentially remained at baseline. She was admitted for observation. She developed a conjunctivitis and periorbital cellulitis, treated with intravenous antibiotics and topical antibiotics. These symptoms resolved rapidly and after several days she was stable for discharge. The patient will be discharged back to the [facility]. DISCHARGE MEDICATIONS: Please see discharge medication list for discharge medications. DIET: Regular diet. ACTIVITIES: Ad-migel. FOLLOWUP: The patient will follow up in one to two days at the [facility]. Kemar Ly M.D. DR: CHIDI JOB#: [id number] CC:
--- NOTE | 2020-01-31 23:15 | Progress Note ---
DATE: 01/31/2020 CARDIOLOGY PROGRESS NOTE Late Entry 01/30/2020 SUBJECTIVE: Drainage from left eye noted. No chest pain. No shortness of breath. Intake 4. OBJECTIVE: VITAL SIGNS: Blood pressure 152/77, pulse 66, respirations 19, and afebrile. LUNGS: Clear. CARDIAC: Regular. ABDOMEN: Soft. EXTREMITIES: No edema. IMPRESSION: 1. Conjunctivitis. 2. Mechanical fall. 3. Paroxysmal atrial fibrillation. 4. Tripod fracture. 5. Hypertensive heart and renal disease. 6. Chronic diastolic congestive heart failure. 7. Dementia with agitation. PLAN: 1. Eye care with topical antimicrobials. 2. Maintain current cardiovascular regimen. 3. Monitor electrolytes and replace accordingly. 4. Behavioral therapy in progress. Eligio Quiroz M.D. DR: GREG JOB#: [id number] CC:
--- NOTE | 2020-01-31 23:15 | Progress Note ---
DATE: 01/31/2020 CARDIOLOGY PROGRESS NOTE SUBJECTIVE: No respiratory distress. Blood pressure parameters are stable. OBJECTIVE: VITAL SIGNS: Blood pressure 110/73, heart rate 81, and respiratory rate 18. LUNGS: Bilateral breath sounds. CARDIAC: Regular rhythm and rate. Normal S1 and S2. No new murmur. ABDOMEN: Soft. EXTREMITIES: No edema. IMPRESSION: 1. Mechanical fall with tripod fracture, no emergent surgical plan. 2. Conjunctivitis, on topical antimicrobials. 3. Hypertensive heart disease with controlled blood pressure. 4. Dementia with agitation, now at baseline. 5. Compensated diastolic dysfunction with no signs of acute congestive heart failure. PLAN: 1. Plan of care reviewed. 2. Medications discussed for discharge. 3. Outpatient followup planned. Eligio Quiroz M.D. DR: JOSE JOB#: [id number] CC:
== END 2020-01-31 12:27 | DRG 86 ==
LOC: EDBD 16:46 → EMR 17:10 → EDBEDREQ 18:14 → 4E 18:45 → EDBEDREQ 21:00 → OBSVTOIN 01-28 15:36
DX: S02.842A Fracture of lateral orbital wall, left side, initial encounter for closed fracture (principal); S06.0X9A Concussion with loss of consciousness of unspecified duration, initial encounter; I13.0 Hypertensive heart and chronic kidney disease with heart failure and stage 1 through stage 4 chronic kidney disease, or unspecified chronic kidney disease; I50.32 Chronic diastolic (congestive) heart failure; I24.9 Acute ischemic heart disease, unspecified; L03.213 Periorbital cellulitis; F01.51 Vascular dementia, unspecified severity, with behavioral disturbance; S02.40FA Zygomatic fracture, left side, initial encounter for closed fracture; S02.40DA Maxillary fracture, left side, initial encounter for closed fracture; J44.9 Chronic obstructive pulmonary disease, unspecified; I25.5 Ischemic cardiomyopathy; N18.9 Chronic kidney disease, unspecified; I48.0 Paroxysmal atrial fibrillation; S06.890A Other specified intracranial injury without loss of consciousness, initial encounter; S00.83XA Contusion of other part of head, initial encounter; W19.XXXA Unspecified fall, initial encounter; Y92.129 Unspecified place in nursing home as the place of occurrence of the external cause; H10.9 Unspecified conjunctivitis
CPT/HCPCS: 36415; 70450; 70486; 80048; 80053; 81003; 82140; 82306; 82607; 82746; 83735; 83880; 84443; 84484; 85025; 85610; 85730; 87070; 87081; 87205; 93306; 99284